=== PATIENT | female | born 1985 | race Caucasian/White ===

== ENCOUNTER 2017-10-15 18:55 | Inpatient (IN) | payer OTHER ==
[2017-10-15] MEDS ORDERED: LORazepam 1 MG TAB PO STA (19:34)
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
[2017-10-15 20:40] LABS: Amphetamine Screen,Urine Detected (NotDetected); Barbiturate Screen,Urine Not Detected (NotDetected); Benzodiazepines Screen,Urine Not Detected (NotDetected); Cocaine Screen,Urine Not Detected (NotDetected); Methadone Screen, Urine Not Detected (NotDetected); Opiate Screen,Urine Not Detected (NotDetected); Oxycodone Screen, Urine Not Detected (NotDetected); Phencyclidine Screen,Urine Not Detected (NotDetected); Tricyclic Antidepressant,Urine Not Detected (NotDetected); Urn Cannabinoid Scrn Detected (NotDetected)
[2017-10-15 20:52] LABS: Appearance,Urine Cloudy (Clear); Bacteria,Urine Many /hpf; Bilirubin,Urine Negative (Negative); Blood,Urine Moderate (Negative); Color,Urine Yellow; Glucose,Urine (UA) Negative (Negative); Ketones,Urine Negative (Negative); Leukocyte Esterase,Urine Moderate (Negative); Mucus,Urine Many /hpf; Nitrite,Urine Positive (Negative); PH, Urine 5.5 (5.0-8.0); Protein,Urine 1+ (Negative); Specific Gravity,Urine 1.025 (1.001-1.035); Squamous Epithelial Cell,Urine 5 /hpf (0-4); WBC,Urine 34 /hpf (0-5)
[2017-10-15 20:57] LABS: Basophils % (A) 0 %; Eosinophils # (A) 0.2 k/uL (0-0.7); Eosinophils % (A) 2 %; HCT 40.9 % (34.0-46.0); HGB 13.4 gm/dL (11.4-16.0); Lymphocytes # (A) 2.3 k/uL (1.0-4.8); Lymphocytes % (A) 22 %; MCH 28.2 pg (25.0-35.0); MCHC 32.9 g/dL (31.0-37.0); MCV 85.9 fL (80.0-100.0); Mean Platelet Volume 8.4; Monocytes % (A) 10 %; Neutrophils # (A) 6.6 k/uL (1.3-7.7); Neutrophils % (A) 63 %; Platelet Count 214 k/uL (150-450); RBC 4.76 m/uL (3.80-5.40); RDW 13.6 % (11.5-15.5); WBC 10.5 k/uL (3.8-10.6)
[2017-10-15 21:07] LABS: ALT 23 U/L (9-52); AST 13 U/L (14-36); Alkaline Phosphatase 47 U/L (38-126); Anion Gap 8 mmol/L; Blood Urea Nitrogen 11 mg/dL (7-17); Calcium 9.2 mg/dL (8.4-10.2); Carbon Dioxide 23 mmol/L (22-30); Chloride 108 mmol/L (98-107); Glucose 89 mg/dL (74-99); Potassium 3.9 mmol/L (3.5-5.1); Sodium 139 mmol/L (137-145); Total Bilirubin 0.7 mg/dL (0.2-1.3); Total Protein 7.1 g/dL (6.3-8.2)
[2017-10-16] MEDS ORDERED: cefTRIAXone IN SWFI 1,000 MG/10 ML SYRINGE IVP STA (00:50)
[2017-10-16] MEDS: SULFAMETHOX-TMP 800-160MG 1 EACH TAB PO SCH ×2 (01:09→17:21)
[2017-10-16] MEDS ORDERED: ACETAMINOPHEN TAB 500 MG TAB PO STA (13:58)
[2017-10-16] MEDS ORDERED: LORazepam 1 MG TAB PO STA (13:58)
[2017-10-16] MEDS ORDERED: MAGNESIUM HYDROXIDE 2,400 MG/10 ML CUP PO PRN (17:23)
[2017-10-16] MEDS ORDERED: MAG HYDROX/AL HYDROX/SIMETH 30 ML CUP PO PRN (17:23)
[2017-10-16] MEDS ORDERED: NICOTINE 14MG/24HR PATCH TRANSDERM SCH (17:30)
[2017-10-17] MEDS: SULFAMETHOX-TMP 800-160MG 1 EACH TAB PO SCH ×2 (06:26→17:53)
--- NOTE | 2017-10-17 08:23 | CONS ---
CONSULTATION DATE OF SERVICE: 10/16/2017. REASON FOR CONSULTATION: Advice regarding urinary tract infection and other multiple medical issues requested by Psychiatry. HISTORY OF PRESENT ILLNESS: This 32-year-old woman with a past medical history of multiple medical problems including history of migraine, history of bipolar, depression being followed by Dr. Lozano in the outpatient setting admitted for psychiatric evaluation. The patient had some history of binge drinking and substance abuse including methamphetamines, opiates and prescription drug abuse. Also the patient came to [facility]. The patient had features of UTI. Bactrim was initiated. There is no history of fever, rigors. No history of headache, loss of consciousness, seizures. PAST MEDICAL HISTORY: History of migraines, history of bipolar and depression, history of substance abuse. MEDICATIONS: Prior to admission include home medications Bactrim DS 1 p.o. b.i.d. ALLERGIES: None. FAMILY HISTORY: History of blood disorders, diabetes, hypertension, pancreatic cancer. SOCIAL HISTORY: No previous history of smoking. No history of alcohol intake. REVIEW OF SYSTEMS: ENT: No diminished hearing or vision. CARDIOVASCULAR: No angina. RESPIRATORY: No cough. GI: As mentioned earlier. : As mentioned earlier. NERVOUS SYSTEM: No numbness or weakness. ALLERGY/IMMUNOLOGY: No history of asthma or hay fever. MUSCULOSKELETAL: As mentioned earlier. HEMATOLOGY: No history of anemia. ENDOCRINE: No history of diabetes or hypothyroidism. CONSTITUTIONAL: As mentioned earlier. DERMATOLOGY: Negative. RHEUMATOLOGY: Negative. PSYCHIATRY: As mentioned earlier. PHYSICAL EXAMINATION: Alert, oriented x3. Pulse 82, blood pressure 120/97, respiration 18, temperature 97.7, pulse ox 98% on room air. HEENT: Conjunctivae normal. Oral mucosa moist. NECK: No jugular venous distention. No carotid bruit. No lymph node enlargement. CARDIOVASCULAR: S1, S2. RESPIRATORY: Breath sounds diminished in the bases. A few scattered rhonchi. No crackles. ABDOMEN: Soft, nontender. No mass palpable. LEGS: No edema, no swelling. NERVOUS SYSTEM: Higher functions as mentioned earlier. Otherwise, cranial nerves 2 through 12 grossly intact. No eye deviation. No nystagmus and no facial deviation. Moves all 4 limbs well. Power is normal. Gait is normal. No sensory abnormalities. LYMPHATICS: No lymphadenopathy in the neck, axillae, groin. SKIN: No ulcer, rash, bleeding. JOINT: No active deforming arthropathy. LABS: CBC within normal. Sodium 139, potassium 3.8. UA noted. ASSESSMENT: 1. Acute urinary tract infection. 2. Depression with possible suicidal ideations. 3. Bipolar. 4. History of nicotine dependence. 5. History of migraines. RECOMMENDATIONS AND DISCUSSION: This 32-year-old woman presented for psychiatric evaluation, at this time I recommend to continue current medications, continue with Bactrim for 5 days. Otherwise, I would recommend close follow up with primary physician in the outpatient setting. We will follow the patient closely with you. Thank you for letting us participate in the care of this patient. MMODL / IJN: [id number] /
[2017-10-17] MEDS: ARIPiprazole 10 MG TAB PO SCH (10:21)
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
[2017-10-17] MEDS: ACETAMINOPHEN TAB 325 MG TAB PO PRN (17:54)
[2017-10-17] MEDS ORDERED: MELATONIN 3 MG TABLET PO SCH (21:00)
[2017-10-18] MEDS: SULFAMETHOX-TMP 800-160MG 1 EACH TAB PO SCH ×2 (08:27→18:03)
[2017-10-18] MEDS: ARIPiprazole 10 MG TAB PO SCH (08:27)
[2017-10-18] MEDS: ACETAMINOPHEN TAB 325 MG TAB PO PRN ×2 (11:52→22:11)
[2017-10-18] MEDS: hydrOXYzine PAMOATE 25 MG CAP PO PRN ×2 (11:56→21:04)
--- NOTE | 2017-10-18 13:59 | P.PN ---
Progress Note - Text Progress Note Date: 10/18/17 Interval History: Patient is a 32-year-old female who was seen today and she states that she doesn't want to take the melatonin anymore because gave her headache made her dream area patient states that she went to 1 group yesterday. She states that she is feeling overwhelmed but can't tell me why and states that she doesn't like to be around people and asked why she doesn't go to many groups. Patient states that she is feeling anxious. She states that she's been writing down her thoughts. She denies any current suicidal ideation but continues to feel depressed. She said her appetite has improved. Mental Status: Appearance/Attitude: Patient is casually dressed, makes intermittent eye contact and is cooperative. Behavior: Patient does not exhibit any psychomotor agitation or retardation. Speech/Language: Patient's speech is spontaneous of normal volume and rhythm and she is coherent Thought Process: Patient is goal-directed there is no evidence of loose association or flight of ideas Thought Content: Patient denies any auditory or visual hallucinations no delusions or paranoid ideation or elicited. Patient states that she drank last night and did not like the melatonin and states that she has a headache this morning. She states she continues to feel overwhelmed for a number of reasons and isn't attending groups images like to be around people. She states her appetite is improved. She states she did not sleep at all last night and was up and down all evening. Suicidal/Homicidal Ideation: Patient denies any current suicidal or homicidal ideation Sensorium/Cognition: Patient is alert and oriented to person, place, and time and her recent remote memory are grossly intact Mood/Affect: Patient's mood remains depressed and her affect blunted, patient's complaining of feeling anxious Insight/Judgment: Patient's insight and judgment are fair Assessment: Patient states that she is not attending group sessions like to be around people, states that she didn't sleep at all last night was up and down all night it's documented the patient slept for 6 hours patient states that she only attended 1 group yesterday. She continues to feel overwhelmed for a number of reasons. Patient states that she is writing and that has been helpful. Patient reported no side effects from the medication. Plan: Patient will continue on Abilify 10 mg to stabilize her mood will discontinue the melatonin and will also prescribe Vistaril 25 mg 3 times a day as needed for her anxiety complaints. Patient stated that she is not interested in any inpatient or outpatient rehab programs. Patient was encouraged to attend groups and activities. Patient continues to require hospitalization to further stabilize her mood.
[2017-10-19] MEDS: SULFAMETHOX-TMP 800-160MG 1 EACH TAB PO SCH ×2 (06:05→18:08)
[2017-10-19] MEDS: ARIPiprazole 10 MG TAB PO SCH (09:04)
[2017-10-19] MEDS: hydrOXYzine PAMOATE 25 MG CAP PO PRN ×2 (09:04→19:11)
--- NOTE | 2017-10-19 12:19 | P.PN ---
Progress Note - Text Progress Note Date: 10/19/17 Interval History: Patient is a 32-year-old female who was seen today and she reports that she is feeling better as her thinking is improved and her focus is better. Patient states that she attended 2 groups today and is not feeling as overwhelmed or anxious. Patient feels the Vistaril has been helping and she reports no further headaches. She states that she slept for about 5-6 hours last night and was up in the middle of the night and then return to sleep. She reports that her mood is more stable and she is not at any further crying spells. She denied any suicidal thoughts. Mental Status: Appearance/Attitude: Patient is casually dressed and makes good eye contact and was cooperative Behavior: Patient does not exhibit any psychomotor agitation or retardation. Speech/Language: Patient's speech is spontaneous of normal volume and rhythm and she is coherent Thought Process: Patient is goal-directed there is no evidence of loose association or flight of ideas Thought Content: Patient denies any auditory or visual hallucinations and no delusions or paranoid ideation or elicited. She states that she is feeling less anxious the Vistaril has been beneficial and she is no longer having headaches. Patient states that she's been attending groups today and finds that her thinking is improved and her focus is improved. She states that she slept for about 5-6 hours last night and her appetite is good. Suicidal/Homicidal Ideation: She denies any current suicidal or so homicidal ideation Sensorium/Cognition: Patient is alert and oriented to person, place, and time and her recent and remote memory are grossly intact. Patient states that her focus is improved Mood/Affect: Patient's mood is less depressed and her affect is brighter, she states her mood is more stable Insight/Judgment: Patient's insight and judgment are fair Assessment: Patient reports that she is feeling less overwhelmed, reports no suicidal ideation and states her mood is more stable. She reports that her thinking and focus have improved as well. Patient states that the Vistaril been helping with her anxiety and she is no longer having any headaches. Patient states that she began attending groups today. Patient appeared much brighter than she did on prior assessments, patient made better eye contact and was more verbal. Patient reports no side effects from the medication. Plan: Patient will continue on Abilify 10 mg daily and Vistaril 25 mg as needed. Patient continues to require hospitalization to further stabilize her mood.
[2017-10-20] MEDS: hydrOXYzine PAMOATE 25 MG CAP PO PRN ×3 (04:54→20:36)
[2017-10-20] MEDS: SULFAMETHOX-TMP 800-160MG 1 EACH TAB PO SCH ×2 (07:25→17:44)
[2017-10-20] MEDS: ARIPiprazole 10 MG TAB PO SCH (08:40)
[2017-10-20] MEDS ORDERED: ARIPiprazole 5 MG TAB PO STA (09:06)
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
[2017-10-21] MEDS: ARIPiprazole 15 MG TAB PO SCH (08:15)
[2017-10-21] MEDS: hydrOXYzine PAMOATE 25 MG CAP PO PRN ×2 (08:16→19:56)
--- NOTE | 2017-10-21 10:39 | P.PN ---
Progress Note - Text Progress Note Date: 10/21/17 Interval History: Patient is a 32-year-old female who was seen today and she reports that she got upset again yesterday afternoon after speaking with her girlfriend who was upset that the patient had come for inpatient treatment and felt that she had just gone for outpatient treatment she would've been better off. Patient states that she spoke with staff and states that she was better able to cope with this and has been using journaling as a way to unwind at night. Patient states that she slept about 5 hours last night and feels rested this morning. She states that she is a longer constipated. She reports that she feels the increase in the dose of the Vistaril has been beneficial. Mental Status: Appearance/Attitude: Patient is casually dressed, making eye contact and is cooperative. Behavior: Patient does not exhibit any psychomotor agitation or retardation. Speech/Language: Patient's speech is spontaneous of normal volume and rhythm and she is coherent. Thought Process: Patient is goal-directed no evidence of loose association or flight of ideas Thought Content: Patient denies any auditory or visual hallucinations and no delusions or paranoid ideation or elicited. Patient states that she feels she is coping much better, dealt well with an issue with her girlfriend who was complaining that the patient had gone for inpatient treatment. Patient states that she feels less agitated and irritable and states that the Vistaril has been beneficial to help with anxiety. Patient states that she is eating and sleeping fairly well. Suicidal/Homicidal Ideation: Patient denies any current suicidal or homicidal ideation Sensorium/Cognition: Patient is alert and oriented to person, place, and time and her recent and remote memory are grossly intact Mood/Affect: Patient's mood is more positive less depressed and her affect is bright Insight/Judgment: Patient's insight and judgment are intact Assessment: Reports he feels that the increase in the Abilify and Vistaril been helpful, she feels she dealt well with an incident with her girlfriend yesterday. Patient feels that she is coping better with things not flying off the handle no longer feeling as irritable or agitated and not reporting any depressive symptoms. Patient states that she slept only about 5 hours last night and feels rested but states she had a hard time falling asleep but she continues to ruminate about the things that she needs to take care of. Patient reports no side effects from the medication. Patient is attending groups and activities. Plan: Patient will continue on Abilify 15 mg to target her mood and Vistaril 50 mg as needed to target her anxiety. Patient and I discussed discharge on Monday and she was agreeable with this plan.
[2017-10-21] MEDS: ACETAMINOPHEN TAB 325 MG TAB PO PRN ×2 (18:20→23:04)
[2017-10-22] MEDS: hydrOXYzine PAMOATE 25 MG CAP PO PRN ×2 (06:20→17:48)
[2017-10-22] MEDS: ARIPiprazole 15 MG TAB PO SCH (08:32)
--- NOTE | 2017-10-22 11:16 | P.PN ---
Progress Note - Text Progress Note Date: 10/22/17 Interval History: Patient is a 32-year-old female who presents today and states that her partner came last night and was accusing the patient and abandoning her children, and other concerns. Patient states that she was quite upset got up and left the room and then became even more upset as time went on. Patient stated that she had thoughts of hurting herself again but after speaking with the staff member was able to calm herself somewhat. Patient states that she did make a list of pros and cons of the relationship and was able to see that the cons outweigh the pros. Patient states that this is been a relationship that began in February of this year and the partner left her for her ex-partner and then returned to the patient. Patient states she's not been working, they' ve not been living together as when the patient became homeless she could not move in with the patient's cousin. Patient states she is able to see that the relationship is not a healthy one, that her partner has not been supportive of her decision to come into the hospital and that she did not abandoning her children. Patient reports that her sleep was disrupted last night she feels tired this morning but no longer feeling suicidal. Mental Status: Appearance/Attitude: Patient is casually dressed, makes good eye contact and is cooperative. Behavior: Patient did not display any psychomotor agitation or retardation, patient appears tired Speech/Language: Patient's speech was spontaneous of normal volume and rhythm and she is coherent.] Thought Process: Patient was goal-directed there is no evidence of loose association or flight of ideas Thought Content: Patient denied any auditory or visual hallucinations and no delusions or paranoid ideation were elicited. Patient had a long discussion regarding her interaction with her partner last night which became quite emotional and the patient was feeling suicidal last night. Patient states that her sleep was disrupted last night as she was ruminating about the situation and what her partner had set. Patient states that she slept poorly last night but her appetite remains good. Suicidal/Homicidal Ideation: Patient denies any current suicidal or homicidal ideation. Sensorium/Cognition: Patient is alert and oriented to person, place, and time and her recent and remote memory are grossly intact Mood/Affect: Patient's mood is euthymic and her affect is appropriate Insight/Judgment: Insight and judgment are fair Assessment: Patient had a difficult meeting with her partner last night who accused the patient of abandoning her children and other things. Patient was upset after the meeting with her abruptly left that meeting and had suicidal thoughts last evening. Patient was able to speak with staff and she states that she is a longer having any suicidal thoughts. Patient has been able to look at her partner statements last night in a more objective fashion and sees that they are not accurate representations of the situation. Patient sees that the relationship is not a healthy one. Patient reports that her sleep was disrupted, she slept for only 3 hours last night and is appearing tired this morning but states that she is eating and attending groups and activities. Plan: Patient continue on Abilify 15 mg daily and Vistaril when necessary for anxiety which she states is been effective. Patient and I discussed her relationship with her partner and her need to look at the relationship and an objective fashion. Patient states that her relationship with her cousin is a supportive one and that's who she is going to be living with upon discharge. Patient and I again discussed possible discharge tomorrow should the patient feel that she is ready for such.
[2017-10-23 06:30] VITALS: BP 120/77; PULSE 73; RESP 14; TEMP 97.6
[2017-10-23] MEDS: ARIPiprazole 15 MG TAB PO SCH (09:20)
[2017-10-23] MEDS: ACETAMINOPHEN TAB 325 MG TAB PO PRN (09:21)
--- NOTE | 2017-10-23 09:23 | P.DS ---
Providers Date of admission: 10/16/17 16:15 Expected date of discharge: 10/23/17 Attending physician: Marija Nick MD Consults: 10/16/17 17:23 Consult Physician Routine Consulting Provider: Júnior Varma Consult Reason/Comments: follow up H & P Do you want consulting provider notified?: Already Contacted Primary care physician: [facility] Course: Discharge Diagnosis: Bipolar disorder, type II current episode depressed; alcohol use disorder, mild; cannabis use disorder, mild; amphetamine use disorder, mild Reason for Admission: Patient is a 32-year-old female presented to the emergency room after trying to jump out of her running car. Patient states that she's become increasingly depressed recently, using alcohol in binges states she 's been homeless for the last month with her 3 children after she broke up with her boyfriend in [place]. Patient states she's been living with friends or in her car without her 3 children have been staying with friends or her cousin. Patient states that she has been feeling increasingly depressed with no energy or interest to do things and her sleep has been poor. She states that she spends a lot of time sleeping and her appetite is decreased. Patient states that she attempted to jump out of the car yesterday but her 3-year-old called for her and she stopped. She states she is not been taking care of her personal hygiene and does admit to caring for her 3 children. Patient states that she's been feeling overwhelmed having crying spells and feels that people are staring at her. She states that she wants to end her life and feels that her children will be better off without her. Patient states that she's been treated by her primary care physician's with antidepressants over the last number of years, she was last admitted at the age of 20 year but did not attend follow-up care. Patient states that she was initially treated at the age of 14 when she was sent to a [facility] due to violent behavior towards her mother, cutting herself as well as attempting suicide. She states that she was on medication for 3 months and then followed up at [facility] for one year but stopped the medication when she became at the age of 16 and has not been on medication on a consistent basis since that time. Patient is able to endorse a history of manic episodes where she will require less sleep and increased energy and be up cleaning and doing things at during the evening. She states that she has a lot of energy during these periods of time but that recently the episodes have only lasted for a day or 2. She states that her depressive episodes last for a much longer period of time. Patient states she is also been using alcohol, drinking a half of a fifth to a fifth on a daily basis until she passes out. Patient tried methamphetamine for the first time the other day states she uses marijuana occasionally and states that she's used IV heroin since the age of 29 but has not used for the last 7 months. Patient does use Adderall and has since her teenage years on a daily basis currently every other week or weekly. Mental status on Admission: Appearance/Attitude: Patient is casually dressed, makes intermittent eye contact and was cooperative Behavior: Patient does not exhibit any psychomotor agitation or retardation. Speech/Language: Patient's speech is spontaneous of normal volume and rhythm and she was coherent Thought Process: Patient is goal-directed there sounds loose association or flight of ideas Thought Content: Patient denies any auditory or visual hallucinations no delusions or paranoid ideation were elicited. Patient states that she's feeling overwhelmed, feels that people are staring at her and states that she's been feeling depressed with little to no energy, disrupted sleep and no appetite. Patient states that she feels like staying in bed all day. Suicidal/Homicidal Ideation: Patient states that she thought of jumping out of the car the other day but stopped when her daughter called for her and states that she continues to feel at times that her children would be better off without her. Patient states she has no current plan to act or intent. Patient denies any current homicidal ideation. Sensosrium/Cognition: Patient is alert and oriented to person, place, and time and her recent and remote memory are intact Mood/Affect: patient's mood is depressed and her affect is blunted Insight/Judgment: patient's insight and judgment are fair Hospital Course: Patient was admitted on a voluntary basis, placed on routine observation in group and activity therapy were ordered. Patient also had routine laboratory studies, medical consultation. Patient and I discussed her symptoms and she was able to endorse a history of manic episodes in the past and states she's been tried on antidepressants on and off in the past for her depressive episodes with poor results. Patient and I discussed the use and side effects of Abilify and the patient was placed on Abilify and titrated to a dose of 15 mg in the morning. Patient was also placed on Vistaril 50 mg every 8 hours when necessary to target her complaints of anxiety. Patient reported that she slowly began to feel less overwhelmed, less depressed, her sleep had improved and she was eating well. Patient had ongoing conflicts with her partner, who was not supportive of the patient being on the inpatient unit and patient was able to develop coping strategies to deal with the issues in that relationship. Patient states that she is going to live with her cousin where HER-2 older children are living and focus on her health as well as caring for her children. Patient stated that she was keeping a journal which had also helped, she was no longer having any suicidal ideation no longer was feeling overwhelmed and was not having any crying spells. Patient felt able to cope, she reported no side effects from the medication and felt that she had no need to continue to use alcohol as a way to relieve her stress. Patient and I reviewed good sleep hygiene as well as the need for exercise. Patient was eager to begin outpatient therapy, felt she was ready to return home. Patient was continued on Bactrim for 5 days to treat her urinary tract infection and the patient reported no further symptoms. Allergies No Known Allergies Allergy (Verified 10/16/17 10:10) Laboratory Last Values WBC 10.5 k/uL (3.8-10.6) 10/15/17 20:47 RBC 4.76 m/uL (3.80-5.40) 10/15/17 20:47 Hgb 13.4 gm/dL (11.4-16.0) 10/15/17 20:47 Hct 40.9 % (34.0-46.0) 10/15/17 20:47 MCV 85.9 fL (80.0-100.0) 10/15/17 20:47 MCH 28.2 pg (25.0-35.0) 10/15/17 20:47 MCHC 32.9 g/dL (31.0-37.0) 10/15/17 20:47 RDW 13.6 % (11.5-15.5) 10/15/17 20:47 Plt Count 214 k/uL (150-450) 10/15/17 20:47 Neutrophils % 63 % 10/15/17 20:47 Lymphocytes % 22 % 10/15/17 20:47 Monocytes % 10 % 10/15/17 20:47 Eosinophils % 2 % 10/15/17 20:47 Basophils % 0 % 10/15/17 20:47 Neutrophils # 6.6 k/uL (1.3-7.7) 10/15/17 20:47 Lymphocytes # 2.3 k/uL (1.0-4.8) 10/15/17 20:47 Monocytes # 1.0 k/uL (0-1.0) 10/15/17 20:47 Eosinophils # 0.2 k/uL (0-0.7) 10/15/17 20:47 Basophils # 0.0 k/uL (0-0.2) 10/15/17 20:47 Sodium 139 mmol/L (137-145) 10/15/17 20:47 Potassium 3.9 mmol/L (3.5-5.1) 10/15/17 20:47 Chloride 108 mmol/L (98-107) H 10/15/17 20:47 Carbon Dioxide 23 mmol/L (22-30) 10/15/17 20:47 Anion Gap 8 mmol/L 10/15/17 20:47 BUN 11 mg/dL (7-17) 10/15/17 20:47 Creatinine 0.70 mg/dL (0.52-1.04) 10/15/17 20:47 Est GFR (CKD-EPI)AfAm >90 (>60 ml/min/1.73 sqM) 10/15/17 20:47 Est GFR (CKD-EPI)NonAf >90 (>60 ml/min/1.73 sqM) 10/15/17 20:47 Glucose 89 mg/dL (74-99) 10/15/17 20:47 Calcium 9.2 mg/dL (8.4-10.2) 10/15/17 20:47 Total Bilirubin 0.7 mg/dL (0.2-1.3) 10/15/17 20:47 AST 13 U/L (14-36) L 10/15/17 20:47 ALT 23 U/L (9-52) 10/15/17 20:47 Alkaline Phosphatase 47 U/L (38-126) 10/15/17 20:47 Total Protein 7.1 g/dL (6.3-8.2) 10/15/17 20:47 Albumin 4.0 g/dL (3.5-5.0) 10/15/17 20:47 TSH 0.481 mIU/L (0.465-4.680) 10/15/17 20:47 Urine Color Yellow 10/15/17 20:19 Urine Appearance Cloudy (Clear) H 10/15/17 20:19 Urine pH 5.5 (5.0-8.0) 10/15/17 20:19 Ur Specific [place] 1.025 (1.001-1.035) 10/15/17 20:19 Urine Protein 1+ (Negative) H 10/15/17 20:19 Urine Glucose (UA) Negative (Negative) 10/15/17 20: Urine Ketones Negative (Negative) 10/15/17 20: Urine Blood Moderate (Negative) H 10/15/17 20:19 Urine Nitrite Positive (Negative) H 10/15/17 20: Urine Bilirubin Negative (Negative) 10/15/17 20:19 Urine Urobilinogen 3.0 mg/dL (<2.0) 10/15/17 20:19 Ur Leukocyte Esterase Moderate (Negative) H 10/15/17 20:19 Urine WBC 34 /hpf (0-5) H 10/15/17 20:19 Urine WBC Clumps Occasional /hpf (None) H 10/15/17 20:19 Ur Squamous Epith Cells 5 /hpf (0-4) H 10/15/17 20:19 Urine Bacteria Many /hpf (None) H 10/15/17 20:19 Urine Mucus Many /hpf (None) H 10/15/17 20:19 Urine HCG, Qual Not Detected (Not Detectd) 10/15/17 20:19 Urine Opiates Screen Not Detected (NotDetected) 10/15/17 20:19 Ur Oxycodone Screen Not Detected (NotDetected) 10/15/17 20:19 Urine Methadone Screen Not Detected (NotDetected) 10/15/17 20:19 Ur Propoxyphene Screen Not Detected (NotDetected) 10/15/17 20:19 Ur Barbiturates Screen Not Detected (NotDetected) 10/15/17 20:19 U Tricyclic Antidepress Not Detected (NotDetected) 10/15/17 20:19 Ur Phencyclidine Scrn Not Detected (NotDetected) 10/15/17 20:19 Ur Amphetamines Screen Detected (NotDetected) H 10/15/17 20:19 U Methamphetamines Scrn Not Detected (NotDetected) 10/15/17 20:19 U Benzodiazepines Scrn Not Detected (NotDetected) 10/15/17 20:19 Urine Cocaine Screen Not Detected (NotDetected) 10/15/17 20:19 U Marijuana (THC) Screen Detected (NotDetected) H 10/15/17 20:19 Discharge Mental Status: Appearance/Attitude: Patient is casually dressed, makes good eye contact and is cooperative. Behavior: Patient does not exhibit any psychomotor agitation or retardation. Speech/Language: Patient's speech is spontaneous of normal volume and rhythm and she is coherent Thought Process: Patient is goal-directed no evidence of loose association or flight of ideas Thought Content: Patient denies any auditory or visual hallucinations and no delusions or paranoid ideation or elicited. Patient states that she feels better able to cope with stressors, no longer feeling overwhelmed. Patient states that her sleep is restful and her appetite is good. She is not feeling hopeless or helpless and states she is eager to return to work. Suicidal/Homicidal Ideation: Patient denies any current suicidal or homicidal ideation Sensorium/Cognition: Patient is alert and oriented to person, place, and time and her recent and remote memory are grossly intact Mood/Affect: Patient's mood is pleasant and her affect is appropriate Insight/Judgment: Patient's insight and judgment are intact Risk Assessment: Patient's risk for readmission is low should she maintain sobriety, be compliant with medication and follow-up appointment Discharge Plan: Patient will be discharged to live with her cousin, she will continue on Abilify 15 mg daily and Vistaril 50 mg every 8 hours as needed for anxiety and will be given prescriptions for these. Patient was encouraged to remain sober and avoid all alcohol and drugs. She was encouraged to be compliant with her follow-up appointments and her medication. Patient and I again reviewed good sleep hygiene as well as the need for exercise. patient will follow up at [facility]. Patient Condition at Discharge: Stable Plan - Discharge Summary New Discharge Prescriptions: New ARIPiprazole [Abilify] 15 mg PO DAILY #14 tab hydrOXYzine PAMOATE [Vistaril] 50 mg PO Q8HR PRN #28 cap PRN Reason: Anxiety Discharge Medication List ARIPiprazole [Abilify] 15 mg PO DAILY #14 tab 10/23/17 [Rx] hydrOXYzine PAMOATE [Vistaril] 50 mg PO Q8HR PRN #28 cap 10/23/17 [Rx] Follow up Appointment(s)/Referral(s): [facility] [Outside] - 10/26/17 1:00 pm (10/26/17 @ 1 pm w/ Chaitanya) Warner Lozano MD [Primary Care Provider] - 1-2 days Patient Instructions/Handouts: Depression (DC), Suicide Prevention for Adults ( DC) Activity/Diet/Wound Care/Special Instructions: Activity and Diet as tolerated. Avoid the use of street drugs and alcohol. Take all medications as prescribed, when you are in need of refills contact your medical doctor or psychiatrist. Please go to all scheduled outpatient appointments for aftercare treatment. If symptoms return or worsen you can call the crisis line @ and/or return to the nearest emergency room for evaluation. Discharge Disposition: HOME SELF-CARE
[2017-10-23] MEDS: hydrOXYzine PAMOATE 25 MG CAP PO PRN (12:00)
== END 2017-10-23 12:55 | disposition home or self-care (01) | DRG 885 ==
LOC: EC 18:55 → 3MHU 10-16 16:15
PROVIDERS: ADMIT Psychiatry & Neurology Psychiatry; ATTEND Psychiatry & Neurology Psychiatry
DX: F31.81 Bipolar II disorder (principal); N39.0 Urinary tract infection, site not specified; R45.851 Suicidal ideations; F10.10 Alcohol abuse, uncomplicated; F12.90 Cannabis use, unspecified, uncomplicated; F15.10 Other stimulant abuse, uncomplicated; F41.9 Anxiety disorder, unspecified; K59.00 Constipation, unspecified; Z59.0 Homelessness; Z79.899 Other long term (current) drug therapy; Z80.0 Family history of malignant neoplasm of digestive organs; Z81.8 Family history of other mental and behavioral disorders; Z82.0 Family history of epilepsy and other diseases of the nervous system; Z82.49 Family history of ischemic heart disease and other diseases of the circulatory system; Z83.3 Family history of diabetes mellitus; Z87.891 Personal history of nicotine dependence; Z83.2 Family history of diseases of the blood and blood-forming organs and certain disorders involving the immune mechanism; Z91.5 Personal history of self-harm; Z91.410 Personal history of adult physical and sexual abuse
CPT/HCPCS: 36415; 80053; 80306; 81001; 81025; 82075; 84443; 85025; 99285

== ENCOUNTER → 2018-01-29 | Outpatient (CLI) | payer OTHER ==
[2018-01-29 16:59] LABS: Hemoglobin A1C 5.1 % (4.0-6.0)
[2018-01-29 17:25] LABS: Calcium 8.7 mg/dL (8.7-10.3); Carbon Dioxide 24.8 mmol/L (21.6-31.8); Chloride 109 mmol/L (96-109); Cholesterol 128 mg/dL (0-200); Glucose 93 mg/dL (70-110); LDL Cholesterol,Calculated 70.2 mg/dL (0.0-131.0); Lithium <0.1 mmol/L (1.0-1.2); Potassium 4.5 mmol/L (3.5-5.5); Sodium 138 mmol/L (135-145)
== END | disposition home or self-care (01) ==
LOC: LABWHC1 08:21
PROVIDERS: ATTEND Psychiatry & Neurology Psychiatry
DX: Z51.81 Encounter for therapeutic drug level monitoring (principal); Z79.899 Other long term (current) drug therapy
CPT/HCPCS: 36415; 80048; 80061; 80178; 83036; 84439; 84443

== ENCOUNTER → 2018-12-20 | Outpatient (CLI) | payer OTHER ==
[2018-12-20 11:23] LABS: ALT 13 U/L (8-44); AST 17 U/L (13-35); Albumin/Globulin Ratio 1.87 (1.60-3.17); Alkaline Phosphatase 56 U/L (41-126); Bilirubin, Conjugated <0.20 mg/dL (0.20-0.40); Globulin 2.3 g/dL (1.6-3.3); Glucose 96 mg/dL (70-110); Total Bilirubin 0.4 mg/dL (0.2-1.2); Total Protein 6.6 g/dL (6.2-8.2)
== END ==
LOC: LABWHC1 06:49
PROVIDERS: ATTEND Nurse Practitioner Family
DX: Z51.81 Encounter for therapeutic drug level monitoring (principal); Z79.899 Other long term (current) drug therapy
CPT/HCPCS: 36415; 80076; 80175; 82947; 83036

== ENCOUNTER → 2020-11-09 | Outpatient (CLI) | payer OTHER ==
[2020-11-09 12:14] LABS: African American GFR (CKD) 110.7 (60.0-200.0); Chol/HDL Ratio 3.9; LDL Cholesterol,Calculated 113.6 mg/dL (0.0-131.0); Lithium 0.3 mmol/L (0.5-1.2); Non-African American GFR(CKD) 95.5 (60.0-200.0); VLDL Calculation 31.4 mg/dL (5.00-40.00)
[2020-11-09 13:50] LABS: Hemoglobin A1C 5.1 % (4.0-6.0)
== END | disposition home or self-care (01) ==
LOC: LABWHC1 07:48
PROVIDERS: ATTEND Psychiatry & Neurology Psychiatry
DX: Z79.899 Other long term (current) drug therapy (principal)
CPT/HCPCS: 36415; 80061; 80178; 82565; 82947; 83036; 84439; 84443; 84520

== ENCOUNTER 2020-12-28 15:32 | Inpatient (IN) | payer MEDICAID, OTHER ==
[2020-12-28 18:22] LABS: Appearance,Urine Clear (Clear); Bacteria,Urine Rare /hpf; Bilirubin,Urine Negative (Negative); Blood,Urine Trace (Negative); Color,Urine Yellow; Glucose,Urine (UA) Negative (Negative); Ketones,Urine Negative (Negative); Leukocyte Esterase,Urine Negative (Negative); Mucus,Urine Rare /hpf; Nitrite,Urine Negative (Negative); PH, Urine 5.5 (5.0-8.0); Protein,Urine Negative (Negative); RBC,Urine 1 /hpf (0-5); Squamous Epithelial Cell,Urine 2 /hpf (0-4); Urobilinogen,Urine <2.0 mg/dL (<2.0); WBC,Urine 1 /hpf (0-5)
[2020-12-28 18:31] LABS: Cocaine Screen,Urine Not Detected (NotDetected); Phencyclidine Screen,Urine Not Detected (NotDetected); Urn Cannabinoid Scrn Not Detected (NotDetected)
[2020-12-28 18:32] LABS: Amphetamine Screen,Urine Detected (NotDetected); Barbiturate Screen,Urine Not Detected (NotDetected); Benzodiazepines Screen,Urine Not Detected (NotDetected); Methadone Screen, Urine Not Detected (NotDetected); Opiate Screen,Urine Not Detected (NotDetected); Oxycodone Screen, Urine Not Detected (NotDetected); Tricyclic Antidepressant,Urine Not Detected (NotDetected)
--- NOTE | 2020-12-28 18:43 | ED ---
Psych HPI - General Chief Complaint: Psychiatric Symptoms Stated Complaint: Mental Health Time Seen by Provider: 12/28/20 16:47 Source: patient Mode of arrival: EMS - History of Present Illness Initial Comments: 35-year-old female past medical history of polysubstance abuse, migraines presents to the emergency department with reported suicidal ideations. Patient states that she has a long-standing history of depression however over the past couple of days she has felt more suicidal. She does have a plan to take a bunch of Motrin tablets. States that she has not done anything to harm herself. Patient does see a counselor. Did call her counselor today and reported her symptoms. The crisis hotline got involved and recommended that she come into the emergency department for evaluation. She denies any homicidal ideations. Does admit to methamphetamine use, last of which was on Monday. Denies alcohol use. Has been hospitalized previously in 2018 for depression. She is supposed to be taking medications for depression however has not been on him. Denies concern for . No other alleviating, precipitating or modifying factors - Related Data Home Medications Medication Instructions Recorded Confirmed Cholecalciferol (Vitamin D3) 125 mcg PO DAILY 12/28/20 12/28/20 [Vitamin D3 (125 MCG = 5,000 IU)] Previous Rx's Medication Instructions Recorded Benztropine Mesylate [Cogentin] 0.5 mg PO BID PRN #7 tablet 01/01/21 Topiramate [Topamax] 25 mg PO BID 30 Days tab 01/01/21 Ziprasidone [Geodon] 40 mg PO BID 30 Days cap 01/01/21 Allergies Allergy/AdvReac Type Severity Reaction Status Date / Time No Known Allergies Allergy Verified 12/28/20 18:34 Review of Systems ROS Statement: Those systems with pertinent positive or pertinent negative responses have been documented in the HPI. ROS Other: All systems not noted in ROS Statement are negative. Past Medical History Past Medical History: No Reported History Additional Past Medical History / Comment(s): migraines History of Any Multi-Drug Resistant Organisms: None Reported Past Surgical History: Section Additional Past Surgical History / Comment(s): ovarian cyst removal Past Anesthesia/Blood Transfusion Reactions: No Reported Reaction Past Psychological History: Bipolar, Depression Smoking Status: Never smoker Past Alcohol Use History: Occasional Past Drug Use History: Methamphetamine, Opiates, Prescription Drug Abuse - Past Family History Father Family Medical History: Blood Disorder, Cancer, Diabetes Mellitus, Hypertension Additional Family Medical History / Comment(s): type 1 diabetes, pancreatic cancer Mother Family Medical History: Diabetes Mellitus, Hypertension, Seizure Disorder Additional Family Medical History / Comment(s): type 2 General Exam Limitations: no limitations General appearance: alert, in no apparent distress Head exam: Present: atraumatic, normocephalic, normal inspection Eye exam: Present: normal appearance, PERRL, EOMI. Absent: scleral icterus, conjunctival injection, periorbital swelling ENT exam: Present: normal exam, mucous membranes moist Neck exam: Present: normal inspection. Absent: tenderness, meningismus, lymphadenopathy Respiratory exam: Present: normal lung sounds bilaterally. Absent: respiratory distress, wheezes, rales, rhonchi, stridor Cardiovascular Exam: Present: regular rate, normal rhythm, normal heart sounds. Absent: systolic murmur, diastolic murmur, rubs, gallop, clicks GI/Abdominal exam: Present: soft, normal bowel sounds. Absent: distended, tenderness, guarding, rebound, rigid Extremities exam: Present: normal inspection, full ROM, normal capillary refill. Absent: tenderness, pedal edema, joint swelling, calf tenderness Back exam: Present: normal inspection Neurological exam: Present: alert, oriented X3, CN II-XII intact Psychiatric exam: Present: depressed, suicidal ideation Skin exam: Present: warm, dry, intact, normal color. Absent: rash Course Vital Signs 12/28/20 12/28/20 15:44 22:42 Temperature 98.1 F 97.3 F L Pulse Rate 79 89 Respiratory 19 16 Rate Blood Pressure 134/84 133/78 O2 Sat by Pulse 98 98 Oximetry Medical Decision Making - Medical Decision Making Upon arrival patient was placed into room 13. A thorough history and physical exam was performed. She does provide a urine sample which demonstrates rare bacteria, trace blood, positive for amphetamines and methamphetamines. HCG not detected. She is elevated by EPS will be admitted. She is awaiting a bed on the floor - Lab Data Result diagrams: 12/29/20 06:02 12/29/20 06:02 Lab Results 12/28/20 12/28/20 12/28/20 Range/Units 17:53 17:53 18:32 Urine Color Yellow Urine Appearance Clear (Clear) Urine pH 5.5 (5.0-8.0) Ur Specific [place] 1.020 (1.001-1.035) Urine Protein Negative (Negative) Urine Glucose (UA) Negative (Negative) Urine Ketones Negative (Negative) Urine Blood Trace H (Negative) Urine Nitrite Negative (Negative) Urine Bilirubin Negative (Negative) Urine Urobilinogen <2.0 (<2.0) mg/dL Ur Leukocyte Esterase Negative (Negative) Urine RBC 1 (0-5) /hpf Urine WBC 1 (0-5) /hpf Ur Squamous Epith Cells 2 (0-4) /hpf Urine Bacteria Rare H (None) /hpf Urine Mucus Rare H (None) /hpf Urine HCG, Qual Not Detected (Not Detectd) Urine Opiates Screen Not Detected (NotDetected) Ur Oxycodone Screen Not Detected (NotDetected) Urine Methadone Screen Not Detected (NotDetected) Ur Propoxyphene Screen Not Detected (NotDetected) Ur Barbiturates Screen Not Detected (NotDetected) U Tricyclic Antidepress Not Detected (NotDetected) Ur Phencyclidine Scrn Not Detected (NotDetected) Ur Amphetamines Screen Detected H (NotDetected) U Methamphetamines Scrn Detected H (NotDetected) U Benzodiazepines Scrn Not Detected (NotDetected) Urine Cocaine Screen Not Detected (NotDetected) U Marijuana (THC) Screen Not Detected (NotDetected) Coronavirus (PCR) Not Detected (Not Detectd) Disposition Clinical Impression: Suicidal ideation, Depression Disposition: TRANSFER TO PSYCH HOSP/UNIT Condition: Stable Is patient prescribed a controlled substance at d/c from ED?: No Decision to Admit Reason: Admit from EC Decision Date: 12/28/20 Decision Time: 18:42
[2020-12-28] MEDS ORDERED: MAGNESIUM HYDROXIDE 2,400 MG/10 ML CUP PO PRN (23:45)
[2020-12-28] MEDS ORDERED: MAG HYDROX/AL HYDROX/SIMETH 30 ML CUP PO PRN (23:45)
[2020-12-28] MEDS ORDERED: traZODone HCL 100 MG TAB PO PRN (23:47)
[2020-12-28] MEDS ORDERED: LORazepam 2 MG/ML INJ IM PRN (23:47)
[2020-12-28] MEDS ORDERED: HALOPERIDOL LACTATE 5 MG/ML 1 ML VIAL IM PRN (23:47)
[2020-12-28] MEDS ORDERED: haloperidoL 5 MG TAB PO PRN (23:47)
--- NOTE | 2020-12-29 01:20 | P.CONS ---
History of Present Illness - Reason for Consult Consult date: 12/29/20 - History of Present Illness Patient is a 35-year-old female with a PMH of polysubstance abuse including methamphetamine and EtOH who presented to the emergency room with depression and suicidal ideation. The patient was admitted to the mental health unit where she was seen and evaluated with the mental health unit RN. I was never alone with the patient. The patient reports that she had been suicidal due to her persi stent substance use, with the last used 2 days prior to presentation. 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 She reports drinking a fifth to a fifth and a half of vodka and rum on the days that she is not using methamphetamine which she snorts. The patient denied ever being hospitalized for drinking or ever having any alcohol withdrawal seizures. The patient denied any physical complaints. She denied chest discomfort, shortness of breath, fever, chills. She denied nausea, vomiting, abdominal pain, diarrhea. Urine toxicology from the emergency room was positive for methamphetamines. Review of systems: Pertinent positives and negatives as discussed in HPI, a complete review of systems was performed and all other systems are negative. Physical examination: General: non toxic, no distress, appears at stated age, obese Derm: no unusual rashes/lesions no unusual ecchymoses, warm, dry Head: atraumatic, normocephalic, symmetric Eyes: EOMI, no lid lag, anicteric sclera, pupils equal round reactive to light ENT: Nose and ears atraumatic, no thrush, no pharyngeal erythema Neck: No thyromegaly, no cervical lymphadenopathy, trachea midline, supple Mouth: no lip lesion, mucus membranes moist Cardiovascular: S1S2 reg, no murmur, positive posterior tibial pulse bilateral, no edema, capillary refill less than 2 seconds Lungs: CTA bilateral, no rhonchi, no rales , no accessory muscle use Abdominal: soft, nontender to palpation, no guarding, no appreciable organomegaly, normal bowel sounds Ext: no gross muscle atrophy, muscle strength 5 out of 5 in all 4 extremities grossly, no contractures, Neuro: CN II-XI grossly intact, light touch intact all 4 extremities, finger to nose within normal limits, Psych: Alert, oriented, appropriate affect Assessment/plan Substance abuse, methamphetamines and EtOH -Strongly advised on the importance of cessation -Thiamine -Multivitamin daily -Order for signs of withdrawal Depression and suicidal ideation -As per psychiatry Thank you for allowing us to participate in the care of this patient. We will follow peripherally. Do not hesitate to contact us with questions. Someone can be reached from the [facility] hospitalist group at all hours of the day at [phone]. Past Medical History Past Medical History: No Reported History Additional Past Medical History / Comment(s): migraines History of Any Multi-Drug Resistant Organisms: None Reported Past Surgical History: Section Additional Past Surgical History / Comment(s): C-sections (2002, 2006, 2014) ovarian cyst removal Past Anesthesia/Blood Transfusion Reactions: No Reported Reaction Past Psychological History: Bipolar, Depression Additional Psychological History / Comment(s): medicated with ativan before , not currently medicated Smoking Status: Former smoker Past Alcohol Use History: Occasional Past Drug Use History: Methamphetamine - Past Family History Father Family Medical History: Blood Disorder, Cancer, Diabetes Mellitus, Hypertension Additional Family Medical History / Comment(s): type 1 diabetes, pancreatic cancer Mother Family Medical History: Diabetes Mellitus, Hypertension, Seizure Disorder Additional Family Medical History / Comment(s): type 2 Medications and Allergies Home Medications Medication Instructions Recorded Confirmed Type Cholecalciferol (Vitamin D3) 125 mcg PO DAILY 12/28/20 12/28/20 History [Vitamin D3 (125 MCG = 5,000 IU)] FLUoxetine HCL [PROzac] 10 mg PO DAILY 12/28/20 12/28/20 History [place] Carbonate 900 mg PO HS 12/28/20 12/28/20 History OLANZapine [ZyPREXA] 5 mg PO HS 12/28/20 12/28/20 History buPROPion XL [Wellbutrin XL] See Taper PO DAILY 12/28/20 12/28/20 History Allergies Allergy/AdvReac Type Severity Reaction Status Date / Time No Known Allergies Allergy Verified 12/28/20 18:34 Physical Exam Vitals: Vital Signs Temp Pulse Pulse Resp BP BP Pulse Ox 12/28/20 23:06 97.7 F 82 16 113/69 99 12/28/20 22:42 97.3 F L 89 16 133/78 98 12/28/20 15:44 98.1 F 79 19 134/84 98 Intake and Output 12/28/20 12/28/20 12/29/20 14:59 22:59 06:59 Other: Weight 91.172 kg 89.584 kg Results Labs: Abnormal Lab Results - Last 24 Hours (Table) 12/28/20 Range/Units 17:53 Urine Blood Trace H (Negative) Urine Bacteria Rare H (None) /hpf Urine Mucus Rare H (None) /hpf Ur Amphetamines Screen Detected H (NotDetected) U Methamphetamines Scrn Detected H (NotDetected)
[2020-12-29 06:38] LABS: Basophils % (A) 0 %; Eosinophils # (A) 0.5 k/uL (0-0.7); Eosinophils % (A) 4 %; HCT 41.4 % (34.0-46.0); HGB 12.7 gm/dL (11.4-16.0); Lymphocytes # (A) 2.6 k/uL (1.0-4.8); Lymphocytes % (A) 25 %; MCH 27.2 pg (25.0-35.0); MCHC 30.6 g/dL (31.0-37.0); MCV 88.9 fL (80.0-100.0); Mean Platelet Volume 9.5; Monocytes # (A) 0.9 k/uL (0-1.0); Monocytes % (A) 9 %; Neutrophils # (A) 5.9 k/uL (1.3-7.7); Neutrophils % (A) 57 %; Platelet Count 212 k/uL (150-450); RBC 4.66 m/uL (3.80-5.40); RDW 13.7 % (11.5-15.5); WBC 10.3 k/uL (3.8-10.6)
[2020-12-29 07:15] LABS: ALT 9 U/L (4-34); AST 16 U/L (14-36); African American GFR (CKD) >90 (>60 ml/min/1.73 sqM); Albumin 3.6 g/dL (3.5-5.0); Alkaline Phosphatase 44 U/L (38-126); Anion Gap 6 mmol/L; Blood Urea Nitrogen 8 mg/dL (7-17); Calcium 9.2 mg/dL (8.4-10.2); Carbon Dioxide 26 mmol/L (22-30); Chloride 106 mmol/L (98-107); Glucose 94 mg/dL (74-99); Non-African American GFR(CKD) >90 (>60 ml/min/1.73 sqM); Potassium 4.4 mmol/L (3.5-5.1); Sodium 138 mmol/L (137-145); Total Bilirubin 0.3 mg/dL (0.2-1.3); Total Protein 6.7 g/dL (6.3-8.2)
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
[2020-12-29] MEDS: ACETAMINOPHEN TAB 325 MG TAB PO PRN (14:20)
[2020-12-29 15:38] LABS: Chol/HDL Ratio 4.73 Ratio; LDL Cholesterol,Calculated 98.4 mg/dL (0.0-131.0)
[2020-12-29] MEDS: ZIPRASIDONE 20 MG CAP PO SCH (20:31)
[2020-12-29] MEDS: TOPIRAMATE 25 MG TAB PO SCH (20:31)
[2020-12-30] MEDS: ZIPRASIDONE 20 MG CAP PO SCH ×2 (07:57→20:45)
[2020-12-30] MEDS: TOPIRAMATE 25 MG TAB PO SCH ×2 (07:57→20:45)
--- NOTE | 2020-12-30 11:07 | P.PN ---
Progress Note - Text Progress Note Date: 12/30/20 Interval History: Patient was seen resting in bed and was directable and agreeable to speak with parts data writer in the office. The patient reports she feels a little better. She is currently not reporting any suicidal or homicidal ideation, intention, and/or plan. She does state that her was recently laid off from work and is now home and feels like she would be safe at home with her . When further explored if she would feel safe if her was not home, the patient then reported she would not feel safe if that was the case. She is not reporting any auditory or visual hallucinations. She reports no paranoia or other delusions. She reports no significant side effects of her medications but did state she had some vivid dreams last night. Mental Status Exam: General Appearance: Patient appears to be stated age is alert, directable, and cooperative. Multiple tattoos, undercut hair cut with dyed hair. Behavior: Patient is calmly seated without any agitated behavior. Eye contact is appropriate. Speech: Patient's speech is fluent and nonpressured. Mood/Affect: Mood is improving mildly, affect is congruent and constricted. Suicidality/Homicidality: Patient denies having any suicidal or homicidal ideation intent or plan. Perceptions: Patient denies any visual hallucinations and denies any auditory hallucinations Though content/process: There is no evidence of any delusional thought content and thought process is linear and goal-directed. Memory and concentration: AOX3, grossly intact for the purposes of this session Judgment and insight: Improving mildly Vital Signs Temp 97.6 F 12/30/20 06:52 Pulse 64 12/30/20 06:52 Resp 16 12/30/20 06:52 BP 106/68 12/30/20 06:52 Pulse Ox 99 12/28/20 23:06 Laboratory Results - Last 24 Hours 12/29/20 12/29/20 06:02 06:[address] Glu mg/dL 91 Hemoglobin A1c 4.8 Triglycerides 135.00 Cholesterol 159.00 LDL Cholesterol, Calc 98.4 VLDL Cholesterol, Calc 27.00 HDL Cholesterol 33.60 L Cholesterol/HDL Ratio 4.73 Assessment Bipolar 2 disorder, depressive episode Posttraumatic stress disorder Borderline personality disorder Methamphetamine use disorder Alcohol use disorder, binge type Plan: -Patient continues to meet criteria for inpatient psychiatric admission for symptom stabilization and safety. Patient has signed adult voluntary form and medication consent and was placed in patient's chart. -Medications: Increase Geodon to 40 mg twice daily for mood stabilization Continue Topamax 25 mg twice daily for off label use for PTSD, mood stabilization and added benefit in treating migraines. -When necessary Ativan and Haldol for agitation/aggression. -NRT - nicotine patch -SW on board for discharge planning. Encouraged the patient to participate in milieu.
[2020-12-30] MEDS: ACETAMINOPHEN TAB 325 MG TAB PO PRN (12:29)
[2020-12-30] MEDS: LORazepam 1 MG TAB PO PRN (17:38)
[2020-12-31] MEDS: TOPIRAMATE 25 MG TAB PO SCH ×2 (08:23→21:28)
[2020-12-31] MEDS: ZIPRASIDONE 20 MG CAP PO SCH ×2 (08:23→21:29)
[2020-12-31] MEDS: LORazepam 1 MG TAB PO PRN (08:24)
[2020-12-31] MEDS: ACETAMINOPHEN TAB 325 MG TAB PO PRN ×2 (08:24→17:35)
--- NOTE | 2020-12-31 11:36 | P.PN ---
Progress Note - Text Progress Note Date: 12/31/20 Interval History: Patient was seen resting in bed and was directable and agreeable to speak with telegraphic typewriter operator in the office. The patient was that she is feeling fairly better than yesterday. She states yesterday, she was experiencing suicidal ideation as well as extreme urges to use methamphetamines. She reports that if she was discharged yesterday, she would either have killed herself or used methamphetamines. She reports that the cravings appeared to be less today. She is currently not reporting any suicidal or homicidal ideation, intention, and/or plan. She is not reporting any auditory or visual hallucinations. She is not reporting any paranoia or other delusions at this time. The patient continues to report that she feels like she is "maybe 50% safe" to go home. She reports that she is concerned about her ongoing urges for self-harm or her ongoing urges to use. She is otherwise adherent with her medications and is not reporting any significant side effects at this time. She is wishing to be referred to intensive outpatient treatment for her mental health and for her substance abuse. Mental Status Exam: General Appearance: Patient appears to be stated age is alert, directable, and cooperative. Multiple tattoos, undercut hair cut with dyed hair. Behavior: Patient is calmly seated without any agitated behavior. Eye contact is appropriate. Speech: Patient's speech is fluent and nonpressured. Mood/Affect: Mood is improving mildly, affect is congruent and constricted. Suicidality/Homicidality: Patient denies having any suicidal or homicidal ideation intent or plan. Perceptions: Patient denies any visual hallucinations and denies any auditory hallucinations Though content/process: There is no evidence of any delusional thought content and thought process is linear and goal-directed. Memory and concentration: AOX3, grossly intact for the purposes of this session Judgment and insight: Improving mildly Vital Signs Temp 97.3 F L 12/31/20 06:52 Pulse 108 H 12/31/20 08:27 Resp 14 12/31/20 06:52 BP 108/74 12/31/20 08:27 Pulse Ox 99 12/28/20 23:06 Assessment Bipolar 2 disorder, depressive episode Posttraumatic stress disorder Borderline personality disorder Methamphetamine use disorder Alcohol use disorder, binge type Plan: -Patient continues to meet criteria for inpatient psychiatric admission for symptom stabilization and safety. Patient has signed adult voluntary form and medication consent and was placed in patient's chart. -Medications: Continue Geodon 40 mg twice daily for mood stabilization Continue Topamax 25 mg twice daily for off label use for PTSD, mood stabilization and added benefit in treating migraines. -When necessary Ativan and Haldol for agitation/aggression. -NRT - nicotine patch -SW on board for discharge planning. Encouraged the patient to participate in milieu.
[2020-12-31] MEDS ORDERED: BENZTROPINE MESYLATE 1 MG TAB PO STA (21:22)
[2021-01-01 06:36] VITALS: BP 116/65; PULSE 64; RESP 16; TEMP 96.4
[2021-01-01] MEDS: ZIPRASIDONE 20 MG CAP PO SCH (08:10)
[2021-01-01] MEDS: TOPIRAMATE 25 MG TAB PO SCH (08:10)
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
== END 2021-01-01 12:17 | disposition home or self-care (01) | DRG 885 ==
LOC: EC 15:32 → 3MHU 22:28
PROVIDERS: ADMIT Psychiatry & Neurology Psychiatry; ATTEND Psychiatry & Neurology Psychiatry
DX: F31.81 Bipolar II disorder (principal); R45.851 Suicidal ideations; Z91.128 Patient's intentional underdosing of medication regimen for other reason; F15.10 Other stimulant abuse, uncomplicated; Z20.822 Contact with and (suspected) exposure to COVID-19; F10.10 Alcohol abuse, uncomplicated; F43.10 Post-traumatic stress disorder, unspecified; F60.3 Borderline personality disorder; F41.9 Anxiety disorder, unspecified; T50.916A Underdosing of multiple unspecified drugs, medicaments and biological substances, initial encounter; Z79.899 Other long term (current) drug therapy; Z62.810 Personal history of physical and sexual abuse in childhood; Z56.0 Unemployment, unspecified; Z86.69 Personal history of other diseases of the nervous system and sense organs; Z87.42 Personal history of other diseases of the female genital tract; Z98.891 History of uterine scar from previous surgery; Z87.891 Personal history of nicotine dependence; Z98.890 Other specified postprocedural states; Z71.51 Drug abuse counseling and surveillance of drug abuser; Z71.41 Alcohol abuse counseling and surveillance of alcoholic; Z81.1 Family history of alcohol abuse and dependence; Z81.8 Family history of other mental and behavioral disorders; Z83.3 Family history of diabetes mellitus; Z82.49 Family history of ischemic heart disease and other diseases of the circulatory system; Z82.0 Family history of epilepsy and other diseases of the nervous system; Z80.0 Family history of malignant neoplasm of digestive organs; Z91.51 Personal history of suicidal behavior
CPT/HCPCS: 80053; 80061; 80306; 81001; 81025; 82075; 83036; 84443; 85025; 87635; 99285

== ENCOUNTER 2021-06-26 18:24 | Emergency (ER) | payer OTHER ==
[2021-06-26 18:29] VITALS: TEMP 97.5
[2021-06-26] MEDS ORDERED: KETOROLAC 15 MG/ML 1 ML VIAL IVP STA (19:26)
[2021-06-26] MEDS ORDERED: diphenhydrAMINE 50 MG/ML 1 ML VIAL IVP STA (19:26)
[2021-06-26] MEDS ORDERED: METOCLOPRAMIDE 5 MG/ML 2 ML VIAL IVP STA (19:26)
[2021-06-26] MEDS ORDERED: DEXAMETHASONE SOD PHOSPHATE 10 MG/ML 1 ML VIAL IV STA (19:26)
[2021-06-26] MEDS ORDERED: MAGNESIUM SULFATE-D5W PMX 1 GM in DEXTROSE/WATER 1 100ML.BAG IVPB ONE (19:26)
[2021-06-26] MEDS ORDERED: SODIUM CHLORIDE 0.9% 1,000 ML IV STA (19:26)
--- NOTE | 2021-06-26 20:15 | CT ---
EXAMINATION TYPE: CT brain wo con DATE OF EXAM: 06/26/2021 COMPARISON: 10/01/2013 HISTORY: Headache. CT DLP: 1064.4 mGycm Automated exposure control for dose reduction was used. Ventricles of normal size. There is no mass effect or midline shift. There is no sign of intracranial hemorrhage. Calvarium is intact. There is no evidence of cerebral edema. Skull base is intact. IMPRESSION: Normal unenhanced head CT scan. No change.
[2021-06-26 21:17] LABS: Basophils # (A) 0.1 k/uL (0-0.2); Basophils % (A) 1 %; Eosinophils # (A) 0.5 k/uL (0-0.7); Eosinophils % (A) 4 %; HCT 45.3 % (34.0-46.0); HGB 13.8 gm/dL (11.4-16.0); Lymphocytes # (A) 2.7 k/uL (1.0-4.8); Lymphocytes % (A) 19 %; MCH 26.5 pg (25.0-35.0); MCHC 30.5 g/dL (31.0-37.0); MCV 86.9 fL (80.0-100.0); Mean Platelet Volume 9.6; Monocytes # (A) 1.6 k/uL (0-1.0); Monocytes % (A) 11 %; Neutrophils % (A) 63 %; Platelet Count 296 k/uL (150-450); RBC 5.21 m/uL (3.80-5.40); RDW 13.7 % (11.5-15.5); WBC 14.4 k/uL (3.8-10.6)
[2021-06-26 22:05] LABS: ALT 11 U/L (4-34); AST 15 U/L (14-36); African American GFR (CKD) >90 (>60 ml/min/1.73 sqM); Albumin 3.8 g/dL (3.5-5.0); Alkaline Phosphatase 57 U/L (38-126); Anion Gap 7 mmol/L; Blood Urea Nitrogen 11 mg/dL (7-17); Calcium 8.7 mg/dL (8.4-10.2); Carbon Dioxide 22 mmol/L (22-30); Chloride 108 mmol/L (98-107); Glucose 109 mg/dL (74-99); Non-African American GFR(CKD) >90 (>60 ml/min/1.73 sqM); Potassium 3.9 mmol/L (3.5-5.1); Sodium 137 mmol/L (137-145); Total Bilirubin 0.6 mg/dL (0.2-1.3); Total Protein 7.1 g/dL (6.3-8.2)
[2021-06-26] MEDS ORDERED: DIAZEPAM 5 MG/ML 2 ML INJ IVP STA (22:50)
[2021-06-26] MEDS ORDERED: ONDANSETRON 4 MG/2 ML VIAL IVP STA (22:50)
--- NOTE | 2021-06-26 22:52 | ED ---
Headache HPI - General Chief Complaint: Headache Stated Complaint: Migraine Time Seen by Provider: 06/26/21 18:40 Mode of arrival: ambulatory Limitations: no limitations - History of Present Illness Initial Comments: 36 her old female past history of chronic migraines presents emergency Department with migraines. States that she is currently under the care of her neurologist and has an MRI upcoming. She was prescribed Imitrex for her chronic migraines and took 2 doses today. When it did not alleviate her headache she came into the emergency room. She denies any fevers. Does admit to some bilateral neck stiffness. Admits nausea with inability to hold down anything in cluding food and drink. No recent travel or trauma. No sick contacts of similar symptoms. Does admit to photophobia. No unilateral numbness or weakness. No confusion reported from the patient's girlfriend. Denies chest pain, shortness of breath, abdominal pain or changes in her bowel or bladder habits. She does state that this is one of the most severe headaches that she has had. There was no sudden onset. No other alleviating, precipitating mopping factors - Related Data Home Medications Medication Instructions Recorded Confirmed SUMAtriptan succinate [Imitrex] 50 mg PO DAILY PRN 06/02/21 06/02/21 Previous Rx's Medication Instructions Recorded Cephalexin [Keflex] 500 mg PO Q12HR 5 Days #10 cap 06/02/21 Allergies Allergy/AdvReac Type Severity Reaction Status Date / Time No Known Allergies Allergy Verified 06/26/21 18:29 Review of Systems ROS Statement: Those systems with pertinent positive or pertinent negative responses have been documented in the HPI. ROS Other: All systems not noted in ROS Statement are negative. Past Medical History Past Medical History: No Reported History Additional Past Medical History / Comment(s): migraines History of Any Multi-Drug Resistant Organisms: None Reported Past Surgical History: Section Additional Past Surgical History / Comment(s): ovarian cyst removal Past Anesthesia/Blood Transfusion Reactions: No Reported Reaction Past Psychological History: Bipolar, Depression Smoking Status: Current some day smoker Past Alcohol Use History: Occasional Past Drug Use History: Methamphetamine, Opiates, Prescription Drug Abuse - Past Family History Father Family Medical History: Blood Disorder, Cancer, Diabetes Mellitus, Hypertension Additional Family Medical History / Comment(s): type 1 diabetes, pancreatic cancer Mother Family Medical History: Diabetes Mellitus, Hypertension, Seizure Disorder Additional Family Medical History / Comment(s): type 2 General Exam Limitations: no limitations General appearance: alert, in no apparent distress Head exam: Present: atraumatic, normocephalic, normal inspection Eye exam: Present: normal appearance, PERRL, EOMI. Absent: scleral icterus, conjunctival injection, periorbital swelling ENT exam: Present: normal exam, mucous membranes moist Neck exam: Present: normal inspection. Absent: tenderness, meningismus, lymphadenopathy Respiratory exam: Present: normal lung sounds bilaterally. Absent: respiratory distress, wheezes, rales, rhonchi, stridor Cardiovascular Exam: Present: regular rate, normal rhythm, normal heart sounds. Absent: systolic murmur, diastolic murmur, rubs, gallop, clicks GI/Abdominal exam: Present: soft, normal bowel sounds. Absent: distended, tenderness, guarding, rebound, rigid Extremities exam: Present: normal inspection, full ROM, normal capillary refill. Absent: tenderness, pedal edema, joint swelling, calf tenderness Back exam: Present: normal inspection Neurological exam: Present: alert, oriented X3, CN II-XII intact Psychiatric exam: Present: normal affect, normal mood Skin exam: Present: warm, dry, intact, normal color. Absent: rash Course Vital Signs 06/26/21 06/26/21 06/26/21 18:25 20:29 22:25 Temperature 97.5 F L Pulse Rate 87 82 82 Respiratory 20 18 16 Rate Blood Pressure 110/79 112/84 117/81 O2 Sat by Pulse 97 96 96 Oximetry 06/26/21 23:07 Temperature Pulse Rate 81 Respiratory 18 Rate Blood Pressure 124/78 O2 Sat by Pulse 96 Oximetry Medical Decision Making - Medical Decision Making Upon arrival patient was placed into room 14. There are history of physical exam was performed. IV access established the patient is given a migraine cocktail. Laboratory studies were conducted. CT was performed as the patient is reporting that this is one of her worst headaches which demonstrates no acute findings. Patient is reevaluated and feels markedly improved after medication administration. Feels comfortable going home. I discussed diagnosis, differential and treatment options. Patient is to follow up with her neurologist for further evaluation of her migraines and return for any new or worsening symptoms. Patient's agreed and was discharged home in stable condition - Lab Data Result diagrams: 06/26/21 20:46 06/26/21 21:37 Lab Results 06/26/21 06/26/21 Range/Units 20:46 21:37 WBC 14.4 H (3.8-10.6) k/uL RBC 5.21 (3.80-5.40) m/uL Hgb 13.8 (11.4-16.0) gm/dL Hct 45.3 (34.0-46.0) % MCV 86.9 (80.0-100.0) fL MCH 26.5 (25.0-35.0) pg MCHC 30.5 L (31.0-37.0) g/dL RDW 13.7 (11.5-15.5) % Plt Count 296 (150-450) k/uL MPV 9.6 Neutrophils % 63 % Lymphocytes % 19 % Monocytes % 11 % Eosinophils % 4 % Basophils % 1 % Neutrophils # 9.0 H (1.3-7.7) k/uL Lymphocytes # 2.7 (1.0-4.8) k/uL Monocytes # 1.6 H (0-1.0) k/uL Eosinophils # 0.5 (0-0.7) k/uL Basophils # 0.1 (0-0.2) k/uL Sodium 137 (137-145) mmol/L Potassium 3.9 (3.5-5.1) mmol/L Chloride 108 H (98-107) mmol/L Carbon Dioxide 22 (22-30) mmol/L Anion Gap 7 mmol/L BUN 11 (7-17) mg/dL Creatinine 0.65 (0.52-1.04) mg/dL Est GFR (CKD-EPI)AfAm >90 (>60 ml/min/1.73 sqM) Est GFR (CKD-EPI)NonAf >90 (>60 ml/min/1.73 sqM) Glucose 109 H (74-99) mg/dL Calcium 8.7 (8.4-10.2) mg/dL Total Bilirubin 0.6 (0.2-1.3) mg/dL AST 15 (14-36) U/L ALT 11 (4-34) U/L Alkaline Phosphatase 57 (38-126) U/L Total Protein 7.1 (6.3-8.2) g/dL Albumin 3.8 (3.5-5.0) g/dL Disposition Clinical Impression: Migraine Disposition: HOME SELF-CARE Condition: Stable Instructions (If sedation given, give patient instructions): Acute Headache (ED) Additional Instructions: Please follow up with the neurologist for further evaluation. Return for any new or worsening symptoms. Is patient prescribed a controlled substance at d/c from ED?: No Referrals: None,Stated [Primary Care Provider] - 1-2 days Time of Disposition: 22:52
[2021-06-26 23:09] VITALS: BP 124/78; PULSE 81; RESP 18
== END 2021-06-26 23:25 | disposition home or self-care (01) ==
LOC: EC 18:24
DX: G43.909 Migraine, unspecified, not intractable, without status migrainosus (principal); F17.200 Nicotine dependence, unspecified, uncomplicated; E11.9 Type 2 diabetes mellitus without complications; I10 Essential (primary) hypertension
CPT/HCPCS: 36415; 80053; 85025; 70450; 99284; 96365; 96375; 96361; J1200; J1100; J2765; J3360; J2405; J3475; J1885

== ENCOUNTER 2022-01-03 17:38 | Observation (INO) | payer OTHER ==
--- NOTE | 2022-01-03 19:26 | ED ---
General Adult HPI - General Chief complaint: Overdose Stated complaint: mental health Time Seen by Provider: 01/03/22 18:32 Source: patient, RN notes reviewed Mode of arrival: ambulatory Limitations: no limitations - History of Present Illness Initial comments: Patient is a pleasant 36-year-old female presenting to the emergency Department with depression. Patient omits to being depressed and having suicidal thoughts. Patient took approximately 20 Tylenol yesterday, approximately 20 hours ago. Patient still has thoughts of self-harm. Patient has relapsed with opiate use last weekend. Occasional alcohol use. No hallucinations. No homicidal t houghts. - Related Data Home Medications Medication Instructions Recorded Confirmed No Known Home Medications 01/03/22 01/03/22 Allergies Allergy/AdvReac Type Severity Reaction Status Date / Time No Known Allergies Allergy Verified 01/03/22 20:33 Review of Systems ROS Statement: Those systems with pertinent positive or pertinent negative responses have been documented in the HPI. ROS Other: All systems not noted in ROS Statement are negative. Constitutional: Denies: fever Eyes: Denies: eye pain ENT: Denies: ear pain Respiratory: Denies: cough Cardiovascular: Denies: chest pain Endocrine: Denies: fatigue Gastrointestinal: Denies: abdominal pain, nausea, vomiting Genitourinary: Denies: dysuria Musculoskeletal: Denies: back pain Skin: Denies: rash Neurological: Denies: weakness Psychiatric: Reports: as per HPI, depression, suicidal thoughts Past Medical History Past Medical History: No Reported History Additional Past Medical History / Comment(s): migraines History of Any Multi-Drug Resistant Organisms: None Reported Past Surgical History: Section Additional Past Surgical History / Comment(s): ovarian cyst removal Past Anesthesia/Blood Transfusion Reactions: No Reported Reaction Past Psychological History: Bipolar, Depression Smoking Status: Current some day smoker Past Alcohol Use History: Occasional Past Drug Use History: Methamphetamine, Opiates, Prescription Drug Abuse - Past Family History Father Family Medical History: Blood Disorder, Cancer, Diabetes Mellitus, Hypertension Additional Family Medical History / Comment(s): type 1 diabetes, pancreatic cancer Mother Family Medical History: Diabetes Mellitus, Hypertension, Seizure Disorder Additional Family Medical History / Comment(s): type 2 General Exam Limitations: no limitations General appearance: alert, in no apparent distress Head exam: Present: normocephalic Eye exam: Present: normal appearance Neck exam: Present: normal inspection Respiratory exam: Present: normal lung sounds bilaterally Cardiovascular Exam: Present: regular rate, normal rhythm GI/Abdominal exam: Present: soft. Absent: tenderness Extremities exam: Present: normal inspection Neurological exam: Present: alert Psychiatric exam: Present: depressed Skin exam: Absent: abrasion Course Vital Signs 01/03/22 01/03/22 01/03/22 18:24 19:51 20:08 Temperature 98 F Pulse Rate 78 81 84 Respiratory 16 16 16 Rate Blood Pressure 145/100 131/89 138/90 O2 Sat by Pulse 100 100 98 Oximetry EKG Findings - EKG Comments: EKG Findings:: Sinus rhythm rate 65. [place] 150. QRS 86. QT 390. QTC 402. Normal axis. Normal QRS. No acute ST change. Medical Decision Making - Medical Decision Making Poison control does recommend N-acetylcysteine. Patient reevaluated and updated. Case was discussed with Dr. stewart, who will admit covering hospital call. - Lab Data Result diagrams: 01/03/22 19:20 01/03/22 19:20 Lab Results 01/03/22 01/03/22 01/03/22 Range/Units 19:20 19:20 20:00 WBC 15.0 H (3.8-10.6) k/uL RBC 5.24 (3.80-5.40) m/uL Hgb 15.1 (11.4-16.0) gm/dL Hct 45.1 (34.0-46.0) % MCV 86.0 (80.0-100.0) fL MCH 28.7 (25.0-35.0) pg MCHC 33.4 (31.0-37.0) g/dL RDW 13.6 (11.5-15.5) % Plt Count 272 (150-450) k/uL MPV 10.1 Neutrophils % 66 % Lymphocytes % 19 % Monocytes % 9 % Eosinophils % 3 % Basophils % 0 % Neutrophils # 9.9 H (1.3-7.7) k/uL Lymphocytes # 2.8 (1.0-4.8) k/uL Monocytes # 1.3 H (0-1.0) k/uL Eosinophils # 0.4 (0-0.7) k/uL Basophils # 0.1 (0-0.2) k/uL PT 10.5 (9.0-12.0) sec INR 1.0 (<1.2) APTT 25.1 (22.0-30.0) sec Sodium 138 (137-145) mmol/L Potassium 4.0 (3.5-5.1) mmol/L Chloride 108 H (98-107) mmol/L Carbon Dioxide 20 L (22-30) mmol/L Anion Gap 10 mmol/L BUN 11 (7-17) mg/dL Creatinine 0.64 (0.52-1.04) mg/dL Est GFR (CKD-EPI)AfAm >90 (>60 ml/min/1.73 sqM) Est GFR (CKD-EPI)NonAf >90 (>60 ml/min/1.73 sqM) Glucose 87 (74-99) mg/dL Calcium 9.7 (8.4-10.2) mg/dL Total Bilirubin 0.3 (0.2-1.3) mg/dL AST 27 (14-36) U/L ALT 15 (4-34) U/L Alkaline Phosphatase 50 (38-126) U/L Total Protein 7.5 (6.3-8.2) g/dL Albumin 4.4 (3.5-5.0) g/dL Salicylates 23.0 mg/dL Acetaminophen 17.2 ug/mL Serum Alcohol <10 mg/dL Disposition Clinical Impression: Acetaminophen overdose Disposition: ADMITTED IP TO THIS HOSP Is patient prescribed a controlled substance at d/c from ED?: No Referrals: None,Stated [Primary Care Provider] - 1-2 days Time of Disposition: 20:46
[2022-01-03 19:31] LABS: Basophils # (A) 0.1 k/uL (0-0.2); Basophils % (A) 0 %; Eosinophils # (A) 0.4 k/uL (0-0.7); Eosinophils % (A) 3 %; HCT 45.1 % (34.0-46.0); HGB 15.1 gm/dL (11.4-16.0); Lymphocytes # (A) 2.8 k/uL (1.0-4.8); Lymphocytes % (A) 19 %; MCH 28.7 pg (25.0-35.0); MCHC 33.4 g/dL (31.0-37.0); Mean Platelet Volume 10.1; Monocytes # (A) 1.3 k/uL (0-1.0); Monocytes % (A) 9 %; Neutrophils # (A) 9.9 k/uL (1.3-7.7); Neutrophils % (A) 66 %; Platelet Count 272 k/uL (150-450); RBC 5.24 m/uL (3.80-5.40); RDW 13.6 % (11.5-15.5)
[2022-01-03 19:43] LABS: ALT 15 U/L (4-34); Acetaminophen 17.2 ug/mL; African American GFR (CKD) >90 (>60 ml/min/1.73 sqM); Albumin 4.4 g/dL (3.5-5.0); Alcohol <10 mg/dL; Anion Gap 10 mmol/L; Blood Urea Nitrogen 11 mg/dL (7-17); Calcium 9.7 mg/dL (8.4-10.2); Carbon Dioxide 20 mmol/L (22-30); Chloride 108 mmol/L (98-107); Glucose 87 mg/dL (74-99); Non-African American GFR(CKD) >90 (>60 ml/min/1.73 sqM); Sodium 138 mmol/L (137-145); Total Bilirubin 0.3 mg/dL (0.2-1.3); Total Protein 7.5 g/dL (6.3-8.2)
[2022-01-03 19:49] LABS: AST 27 U/L (14-36); Alkaline Phosphatase 50 U/L (38-126)
[2022-01-03 20:28] LABS: Partial Thromboplastin Time 25.1 sec (22.0-30.0); Prothrombin Time 10.5 sec (9.0-12.0)
[2022-01-03] MEDS ORDERED: ACETYLCYSTEINE 6,000 MG/30 ML VIAL PO STA (20:48)
[2022-01-03] MEDS ORDERED: NALOXONE 0.4 MG/ML 1 ML VIAL IV PRN (20:51)
[2022-01-03 22:02] LABS: Amphetamine Screen,Urine Not Detected (NotDetected); Barbiturate Screen,Urine Not Detected (NotDetected); Benzodiazepines Screen,Urine Not Detected (NotDetected); Cocaine Screen,Urine Not Detected (NotDetected); Methadone Screen, Urine Not Detected (NotDetected); Opiate Screen,Urine Not Detected (NotDetected); Oxycodone Screen, Urine Not Detected (NotDetected); Phencyclidine Screen,Urine Not Detected (NotDetected); Tricyclic Antidepressant,Urine Not Detected (NotDetected); Urn Cannabinoid Scrn Not Detected (NotDetected)
[2022-01-03] MEDS: ACETYLCYSTEINE 6,000 MG/30 ML VIAL PO SCH ×2 (22:03→22:04)
[2022-01-04 00:48] LABS: ALT 13 U/L (4-34); AST 19 U/L (14-36); Acetaminophen <10.0 ug/mL; African American GFR (CKD) >90 (>60 ml/min/1.73 sqM); Albumin 4.1 g/dL (3.5-5.0); Albumin/Globulin Ratio 1.4; Alkaline Phosphatase 51 U/L (38-126); Anion Gap 8 mmol/L; Blood Urea Nitrogen 13 mg/dL (7-17); Calcium 9.3 mg/dL (8.4-10.2); Carbon Dioxide 22 mmol/L (22-30); Chloride 108 mmol/L (98-107); Globulin 2.9 g/dL; Glucose 92 mg/dL (74-99); Non-African American GFR(CKD) >90 (>60 ml/min/1.73 sqM); Potassium 4.2 mmol/L (3.5-5.1); Sodium 138 mmol/L (137-145); Total Bilirubin 0.2 mg/dL (0.2-1.3)
--- NOTE | 2022-01-04 03:10 | P.HPIM ---
History of Present Illness H&P Date: 01/03/22 The patient is a 36-year-old female with a PMH of polysubstance abuse including methamphetamine, and heroin who presents to the emergency room after an intentional Tylenol overdose. The patient reports that she relapsed 5 days ago with both methamphetamines and heroin after being clean for several months. She reports that over the past few days her mental health has been deteriorating home and she has been contemplating suicide, due to which she proceeded to take 20 tablets of Tylenol extra strength yesterday evening. She does not recall the exact time but states that it was in the evening possibly around 6-8 pm. She denies any nausea or vomiting. States that she again took 2 more tablets this morning as she woke up with a headache. She denied any additional complaints and states that she feels that her baseline at the time of interview. Denied experiencing fever, chills, cough, nausea, vomiting, abdominal pain, diarrhea. EKG in the emergency room revealed sinus rhythm at [address]/T-wave changes noted as reviewed by me. The case was reportedly discussed by the ED physician with poison control who recommended oral N-acetylcysteine and continued monitoring of the patient. evaluation was remarkable for WBC count of 15.0 with LFTs unremarkable and urine toxicology also negative. Review of systems: Pertinent positives and negatives as discussed in HPI, a complete review of systems was performed and all other systems are negative. Physical examination: General: non toxic, no distress, appears at stated age, obese Derm: no unusual rashes/lesions, warm Head: atraumatic, normocephalic, symmetric Eyes: EOMI, no lid lag, anicteric sclera, pupils equal round reactive to light ENT: Nose and ears atraumatic Neck: No cervical lymphadenopathy, trachea midline, supple Mouth: no lip lesion, mucus membranes moist Cardiovascular: S1S2 reg, no murmur, positive dorsalis pedis pulse bilateral, no edema Lungs: CTA bilateral, no rhonchi, no rales, no accessory muscle use Abdominal: soft, nontender to palpation, no guarding Ext: muscle strength 5 out of 5 in all 4 extremities grossly, no gross muscle atrophy, no contractures, Neuro: CN II-XI grossly intact, no gross focal neuro deficits Psych: Alert, oriented, appropriate affect Assessment/plan Intentional Tylenol overdose -Continue with N-acetylcysteine protocol -Psychiatry consulted -Suicide precautions -Monitor LFTs Polysubstance abuse -Advised on the importance of cessation DVT prophylaxis -Heparin subcu The patient is admitted with an anticipated less than 2 midnight stay for evaluation of tylenol overdose CODE STATUS: Full Code Discussed with: Patient Anticipated discharge date: in am Anticipated discharge place: Home Past Medical History Past Medical History: No Reported History Additional Past Medical History / Comment(s): migraines History of Any Multi-Drug Resistant Organisms: None Reported Past Surgical History: Section Additional Past Surgical History / Comment(s): ovarian cyst removal Past Anesthesia/Blood Transfusion Reactions: No Reported Reaction Past Psychological History: Bipolar, Depression Smoking Status: Current some day smoker Past Alcohol Use History: Occasional Past Drug Use History: Methamphetamine, Opiates, Prescription Drug Abuse - Past Family History Father Family Medical History: Blood Disorder, Cancer, Diabetes Mellitus, Hypertension Additional Family Medical History / Comment(s): type 1 diabetes, pancreatic cancer Mother Family Medical History: Diabetes Mellitus, Hypertension, Seizure Disorder Additional Family Medical History / Comment(s): type 2 Medications and Allergies Home Medications Medication Instructions Recorded Confirmed Type No Known Home Medications 01/03/22 01/03/22 History Allergies Allergy/AdvReac Type Severity Reaction Status Date / Time No Known Allergies Allergy Verified 01/03/22 20:33 Physical Exam Vitals: Vital Signs Temp Pulse Resp BP Pulse Ox 01/03/22 21:26 76 16 144/82 98 01/03/22 20:08 84 16 138/90 98 01/03/22 19:51 81 16 131/89 100 01/03/22 18:24 98 F 78 16 145/100 100 Intake and Output 01/03/22 01/03/22 01/03/22 06:59 14:59 22:59 Other: Weight 86.818 kg Results CBC & Chem 7: 01/03/22 19:20 01/03/22 23:51 Labs: Abnormal Lab Results - Last 24 Hours (Table) 01/03/22 01/03/22 Range/Units 19:20 19:20 WBC 15.0 H (3.8-10.6) k/uL Neutrophils # 9.9 H (1.3-7.7) k/uL Monocytes # 1.3 H (0-1.0) k/uL Chloride 108 H (98-107) mmol/L Carbon Dioxide 20 L (22-30) mmol/L
[2022-01-04 06:07] LABS: Prothrombin Time 11.2 sec (9.0-12.0)
[2022-01-04 06:18] LABS: ALT 13 U/L (4-34); AST 19 U/L (14-36); African American GFR (CKD) >90 (>60 ml/min/1.73 sqM); Alkaline Phosphatase 48 U/L (38-126); Anion Gap 10 mmol/L; Basophils # (A) 0.1 k/uL (0-0.2); Basophils % (A) 1 %; Blood Urea Nitrogen 12 mg/dL (7-17); Calcium 8.6 mg/dL (8.4-10.2); Carbon Dioxide 19 mmol/L (22-30); Chloride 110 mmol/L (98-107); Eosinophils # (A) 0.7 k/uL (0-0.7); Eosinophils % (A) 5 %; Glucose 96 mg/dL (74-99); HCT 40.8 % (34.0-46.0); HGB 13.8 gm/dL (11.4-16.0); Lymphocytes # (A) 3.6 k/uL (1.0-4.8); Lymphocytes % (A) 25 %; MCH 28.9 pg (25.0-35.0); MCHC 33.8 g/dL (31.0-37.0); MCV 85.4 fL (80.0-100.0); Mean Platelet Volume 10.6; Monocytes # (A) 1.4 k/uL (0-1.0); Monocytes % (A) 10 %; Neutrophils # (A) 8.2 k/uL (1.3-7.7); Neutrophils % (A) 56 %; Non-African American GFR(CKD) >90 (>60 ml/min/1.73 sqM); Platelet Count 248 k/uL (150-450); Potassium 3.6 mmol/L (3.5-5.1); RBC 4.78 m/uL (3.80-5.40); RDW 13.7 % (11.5-15.5); Sodium 139 mmol/L (137-145); Total Bilirubin 0.3 mg/dL (0.2-1.3); Total Protein 6.7 g/dL (6.3-8.2); WBC 14.6 k/uL (3.8-10.6)
[2022-01-04] MEDS: HEPARIN SODIUM,PORCINE/PF 5,000 UNIT/0.5 ML SYRINGE SQ SCH ×3 (07:02→23:33)
[2022-01-04] MEDS: ACETYLCYSTEINE 6,000 MG/30 ML VIAL PO SCH ×5 (07:02→23:33)
[2022-01-04] MEDS ORDERED: PANTOPRAZOLE 40 MG/10 ML VIAL IV SCH (09:00)
--- NOTE | 2022-01-04 13:39 | P.PN ---
Subjective Progress Note Date: 01/04/22 The patient is a 36-year-old female with a PMH of polysubstance abuse including methamphetamine, and heroin who presents to the emergency room after an intentional Tylenol overdose. The patient reports that she relapsed 5 days ago with both methamphetamines and heroin after being clean for several months. She reports that over the past few days her mental health has been deteriorating home and she has been contemplating suicide, due to which she proceeded to take 20 tablets of Tylenol extra strength yesterday evening. EKG in the emergency room revealed sinus rhythm at [address]/T-wave changes noted as reviewed by me. The case was reportedly discussed by the ED physician with poison cont rol who recommended oral N-acetylcysteine and continued monitoring of the patient. evaluation was remarkable for WBC count of 15.0 with LFTs unremarkable and urine toxicology also negative. Patient seen and examined. No acute events overnight. Patient continues to report suicidal ideations. She has no other complaints besides anxiety. General: non toxic, no distress, appears at stated age, obese Derm: no unusual rashes/lesions, warm Head: atraumatic, normocephalic, symmetric Eyes: EOMI, no lid lag, anicteric sclera ENT: Nose and ears atraumatic Neck: No cervical lymphadenopathy, trachea midline, supple Mouth: no lip lesion, mucus membranes moist Cardiovascular: S1S2 reg, no murmur, positive dorsalis pedis pulse bilateral, no edema Lungs: CTA bilateral, no rhonchi, no rales, no accessory muscle use Abdominal: soft, nontender to palpation, no guarding Ext: muscle strength 5 out of 5 in all 4 extremities grossly, no gross muscle atrophy, no contractures, Neuro: no gross focal neuro deficits Psych: Alert, oriented, appropriate affect #Intentional Tylenol overdose #Leukocytosis #Metabolic acidosis #Polysubstance abuse #Suicidal ideation -Continue with N-acetylcysteine protocol, patient refusing -Psychiatry consulted -Suicide precautions -Monitor LFTs -Advised on the importance of cessation Patient is medically cleared for discharge to Psychiatry unit. She is refusing N-acetylcysteine protocol. We will continue to follow. Objective - Vital Signs Vital signs: Vital Signs Temp 98.3 F 01/04/22 12:00 Pulse 77 01/04/22 12:00 Resp 17 11/08/22 12:00 BP 115/74 01/04/22 12:00 Pulse Ox 97 01/04/22 12:00 FiO2 Intake & Output 01/03/22 01/04/22 01/04/22 18:59 06:59 18:59 Weight 86.818 kg 86.818 kg - Labs CBC & Chem 7: 01/04/22 05:45 01/04/22 05:45 Labs: Abnormal Lab Results - Last 24 Hours (Table) 01/03/22 01/03/22 01/03/22 Range/Units 19:20 19:20 23:51 WBC 15.0 H (3.8-10.6) k/uL Neutrophils # 9.9 H (1.3-7.7) k/uL Monocytes # 1.3 H (0-1.0) k/uL Chloride 108 H 108 H (98-107) mmol/L Carbon Dioxide 20 L (22-30) mmol/L 01/04/22 01/04/22 Range/Units 05:45 05:45 WBC 14.6 H (3.8-10.6) k/uL Neutrophils # 8.2 H (1.3-7.7) k/uL Monocytes # 1.4 H (0-1.0) k/uL Chloride 110 H (98-107) mmol/L Carbon Dioxide 19 L (22-30) mmol/L
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
[2022-01-04 21:55] VITALS: BP 131/89; PULSE 68; RESP 18; TEMP 97.6
[2022-01-04] MEDS ORDERED: IBUPROFEN 400 MG TAB PO STA (23:59)
--- NOTE | 2022-01-05 08:08 | P.DS ---
Providers Date of admission: 01/03/22 20:51 Expected date of discharge: 01/05/22 Attending physician: Tip Ba MD Consults: 01/03/22 20:51 Consult Physician Routine Consulting Provider: Lauri Robbins Consult Reason/Comments: Suicide attempt Do you want consulting provider notified?: Yes Primary care physician: Stated None Hospital Course: The patient is a 36-year-old female with a PMH of polysubstance abuse including methamphetamine, and heroin who presents to the emergency room after an intentional Tylenol overdose. The patient reports that she relapsed 5 days ago with both methamphetamines and heroin after being clean for several months. She reports that over the past few days her mental health has been deteriorating home and she has been contemplating suicide, due to which she proceeded to take 20 tablets of Tylenol extra strength yesterday evening. EKG in the emergency room revealed sinus rhythm at [address]/T-wave changes noted as reviewed by me. The case was reportedly discussed by the ED physician with poison control who recommended oral N-acetylcysteine and continued monitoring of the patient. Evaluation was remarkable for WBC count of 15.0 with LFTs unremarkable and urine toxicology also negative. Patient was started on N-acetylcysteine protocol, but patient refused. Psychiatry was consulted and recommended inpatient psychiatry. General: non toxic, no distress, appears at stated age, obese Derm: no unusual rashes/lesions, warm Head: atraumatic, normocephalic, symmetric Eyes: EOMI, no lid lag, anicteric sclera ENT: Nose and ears atraumatic Neck: No cervical lymphadenopathy, trachea midline, supple Mouth: no lip lesion, mucus membranes moist Cardiovascular: S1S2 reg, no murmur, no edema Lungs: CTA bilateral, no rhonchi, no rales, no accessory muscle use Ext: muscle strength 5 out of 5 in all 4 extremities grossly, no gross muscle atrophy Neuro: no gross focal neuro deficits Psych: Alert, oriented, appropriate affect Discharge Diagnosis: #Intentional Tylenol overdose #Leukocytosis #Metabolic acidosis #Polysubstance abuse #Suicidal ideation This complex discharge took about 35 minutes to complete. Patient Condition at Discharge: Stable Plan - Discharge Summary Discharge Rx Participant: No New Discharge Prescriptions: New Acetylcysteine [Mucomyst] 6,000 mg PO Q4HR each Discharge Medication List Acetylcysteine [Mucomyst] 6,000 mg PO Q4HR each 01/04/22 [Rx] Follow up Appointment(s)/Referral(s): None,Stated [Primary Care Provider] - 1-2 days Discharge Disposition: TRANSFER TO PSYCH HOSP/UNIT
== END 2022-01-05 01:13 ==
LOC: EC 17:38 → 6NMEDSUR 20:51
PROVIDERS: ADMIT Internal Medicine; ATTEND Internal Medicine
DX: T39.1X2A Poisoning by 4-Aminophenol derivatives, intentional self-harm, initial encounter (principal); F32.A Depression, unspecified; F31.9 Bipolar disorder, unspecified; F17.200 Nicotine dependence, unspecified, uncomplicated; F15.10 Other stimulant abuse, uncomplicated; F11.10 Opioid abuse, uncomplicated; D72.829 Elevated white blood cell count, unspecified; E87.20 Acidosis, unspecified; F43.10 Post-traumatic stress disorder, unspecified; F60.3 Borderline personality disorder; Z83.3 Family history of diabetes mellitus; Z82.49 Family history of ischemic heart disease and other diseases of the circulatory system; Z82.0 Family history of epilepsy and other diseases of the nervous system; Z80.9 Family history of malignant neoplasm, unspecified; Z32.02 Encounter for pregnancy test, result negative; Z20.822 Contact with and (suspected) exposure to COVID-19
CPT/HCPCS: 96374; 99285; 36415; 93005; 80053 ×2; 85025 ×2; 85610 ×2; 85730; 81025; 80306; 80143; 80320; 87635; 80179; G0378 ×3; C9113

== ENCOUNTER 2022-01-04 23:12 | Inpatient (IN) | payer OTHER, MEDICAID ==
[2022-01-04] MEDS ORDERED: MAG HYDROX/AL HYDROX/SIMETH 30 ML CUP PO PRN (23:53)
[2022-01-04] MEDS ORDERED: HALOPERIDOL LACTATE 5 MG/ML 1 ML VIAL IM PRN (23:53)
[2022-01-04] MEDS ORDERED: ACETAMINOPHEN TAB 325 MG TAB PO PRN (23:53)
[2022-01-04] MEDS ORDERED: haloperidoL 5 MG TAB PO PRN (23:54)
[2022-01-05] MEDS ORDERED: LORazepam 1 MG/0.5 ML VIAL IM PRN
[2022-01-05] MEDS: LORazepam 1 MG TAB PO PRN ×3 (01:35→17:03)
[2022-01-05] MEDS: ACETYLCYSTEINE 6,000 MG/30 ML VIAL PO SCH ×7 (04:57→22:00)
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
[2022-01-05] MEDS ORDERED: IBUPROFEN 400 MG TAB PO PRN (16:14)
--- NOTE | 2022-01-05 16:51 | P.CONS ---
History of Present Illness - Reason for Consult Consult date: 01/05/22 - History of Present Illness The patient is a 36-year-old female with a PMH of polysubstance abuse including methamphetamine, and heroin who presents to the emergency room after an intentional Tylenol overdose. The patient reports that she relapsed 5 days ago with both methamphetamines and heroin after being clean for several months. She reports that over the past few days her mental health has been deteriorating home and she has been contemplating suicide, due to which she proceeded to take 20 tablets of Tylenol extra strength yesterday evening. EKG in the emergency room revealed sinus rhythm at [address]/T-wave changes noted. The case was reportedly discussed by the ED physician with poison control who recommended oral N-acetylcysteine and continued monitoring of the patient. Evaluation was remarkable for WBC count of 15.0 with LFTs unremarkable and urine toxicology also negative. Patient was started on N-acetylcysteine protocol, but patient refused. Psychiatry was consulted and recommended inpatient psychiatry. She was transferred yesterday to the mental health unit. Patient was seen on the mental health unit. She reports the headache, bandlike, throbbing, 6 out of 10 in severity. She denies any photophobia or blurry vision. Denies any nausea or vomiting. She denies any lower extremity edema, fever or chills, cough, chest pain, shortness breath or palpitations, changes in urination or bowel habits. No changes in appetite or weight. She denies any dizziness, numbness/weakness/tingling of the extremities. General: non toxic, no distress, appears at stated age Derm: warm, dry Head: atraumatic, normocephalic, symmetric Eyes: EOMI, no lid lag, anicteric sclera Mouth: no lip lesion, mucus membranes moist Cardiovascular: S1S2 reg, no murmur, positive posterior tibial pulse bilateral, Lungs: CTA bilateral, no rhonchi, no rales , no accessory muscle use Abdominal: soft, nontender to palpation, no guarding, no appreciable organomegaly Ext: no gross muscle atrophy, no edema, no contractures Neuro: CN II-XI grossly intact, no focal neuro deficits Psych: Alert, oriented, appropriate affect #Intentional Tylenol overdose #Leukocytosis #Metabolic acidosis #Polysubstance abuse #Tension headache -Continue with N-acetylcysteine protocol, patient refusing -Repeat CBC and CMP tomorrow. -Advised on the importance of cessation -Toradol as needed for headache. Thank you for this consultation. Please call [facility] with additional questions of concerns. Past Medical History Past Medical History: No Reported History Additional Past Medical History / Comment(s): migraines History of Any Multi-Drug Resistant Organisms: None Reported Past Surgical History: Section Additional Past Surgical History / Comment(s): ovarian cyst removal Past Anesthesia/Blood Transfusion Reactions: No Reported Reaction Smoking Status: Former smoker - Past Family History Father Family Medical History: Blood Disorder, Cancer, Diabetes Mellitus, Hypertension Additional Family Medical History / Comment(s): type 1 diabetes, pancreatic cancer Mother Family Medical History: Diabetes Mellitus, Hypertension, Seizure Disorder Additional Family Medical History / Comment(s): type 2 Medications and Allergies Home Medications Medication Instructions Recorded Confirmed Type Acetylcysteine [Mucomyst] 6,000 mg PO Q4HR each 01/04/22 01/05/22 Rx Allergies Allergy/AdvReac Type Severity Reaction Status Date / Time haloperidol [From Haldol] Allergy Severe Swelling Verified 01/05/22 11:21 Physical Exam Vitals: Vital Signs Temp Pulse Resp BP Pulse Ox 01/05/22 08:00 98.1 F 98 16 125/65 97 01/05/22 01:14 97.1 F L 71 16 132/72 97 Intake and Output 01/05/22 01/05/22 01/05/22 06:59 14:59 22:59 Other: Weight 86.818 kg
[2022-01-05] MEDS: ETODOLAC 400 MG TAB PO PRN (18:56)
[2022-01-05] MEDS: OLANZapine 5 MG TAB PO SCH (21:16)
[2022-01-06] MEDS: ACETYLCYSTEINE 6,000 MG/30 ML VIAL PO SCH ×6 (04:54→20:42)
[2022-01-06] MEDS: OLANZapine 5 MG TAB PO SCH ×2 (08:16→20:03)
[2022-01-06] MEDS: LORazepam 1 MG TAB PO PRN ×2 (08:17→18:39)
[2022-01-06] MEDS: ETODOLAC 400 MG TAB PO PRN (09:42)
--- NOTE | 2022-01-06 09:54 | P.PN ---
Progress Note - Text Progress Note Date: 01/06/22 S&O: Patient was seen in rounds. She has been having headaches since morning. Her Motrin was changed to Toradol by general medical doctor after she had her H&P. She said she slept well last night and did not have any problems with Zyprexa. She slept well last night. Besides headache she does not have any complaint. She has been staying by herself most of the time and does not socialize with others often. Patient is lot calmer today and is not irritable or hostile like she was. But she said she has bad headache and is not feeling well. She does not show any psychomotor agitation or retardation. Her speech is spontaneous short relevant and goal-directed. Her mood is somewhat dull and affect is constricted in range today. She denies hallucinations delusional thinking current suicide and homicide thoughts. Her sensorium is clear. A&P: Continue Zyprexa 5 mg twice a day, therapy and supervision. Monitor her suicidality and general well-being.
[2022-01-06] MEDS: MAGNESIUM HYDROXIDE 2,400 MG/10 ML CUP PO PRN (18:39)
[2022-01-07] MEDS: ACETYLCYSTEINE 6,000 MG/30 ML VIAL PO SCH ×4 (07:50→20:03)
[2022-01-07] MEDS: OLANZapine 5 MG TAB PO SCH (07:52)
[2022-01-07] MEDS: LORazepam 1 MG TAB PO PRN ×2 (07:52→13:53)
--- NOTE | 2022-01-07 11:10 | P.PN ---
Progress Note - Text Progress Note Date: 01/07/22 S&O: Patient was seen in rounds. She is quite irritable and demanding using foul language today. She said she wished she didn't wake up today and had because she gets bad headaches, her Motrin when necessary was changed to Lodine by the doctor who had given her H&P. She says she can take it only once a day and it does not help her with the headache. She used foul language and asked why she cannot go back on Motrin. She was counseled and it was agreed to change her Lodine to Motrin. She also wants throat lozenges and the order was written. She did not want to hear anything about her possible migraine and need to see a specialist in migraine headaches. Again she used very foul language in that high-pitched voice stating that she doesn't need to talk about any of those things and is worried only about her mental health issues now. She does not want to attend the groups since she said it is useless and she does not want to talk about gnosticism or other things that are discussed in the groups. This is a right ambulatory female with good hygiene. Her hair is well groomed and she is wearing clean clothes. She is also drinking water and munching on the ice. She does not show any psychomotor agitation or retardation. Her speech is spontaneous and goal-directed. She often uses foul language and is not cooperative with proper examination. Mood is angry and affect is somewhat increased in intensity. No evidence of hallucinations, delusional thinking, suicide and homicide risk. She has good hygiene and she wants lot of things to be done for her which is on like of a person who wants to kill herself. Her sensorium appears to be clear. A&P: Increase Zyprexa to 10 mg twice a day per her request, change Lodine to Motrin when necessary and Cepacol lozenges when necessary for throat/cough. Continue supervision and therapies.
[2022-01-07] MEDS: IBUPROFEN 400 MG TAB PO PRN (13:53)
[2022-01-07] MEDS: OLANZapine 10 MG TAB PO SCH (20:04)
[2022-01-08] MEDS: ACETYLCYSTEINE 6,000 MG/30 ML VIAL PO SCH ×6 (01:10→23:57)
[2022-01-08] MEDS: LORazepam 1 MG TAB PO PRN ×3 (08:20→23:18)
[2022-01-08] MEDS: OLANZapine 10 MG TAB PO SCH ×2 (08:20→20:03)
[2022-01-08] MEDS: BENZOCAINE/MENTHOL LOZENG 1 EACH LOZENGE MUCOUS MEM PRN (10:00)
[2022-01-08] MEDS: IBUPROFEN 400 MG TAB PO PRN (20:04)
[2022-01-08] MEDS ORDERED: PRAZOSIN 1 MG CAP PO SCH (21:00)
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
[2022-01-09] MEDS: ACETYLCYSTEINE 6,000 MG/30 ML VIAL PO SCH (01:19)
[2022-01-09] MEDS: buPROPion XL 150 MG TAB.ER.24H PO SCH (08:44)
[2022-01-09] MEDS: LORazepam 1 MG TAB PO PRN ×2 (08:45→17:27)
[2022-01-09] MEDS: OLANZapine 10 MG TAB PO SCH ×2 (08:45→20:08)
[2022-01-09] MEDS: BENZOCAINE/MENTHOL LOZENG 1 EACH LOZENGE MUCOUS MEM PRN ×2 (09:10→21:09)
[2022-01-09] MEDS: IBUPROFEN 400 MG TAB PO PRN (17:27)
[2022-01-09] MEDS ORDERED: PRAZOSIN 1 MG CAP PO SCH (21:00)
--- NOTE | 2022-01-09 22:12 | P.PN ---
Progress Note - Text Progress Note Date: 01/09/22 Interval history: Patient was seen isolating to her room today and was directable and agreeable to speak with commercial lines underwriter. She continues to report depressed mood that she rates as a "5/10". She continues to endorse suicidal ideation but denies plan. She denies homicidal ideation, intent or plan. Denies any auditory or visual hallucinations. She reports nightmares decreased in intensity last night after starting Prazosin 1 mg QHS last night and agrees to increase to 2 mg for to night. Patient denies any side effects from the medications and has been compliant with meds. Mental status exam: General Appearance: Patient appears to be stated age, is dressed in casual attire. Behavior: No agitated behavior. Cooperative. Good eye contact. Speech: Patient's speech is fluent and non-pressured. Mood/Affect: Mood is depressed, affect is congruent and constricted. Suicidality/Homicidality: Patient endorses suicidal ideation without plan, and denies homicidal ideation, intent or plan. Perceptions: Patient denies any auditory or visual hallucinations. Though content/process: There is no evidence of any delusional thought content and thought process is linear and goal-directed. Memory and concentration: AOX3, grossly intact for the purposes of this session Judgment and insight: improving mildly Assessment/Plan: Continue with current diagnosis. Patient continues to meet criteria for inpatient psychiatric admission for symptom stabilization and safety. Increase Prazosin to 2 mg QHS for nightmares. Monitor vital signs. Continue other medications at current dosages. Monitor for medication compliance and for any psychotropic medication side effects. Will continue to monitor ongoing response to treatment. Encouraged participation in milieu.
[2022-01-10] MEDS: BENZOCAINE/MENTHOL LOZENG 1 EACH LOZENGE MUCOUS MEM PRN ×2 (09:03→21:37)
[2022-01-10] MEDS: IBUPROFEN 400 MG TAB PO PRN ×2 (09:04→15:13)
[2022-01-10] MEDS: OLANZapine 10 MG TAB PO SCH ×2 (09:04→20:16)
[2022-01-10] MEDS: buPROPion XL 150 MG TAB.ER.24H PO SCH (09:04)
[2022-01-10] MEDS: LORazepam 1 MG TAB PO PRN ×2 (09:04→20:16)
[2022-01-10] MEDS ORDERED: cloNIDine HCL 0.1 MG TAB PO STA (09:30)
--- NOTE | 2022-01-10 10:58 | P.PN ---
Progress Note - Text Progress Note Date: 01/10/22 Interval History: Patient was seen wandering the hallways and was directable and agreeable to speak with commercial insurance underwriter in the office. Currently, the patient is reporting that if she were to go home, that she would likely commit suicide. She reports multiple attempts at suicide and most recently attempted suicide last week by overdosing on various drugs. She expresses that she is feeling extremely anxious and stressed out and that she is in a precarious position in regards to her mental health. She reports that if she was to go home and explains another stressor, she is likely to overdose on drugs. The patient is denying any homicidal ideation, intention, and/or plan. Patient reports no auditory or visual hallucinations. She continues to report elevated anxiety. She is in agreement to transitioning from prazosin to clonidine to help address this. Mental Status Exam: General Appearance: Patient appears to be stated age is alert, directable, and cooperative. Behavior: Patient displays elevated psychomotor activity. Eye contact is appropriate. Speech: Patient's speech is fluent and nonpressured. Mood/Affect: Mood is "anxious and depressed." affect is somewhat dysphoric but with appropriate range. Suicidality/Homicidality: Patient endorses suicidal ideation with a plan however is denying any homicidal ideation. Perceptions: Patient denies any visual hallucinations and denies any auditory hallucinations Though content/process: There is no evidence of any delusional thought content and thought process is linear and goal-directed. Memory and concentration: AOX3, grossly intact for the purposes of this session Judgment and insight: Improving mildly Vital Signs Temp 97.9 F 01/10/22 09:00 Pulse 110 H 01/10/22 10:35 Resp 16 01/10/22 10:35 BP 124/89 01/10/22 10:35 Pulse Ox 98 01/10/22 09:00 FiO2 Intake & Output 01/09/22 01/10/22 01/10/22 18:59 06:59 18:59 Weight 87.4 kg Assessment Major depressive disorder Borderline personality disorder Stimulant use disorder Opiate use disorder Plan: -Patient continues to meet criteria for inpatient psychiatric admission for symptom stabilization and safety. Patient has signed adult voluntary form and medication consent and was placed in patient's chart. -Medications: Continue Wellbutrin XL 150 mg by mouth daily for depression Discontinue prazosin insert clonidine 0.1 mg by mouth twice a day for substance abuse Continue Zyprexa 10 mg by mouth twice a day for mood stabilization -When necessary Ativan and Haldol for agitation/aggression. -SW on board for discharge planning. Encouraged the patient to participate in milieu.
[2022-01-10] MEDS: cloNIDine HCL 0.1 MG TAB PO SCH (20:16)
[2022-01-11] MEDS: BENZOCAINE/MENTHOL LOZENG 1 EACH LOZENGE MUCOUS MEM PRN (07:08)
[2022-01-11] MEDS: cloNIDine HCL 0.1 MG TAB PO SCH ×2 (07:52→20:31)
[2022-01-11] MEDS: LORazepam 1 MG TAB PO PRN ×2 (07:52→15:39)
[2022-01-11] MEDS: buPROPion XL 150 MG TAB.ER.24H PO SCH (07:52)
[2022-01-11] MEDS: OLANZapine 10 MG TAB PO SCH ×2 (07:52→20:31)
--- NOTE | 2022-01-11 11:39 | P.PN ---
Progress Note - Text Progress Note Date: 01/11/22 Interval History: Patient was seen wandering the hallways and was directable and agreeable to speak with process description writer in her room. Currently, the patient is not reporting any suicidal or homicidal ideation, intention, and/or plan. The patient reports that she is feeling better today. She reports that clonidine has been beneficial in managing her anxiety symptoms. She is currently denying any auditory or visual hallucinations. She denies any paranoia or other delusions. She is more future and goal oriented and reports that she has had significant help by social work in order to deal with her ongoing stressors in the outpatient setting. She remains future and goal oriented today. Mental Status Exam: General Appearance: Patient appears to be stated age is alert, directable, and cooperative. Behavior: Patient displays elevated psychomotor activity. Eye contact is appropriate. Speech: Patient's speech is fluent and nonpressured. Mood/Affect: Mood is "feeling better." affect is euthymic today. Appropriate range. Suicidality/Homicidality: Patient is currently denying any suicidal or homicidal ideation. Perceptions: Patient denies any visual hallucinations and denies any auditory hallucinations Though content/process: There is no evidence of any delusional thought content and thought process is linear and goal-directed. Memory and concentration: AOX3, grossly intact for the purposes of this session Judgment and insight: Improving mildly Vital Signs Temp 98.7 F 01/11/22 05:25 Pulse 91 01/11/22 07:51 Resp 17 01/11/22 05:25 BP 124/83 01/11/22 07:51 Pulse Ox 98 01/11/22 05:25 FiO2 Assessment Major depressive disorder Borderline personality disorder Stimulant use disorder Opiate use disorder Plan: -Patient continues to meet criteria for inpatient psychiatric admission for sy mptom stabilization and safety. Patient has signed adult voluntary form and medication consent and was placed in patient's chart. -Medications: Increase Wellbutrin XL to 300 mg by mouth daily for depression Continue clonidine 0.1 mg by mouth twice a day for substance abuse Continue Zyprexa 10 mg by mouth twice a day for mood stabilization -When necessary Ativan and Haldol for agitation/aggression. -SW on board for discharge planning. Encouraged the patient to participate in milieu.
[2022-01-11] MEDS: IBUPROFEN 400 MG TAB PO PRN ×2 (11:52→15:39)
[2022-01-11] MEDS: BENZOCAINE 20 % GEL 11.9 GM TUBE MM PRN (16:26)
[2022-01-11] MEDS: MAGNESIUM HYDROXIDE 2,400 MG/10 ML CUP PO PRN (20:40)
[2022-01-12] MEDS: BENZOCAINE 20 % GEL 11.9 GM TUBE MM PRN (02:47)
[2022-01-12] MEDS: IBUPROFEN 400 MG TAB PO PRN (05:00)
[2022-01-12 06:45] VITALS: BP 103/69; PULSE 68; RESP 16; TEMP 97.7
[2022-01-12] MEDS: OLANZapine 10 MG TAB PO SCH (07:50)
[2022-01-12] MEDS: cloNIDine HCL 0.1 MG TAB PO SCH ×2 (07:50→09:23)
[2022-01-12] MEDS ORDERED: buPROPion XL 300 MG TAB.ER.24H PO SCH (09:00)
--- NOTE | 2022-01-12 11:16 | P.DS ---
Providers Date of admission: 01/05/22 00:41 Expected date of discharge: 01/12/22 Attending physician: Blayne Layton MD Consults: 01/04/22 23:53 Consult Physician Routine Consulting Provider: [facility] Consult Reason/Comments: H&P and medical Do you want consulting provider notified?: Yes Primary care physician: Stated None - Discharge Diagnosis(es) (1) Major depressive disorder Current Visit: Yes Status: Acute Priority: High (2) Borderline personality disorder Current Visit: Yes Status: Chronic Priority: Medium (3) Opiate abuse, episodic Current Visit: Yes Status: Chronic Priority: Medium (4) Methamphetamine abuse Current Visit: Yes Status: Chronic Priority: Medium (5) PTSD (post-traumatic stress disorder) Current Visit: Yes Status: Chronic Priority: Medium Hospital Course: Admission HPI: Initial psychiatric evaluation was completed by Dr. Dorman on 01/05/2022 who wrote: "Ayleen Christina is a 36 years old white female living in [facility]. She was admitted as a transfer from medical unit since she had overdosed on 20 Tylenol's prior to her going to medical unit. History of present illness: Patient is quite angry and could not or refused to provide good information by telling the questions and information asked about. She said she had overdosed on Tylenol without any causes except that she was not feeling well. She also said she had done some harrowing and met a few days ago but her UDS was negative. She said she gets emotional spontaneously or sometimes on trigger for most of her life. She said she had overdosed and to 15 times and has scratched herself as an adult. She used to cut herself as a teenager. She said she has anger issues. She throws things or breaks things when she is angry. 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 She denies any other legal problems. She said her mood goes up and down quite easily. She said when she is up admitted last for about 2 weeks when she is down admitted last for 1-2 weeks. She takes care of these mood changes by abusing street drugs which is primarily methamphetamine and sometimes crack. She denies hallucinations. Previous psychiatric history/drug and alcohol abuse: She said she was in this hospital 3 or 4 times since age 18. He was in several hospitals when she was growing up and she had taken several medications all her life and none of them actually had helped her. 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 She has been snorting methamphetamine since age 18 she said she doesn't snort on a daily basis but does sit on here and there basis her last use was 1 week ago. She said she also does heroine and crack here and there. She smokes pot once in a while. She said she drinks alcohol socially and had 4 shots 4 days ago, she denies any DUI or PI. She denies any problem following use of alcohol. Previous medical history she said she is ALLERGIC to Triaminic and Haldol which gave her muscle spasms. Her menstrual periods are regular and last one was 2- 1/2 weeks ago. She has 4 children, was 12 times, had 2 elective abortions and 6 spontaneous abortions. She had D&C and 3 C-sections. She denies any ongoing physical problems. She has 17 tattoos on her body." Hospital course: Upon admission to the unit patient was initially labile and irritable. Patient was however directable and agreeable to commence treatment. Patient got along well with other patients on the unit and followed unit protocol. Patient was compliant with the medications and denied any side effects throughout hospital course. Patient was started on Zyprexa for mood stabilization and anger management. Patient spoke of her stressors and engaged in therapy both group and individual. Patient was also seen by medical team for history and physical exam. Over the course of the hospitalization and after further evaluation, working diagnosis of Kenneth. depressive disorder, borderline personality disorder, stimulant use disorder, and opiate use disorder were made. The patient was started on prazosin for PTSD like symptoms and Wellbutrin was added to her regimen to address depression. The patient was transitioned from prazosin to clonidine in order to better address her symptoms of anxiety and substance withdrawal. On this regimen, the patient displayed significant improvement in regards her target symptoms of depression, anxiety, and suicidal ideation. She became more future and goal oriented. The patient expressed a desire to live for herself and for her family. On the day of discharge, the patient is not reporting any suicidal or homicidal ideation, intention, and/or plan. She is not reporting any auditory or visual hallucinations. She reports no paranoia or other delusions. She has been adherent with her medication and is not endorsing any significant side effects. The patient denies any medical issues or concerns and reports no chest pain, shortness of breath, palpitations, or headache. She denies any access to firearms or other weapons. The patient does have significant history of substance abuse however was counseled at great length on abstaining from all substances including alcohol, tobacco, marijuana, and illicit drugs. The patient was counseled at length and points medication insurance appropriate outpatient follow-up. Prior to discharge, family meeting was arranged by social work administrator to answer my questions and ensure safety. Mental status exam: General Appearance: Patient appears to be stated age is alert, pleasant, and cooperative. Patient is in no acute distress and has fair hygiene and grooming Behavior: Patient is calmly seated without any agitated behavior. Speech: Patient's speech is fluent and nonpressured. Mood/Affect: Patient reports their mood is "much better", affect is congruent and euthymic to bright. Suicidality/Homicidality: Patient denies having any suicidal or homicidal ideation intent or plan. Perceptions: Patient denies any auditory or visual hallucinations. Though content/process: There is no evidence of any delusional thought content and thought process is linear and goal-directed. Future oriented. Memory and concentration: AOX3, grossly intact for the purposes of this session. Can spell "WORLD" backwards correctly. Judgment and insight: Improved with guarded prognosis Impression: Major depressive disorder PTSD Borderline personality disorder Stimulant use disorder Opiate use disorder Plan: -Continue with discharge today as patient has improved and stabilized psychiatrically and is not currently an imminent threat to herself and/or others. Patient will remain at chronically elevated risk for harm to self and/or others due to her impulsivity and polysubstance abuse. -Continue medications: Catapres 0.1 mg by mouth twice a day for PTSD/substance withdrawal Wellbutrin XL 300 mg by mouth daily for depression Zyprexa 10 mg by mouth twice a day for mood stabilization -Patient was counseled on the need for medication compliance and appropriate follow-up at mental health and also primary care for medical issues. Patient verbalized understanding and agreed. -Social work to arrange for and conduct family meeting to ensure safety upon discharge and answer any questions/concerns. Social work also to arrange for patients follow up appointments with [facility] for psychiatric care along with follow up with primary care provider. -Patient counseled on abstaining from recreational drugs and marijuana and alcohol. Was informed/educated on the adverse effects on their physical and mental health. Patient verbally agreed and understood. Patient was offered substance abuse treatment however declined at this time. -Patient was instructed to return to the hospital or seek immediate medical care if their psychiatric or medical symptoms do worsen or reoccur. -Psychoeducation and supportive therapy provided to patient. Risks and benefits of pharmacological treatment versus the risks and benefits of nontreatment weight and discussed. Informed consent discussion held. Common side effects of psychotropics discussed such as, but not limited to headache, GI disturbance, sexual dysfunction, movement disorders, sedation, and orthostatic hypotension. Life threatening and blackbox warnings of prescribed medications also discussed. Potential risks of operating a vehicle or heavy machinery discussed with patient at length. Advised on importance of compliance and a reliable and responsible manner. Patient advised to review FDA consumer labeling of all medications prior to taking. Patient verbalized understanding of potential risks, and agrees with current treatment plan. Patient advised to medically contact physician/emergency personnel if any acute changes in condition occur. Vital Signs Temp 97.7 F 01/12/22 06:44 Pulse 68 01/12/22 06:44 Resp 16 01/12/22 06:44 BP 103/69 01/12/22 06:44 Pulse Ox 98 01/11/22 05:25 FiO2 Allergies Allergy/AdvReac Type Severity Reaction Status Date / Time haloperidol [From Haldol] Allergy Severe Swelling Verified 01/05/22 11:21 Patient Condition at Discharge: Stable Plan - Discharge Summary Discharge Rx Participant: Yes New Discharge Prescriptions: New cloNIDine HCL [Catapres] 0.1 mg PO BID 30 Days tab buPROPion XL [Wellbutrin XL] 300 mg PO DAILY 30 Days tab Benzocaine 20 % Gel [Orajel] 1 applic MM BID PRN 7 Days each PRN Reason: Pain OLANZapine [ZyPREXA] 10 mg PO BID 30 Days tab Continue Acetylcysteine [Mucomyst] 6,000 mg PO Q4HR each Discharge Medication List Acetylcysteine [Mucomyst] 6,000 mg PO Q4HR each 01/04/22 [Rx] Benzocaine 20 % Gel [Orajel] 1 applic MM BID PRN 7 Days each 01/12/22 [Rx] OLANZapine [ZyPREXA] 10 mg PO BID 30 Days tab 01/12/22 [Rx] buPROPion XL [Wellbutrin XL] 300 mg PO DAILY 30 Days tab 01/12/22 [Rx] cloNIDine HCL [Catapres] 0.1 mg PO BID 30 Days tab 01/12/22 [Rx] Follow up Appointment(s)/Referral(s): [facility] [Outside] - 01/18/22 2:00 pm (with Tita) Activity/Diet/Wound Care/Special Instructions: Avoid the use of street drugs and alcohol. Take all prescriptions as prescribed. When you are in need of refills on your medications, please contact your medical provider and/or outpatient psychiatrist to have this done. Please go to scheduled outpatient appointment for aftercare treatment. If symptoms return or become worse, call the crisis line at and/or go to the nearest emergency room for evaluation. Discharge Disposition: HOME SELF-CARE
== END 2022-01-12 14:01 | disposition home or self-care (01) | DRG 881 ==
LOC: 3MHU 01-05 00:41
PROVIDERS: ADMIT Psychiatry & Neurology Psychiatry; ATTEND Psychiatry & Neurology Psychiatry
DX: F32.9 Major depressive disorder, single episode, unspecified (principal); F60.3 Borderline personality disorder; F11.10 Opioid abuse, uncomplicated; F15.90 Other stimulant use, unspecified, uncomplicated; F43.10 Post-traumatic stress disorder, unspecified; T39.1X2A Poisoning by 4-Aminophenol derivatives, intentional self-harm, initial encounter; Z63.72 Alcoholism and drug addiction in family; Z79.899 Other long term (current) drug therapy; Z81.1 Family history of alcohol abuse and dependence; Z81.8 Family history of other mental and behavioral disorders; Z87.891 Personal history of nicotine dependence; Z91.199 Patient's noncompliance with other medical treatment and regimen due to unspecified reason; Z91.410 Personal history of adult physical and sexual abuse

== ENCOUNTER 2022-07-03 15:55 | Inpatient (IN) | payer OTHER, MEDICAID ==
--- NOTE | 2022-07-03 16:34 | ED ---
General Adult HPI - General Chief complaint: Psychiatric Symptoms Stated complaint: Mental Health Time Seen by Provider: 07/03/22 16:14 Source: patient, RN notes reviewed Mode of arrival: ambulatory Limitations: no limitations - History of Present Illness Initial comments: 37-year-old female with no significant past medical history presents to the emergency department with suicidal ideation. Patient reports worsening suicidal ideation the last couple of days. She reports that she does not have an active plan in which she would overdose on "taking a lot of pills. "She reports that she has an appointment with [facility] on Monday07/08/2022, however does not believe she is safe at home until then. She denies current psychiatric medication use. She denies recent alcohol or illicit drug use. She denies any homicidal ideation. She denies any visual or auditory hallucinations. She is complaining of increased urinary frequency that started yesterday. - Related Data Home Medications Medication Instructions Recorded Confirmed No Known Home Medications 07/03/22 07/03/22 Allergies Allergy/AdvReac Type Severity Reaction Status Date / Time haloperidol [From Haldol] Allergy Severe Facial & Verified 07/03/22 19:05 Tongue Swelling/Lethargic Review of Systems ROS Statement: Those systems with pertinent positive or pertinent negative responses have been documented in the HPI. ROS Other: All systems not noted in ROS Statement are negative. Past Medical History Past Medical History: No Reported History Additional Past Medical History / Comment(s): migraines History of Any Multi-Drug Resistant Organisms: None Reported Past Surgical History: Section Additional Past Surgical History / Comment(s): ovarian cyst removal Past Anesthesia/Blood Transfusion Reactions: No Reported Reaction Past Psychological History: Bipolar, Depression, PTSD Smoking Status: Former smoker Past Alcohol Use History: None Reported Past Drug Use History: Marijuana - Past Family History Father Family Medical History: Blood Disorder, Cancer, Diabetes Mellitus, Hypertension Additional Family Medical History / Comment(s): type 1 diabetes, pancreatic cancer Mother Family Medical History: Diabetes Mellitus, Hypertension, Seizure Disorder Additional Family Medical History / Comment(s): type 2 General Exam - General Exam Comments Initial Comments: General: Alert, in no acute distress Head: atraumatic normocephalic. Eyes PERRL, EOMI intact, mucous membranes moist Respiratory: Lungs clear to auscultation bilaterally Cardiovascular: heart rate regular rate and rhythm Abdominal: Soft without guarding or rebound Extremities: Normal inspection with full range of motion and normal capillary refill Neuroogic: alert and oriented 3, CN II-XII intact, able to ambulate with steady gait Skin: warm dry and intact with normal color Limitations: no limitations Course Vital Signs 07/03/22 16:04 Temperature 98.1 F Pulse Rate 86 Respiratory 18 Rate Blood Pressure 140/88 O2 Sat by Pulse 99 Oximetry - Reevaluation(s) Reevaluation #1: 07/03/22 17:20 JESSY Rodriguez RN in to evaluate the patient. Reevaluation #2: 07/03/22 18:22 Case discussed with Jennifer RICHTER who believes the patient needs inpatient psychiatric management. Medical Decision Making - Medical Decision Making Was pt. sent in by a medical professional or institution (ABDOUL Denise, DIGITAL PERFORMANCE ANALYST, urgent care, hospital, or fpc...) When possible be specific @ -[No] Did you speak to anyone other than the patient for history (EMS, parent, family, police, friend...)? What history was obtained from this source @ -[No] Did you review nursing and triage notes (agree or disagree)? Why? @ -[I reviewed and agree with nursing and triage notes] Were old charts reviewed (outside hosp., previous admission, EMS record, old EKG, old radiological studies, urgent care reports/EKG's, fpc records)? Report findings @ -[No old charts were reviewed] Differential Diagnosis (chest pain, altered mental status, abdominal pain women, abdominal pain men, vaginal bleeding, weakness, fever, dyspnea, syncope, headache, dizziness, GI bleed, back pain, seizure, CVA, palpatations, mental health, musculoskeletal)? @ -[not applicable] EKG interpreted by me (3pts min.). @ -[As above] X-rays interpreted by me (1pt min.). @ -[None done] CT interpreted by me (1pt min.). @ -[None done] U/S interpreted by me (1pt. min.). @ -[None done] What testing was considered but not performed or refused? (CT, X-rays, U/S, labs)? Why? @ -[None] What meds were considered but not given or refused? Why? @ -[None] Did you discuss the management of the patient with other professionals (professionals i.e. , PA, DIGITAL PERFORMANCE ANALYST, lab, RT, psych nurse, social science professor, chemical analytical sampler, teacher, chief customer officer, machine adjuster leader case trim)? Give summary @ -[No] Was smoking cessation discussed for >3mins.? @ -[No] Was critical care preformed (if so, how long)? @ -[No] Were there social determinants of health that impacted care today? How? (Homelessness, low income, unemployed, alcoholism, drug addiction, transportation, low edu. Level, literacy, decrease access to med. care, penitentiary, rehab)? @ -[No] Was there de-escalation of care discussed even if they declined (Discuss DNR or withdrawal of care, Hospice)? DNR status @ -[No] What co-morbidities impacted this encounter? (DM, HTN, Smoking, COPD, CAD, Cancer, CVA, ARF, Chemo, Hep., AIDS, mental health diagnosis, sleep apnea, morbid obesity)? @ -[None] Was patient admitted / discharged? Hospital course, mention meds given and route, prescriptions, significant lab abnormalities, going to OR and other pertinent info. @ -Admission. This is a 37-year-old female who presents the emergency department with a chief complaint of increased suicidal ideation. Patient was seen and evaluated in the ED. Physical exam essentially unremarkable heart rate regular rate and rhythm, lungs clear to auscultation bilaterally abdomen is soft and nontender. Patient had urinalysis which is consistent with UTI. She'll be started on Keflex. She was evaluated by Mary wang, EPS who believes the patient needs inpatient psychiatric admission. Undiagnosed new problem with uncertain prognosis? @ -[No] Drug Therapy requiring intensive monitoring for toxicity (Heparin, Nitro, Insulin, Cardizem)? @ -[No] Were any procedures done? @ -[No] Diagnosis/symptom? @ -suicidal ideation Acute, or Chronic, or Acute on Chronic? @ -acute Uncomplicated (without systemic symptoms) or Complicated (systemic symptoms)? @ -uncomplicated Side effects of treatment? @ -[No] Exacerbation, Progression, or Severe Exacerbation? @ -[No] Poses a threat to life or bodily function? How? (Chest pain, [place], [place], pneumonia, PE, COPD, DKA, ARF, appy, cholecystitis, CVA, Diverticulitis, Homicidal, Suicidal, threat to staff... and all critical care pts) @ -severe likelihood - Lab Data Result diagrams: 07/03/22 18:42 07/03/22 18:42 Lab Results 07/03/22 07/03/22 07/03/22 Range/Units 16:39 18:42 18:42 WBC 15.1 H (3.8-10.6) k/uL RBC 4.94 (3.80-5.40) m/uL Hgb 12.8 (11.4-16.0) gm/dL Hct 40.5 (34.0-46.0) % MCV 82.0 (80.0-100.0) fL MCH 26.0 (25.0-35.0) pg MCHC 31.7 (31.0-37.0) g/dL RDW 14.3 (11.5-15.5) % Plt Count 285 (150-450) k/uL MPV 9.9 Neutrophils % 67 % Lymphocytes % 19 % Monocytes % 7 % Eosinophils % 2 % Basophils % 0 % Neutrophils # 10.1 H (1.3-7.7) k/uL Lymphocytes # 2.8 (1.0-4.8) k/uL Monocytes # 1.1 H (0-1.0) k/uL Eosinophils # 0.3 (0-0.7) k/uL Basophils # 0.1 (0-0.2) k/uL Sodium (137-145) mmol/L Potassium (3.5-5.1) mmol/L Chloride (98-107) mmol/L Carbon Dioxide (22-30) mmol/L Anion Gap mmol/L BUN (7-17) mg/dL Creatinine (0.52-1.04) mg/dL Est GFR (CKD-EPI)AfAm (>60 ml/min/1.73 sqM) Est GFR (CKD-EPI)NonAf (>60 ml/min/1.73 sqM) Glucose (74-99) mg/dL Calcium (8.4-10.2) mg/dL Total Bilirubin (0.2-1.3) mg/dL AST (14-36) U/L ALT (4-34) U/L Alkaline Phosphatase (38-126) U/L Total Protein (6.3-8.2) g/dL Albumin (3.5-5.0) g/dL Urine Color Yellow Urine Appearance Turbid H (Clear) Urine pH 5.5 (5.0-8.0) Ur Specific [place] 1.024 (1.001-1.035) Urine Protein 1+ H (Negative) Urine Glucose (UA) Negative (Negative) Urine Ketones Negative (Negative) Urine Blood Small H (Negative) Urine Nitrite Positive H (Negative) Urine Bilirubin Negative (Negative) Urine Urobilinogen <2.0 (<2.0) mg/dL Ur Leukocyte Esterase Large H (Negative) Urine RBC 98 H (0-5) /hpf Urine WBC >182 H (0-5) /hpf Ur Squamous Epith Cells 52 H (0-4) /hpf Urine Bacteria Many H (None) /hpf Urine Mucus Occasional H (None) /hpf Urine HCG, Qual Not Detected (Not Detectd) Urine Opiates Screen Not Detected (NotDetected) Ur Oxycodone Screen Not Detected (NotDetected) Urine Methadone Screen Not Detected (NotDetected) Ur Propoxyphene Screen Not Detected (NotDetected) Ur Barbiturates Screen Not Detected (NotDetected) U Tricyclic Antidepress Not Detected (NotDetected) Ur Phencyclidine Scrn Not Detected (NotDetected) Ur Amphetamines Screen Not Detected (NotDetected) U Methamphetamines Scrn Not Detected (NotDetected) U Benzodiazepines Scrn Not Detected (NotDetected) Urine Cocaine Screen Not Detected (NotDetected) U Marijuana (THC) Screen Detected H (NotDetected) Influenza Type A (PCR) (Not Detectd) Influenza Type B (PCR) (Not Detectd) RSV (PCR) (Not Detectd) SARS-CoV-2 (PCR) (Not Detectd) 07/03/22 07/03/22 Range/Units 18:42 19:51 WBC (3.8-10.6) k/uL RBC (3.80-5.40) m/uL Hgb (11.4-16.0) gm/dL Hct (34.0-46.0) % MCV (80.0-100.0) fL MCH (25.0-35.0) pg MCHC (31.0-37.0) g/dL RDW (11.5-15.5) % Plt Count (150-450) k/uL MPV Neutrophils % % Lymphocytes % % Monocytes % % Eosinophils % % Basophils % % Neutrophils # (1.3-7.7) k/uL Lymphocytes # (1.0-4.8) k/uL Monocytes # (0-1.0) k/uL Eosinophils # (0-0.7) k/uL Basophils # (0-0.2) k/uL Sodium 138 (137-145) mmol/L Potassium 4.0 (3.5-5.1) mmol/L Chloride 102 (98-107) mmol/L Carbon Dioxide 24 (22-30) mmol/L Anion Gap 12 mmol/L BUN 12 (7-17) mg/dL Creatinine 0.76 (0.52-1.04) mg/dL Est GFR (CKD-EPI)AfAm >90 (>60 ml/min/1.73 sqM) Est GFR (CKD-EPI)NonAf >90 (>60 ml/min/1.73 sqM) Glucose 105 H (74-99) mg/dL Calcium 9.1 (8.4-10.2) mg/dL Total Bilirubin 0.6 (0.2-1.3) mg/dL AST 18 (14-36) U/L ALT 14 (4-34) U/L Alkaline Phosphatase 46 (38-126) U/L Total Protein 7.5 (6.3-8.2) g/dL Albumin 4.2 (3.5-5.0) g/dL Urine Color Urine Appearance (Clear) Urine pH (5.0-8.0) Ur Specific [place] (1.001-1.035) Urine Protein (Negative) Urine Glucose (UA) (Negative) Urine Ketones (Negative) Urine Blood (Negative) Urine Nitrite (Negative) Urine Bilirubin (Negative) Urine Urobilinogen (<2.0) mg/dL Ur Leukocyte Esterase (Negative) Urine RBC (0-5) /hpf Urine WBC (0-5) /hpf Ur Squamous Epith Cells (0-4) /hpf Urine Bacteria (None) /hpf Urine Mucus (None) /hpf Urine HCG, Qual (Not Detectd) Urine Opiates Screen (NotDetected) Ur Oxycodone Screen (NotDetected) Urine Methadone Screen (NotDetected) Ur Propoxyphene Screen (NotDetected) Ur Barbiturates Screen (NotDetected) U Tricyclic Antidepress (NotDetected) Ur Phencyclidine Scrn (NotDetected) Ur Amphetamines Screen (NotDetected) U Methamphetamines Scrn (NotDetected) U Benzodiazepines Scrn (NotDetected) Urine Cocaine Screen (NotDetected) U Marijuana (THC) Screen (NotDetected) Influenza Type A (PCR) Not Detected (Not Detectd) Influenza Type B (PCR) Not Detected (Not Detectd) RSV (PCR) Not Detected (Not Detectd) SARS-CoV-2 (PCR) Not Detected (Not Detectd) Disposition Clinical Impression: Depression, Suicidal ideation Disposition: ADMITTED IP TO THIS HOSP Condition: Fair Time of Disposition: 03:02
[2022-07-03 16:50] LABS: Appearance,Urine Turbid (Clear); Bacteria,Urine Many /hpf; Bilirubin,Urine Negative (Negative); Blood,Urine Small (Negative); Color,Urine Yellow; Glucose,Urine (UA) Negative (Negative); Ketones,Urine Negative (Negative); Leukocyte Esterase,Urine Large (Negative); Mucus,Urine Occasional /hpf; Nitrite,Urine Positive (Negative); PH, Urine 5.5 (5.0-8.0); Protein,Urine 1+ (Negative); RBC,Urine 98 /hpf (0-5); Specific Gravity,Urine 1.024 (1.001-1.035); Squamous Epithelial Cell,Urine 52 /hpf (0-4); Urobilinogen,Urine <2.0 mg/dL (<2.0); WBC,Urine >182 /hpf (0-5)
[2022-07-03 17:20] LABS: Amphetamine Screen,Urine Not Detected (NotDetected); Barbiturate Screen,Urine Not Detected (NotDetected); Benzodiazepines Screen,Urine Not Detected (NotDetected); Cocaine Screen,Urine Not Detected (NotDetected); Methadone Screen, Urine Not Detected (NotDetected); Opiate Screen,Urine Not Detected (NotDetected); Oxycodone Screen, Urine Not Detected (NotDetected); Phencyclidine Screen,Urine Not Detected (NotDetected); Tricyclic Antidepressant,Urine Not Detected (NotDetected); Urn Cannabinoid Scrn Detected (NotDetected)
[2022-07-03 18:59] LABS: Basophils # (A) 0.1 k/uL (0-0.2); Basophils % (A) 0 %; Eosinophils # (A) 0.3 k/uL (0-0.7); Eosinophils % (A) 2 %; HCT 40.5 % (34.0-46.0); HGB 12.8 gm/dL (11.4-16.0); Lymphocytes # (A) 2.8 k/uL (1.0-4.8); Lymphocytes % (A) 19 %; MCHC 31.7 g/dL (31.0-37.0); Mean Platelet Volume 9.9; Monocytes # (A) 1.1 k/uL (0-1.0); Monocytes % (A) 7 %; Neutrophils # (A) 10.1 k/uL (1.3-7.7); Neutrophils % (A) 67 %; Platelet Count 285 k/uL (150-450); RBC 4.94 m/uL (3.80-5.40); RDW 14.3 % (11.5-15.5); WBC 15.1 k/uL (3.8-10.6)
[2022-07-03 19:11] LABS: ALT 14 U/L (4-34); AST 18 U/L (14-36); African American GFR (CKD) >90 (>60 ml/min/1.73 sqM); Albumin 4.2 g/dL (3.5-5.0); Alkaline Phosphatase 46 U/L (38-126); Anion Gap 12 mmol/L; Blood Urea Nitrogen 12 mg/dL (7-17); Calcium 9.1 mg/dL (8.4-10.2); Carbon Dioxide 24 mmol/L (22-30); Chloride 102 mmol/L (98-107); Glucose 105 mg/dL (74-99); Non-African American GFR(CKD) >90 (>60 ml/min/1.73 sqM); Sodium 138 mmol/L (137-145); Total Bilirubin 0.6 mg/dL (0.2-1.3); Total Protein 7.5 g/dL (6.3-8.2)
[2022-07-03] MEDS ORDERED: CEPHALEXIN 250 MG CAP PO STA (19:28)
[2022-07-03] MEDS ORDERED: MAGNESIUM HYDROXIDE 2,400 MG/10 ML CUP PO PRN (20:12)
[2022-07-03] MEDS ORDERED: hydrOXYzine HCL 50 MG/ML 1 ML VIAL IM PRN (20:12)
[2022-07-04] MEDS: ACETAMINOPHEN TAB 325 MG TAB PO PRN (00:41)
[2022-07-04] MEDS: hydrOXYzine pamoate 25 MG CAP PO PRN ×2 (04:16→16:30)
[2022-07-04] MEDS ORDERED: NICOTINE 14MG/24HR PATCH TRANSDERM SCH (09:00)
[2022-07-04 11:11] LABS: Chol/HDL Ratio 3.97 Ratio; LDL Cholesterol,Calculated 101.9 mg/dL (0.0-131.0)
[2022-07-04] MEDS ORDERED: HALOPERIDOL LACTATE 5 MG/ML 1 ML VIAL IM PRN (12:00)
[2022-07-04] MEDS ORDERED: haloperidoL 5 MG TAB PO PRN (12:00)
[2022-07-04] MEDS ORDERED: QUEtiapine 25 MG TAB PO STA (12:02)
[2022-07-04] MEDS: DULoxetine HCL 30 MG CAPSULE.DR PO SCH (12:21)
--- NOTE | 2022-07-04 13:49 | P.HP ---
Psychiatric H&P - . H&P Date: 07/04/22 History & Physical: Allergies Allergy/AdvReac Type Severity Reaction Status Date / Time haloperidol From Haldol Allergy Severe Facial & Verified 07/03/22 19:05 Tongue Swelling/Lethargic Vital Signs Temp 98.1 F 07/04/22 00:42 Pulse 95 07/04/22 00:42 Resp 15 07/04/22 00:42 BP 111/75 07/04/22 00:42 Pulse Ox 98 07/04/22 00:42 FiO2 Intake & Output 07/03/22 07/04/22 07/04/22 18:59 06:59 18:59 Weight 83.007 kg 83.5 kg Laboratory Last Values WBC 15.1 k/uL (3.8-10.6) H 07/03/22 18:42 RBC 4.94 m/uL (3.80-5.40) 07/03/22 18:42 Hgb 12.8 gm/dL (11.4-16.0) 07/03/22 18:42 Hct 40.5 % (34.0-46.0) 07/03/22 18:42 MCV 82.0 fL (80.0-100.0) 07/03/22 18:42 MCH 26.0 pg (25.0-35.0) 07/03/22 18:42 MCHC 31.7 g/dL (31.0-37.0) 07/03/22 18:42 RDW 14.3 % (11.5-15.5) 07/03/22 18:42 Plt Count 285 k/uL (150-450) 07/03/22 18:42 MPV 9.9 07/03/22 18:42 Neutrophils % 67 % 07/03/22 18:42 Lymphocytes % 19 % 07/03/22 18:42 Monocytes % 7 % 07/03/22 18:42 Eosinophils % 2 % 07/03/22 18:42 Basophils % 0 % 07/03/22 18:42 Neutrophils # 10.1 k/uL (1.3-7.7) H 07/03/22 18:42 Lymphocytes # 2.8 k/uL (1.0-4.8) 07/03/22 18:42 Monocytes # 1.1 k/uL (0-1.0) H 07/03/22 18:42 Eosinophils # 0.3 k/uL (0-0.7) 07/03/22 18:42 Basophils # 0.1 k/uL (0-0.2) 07/03/22 18:42 Sodium 138 mmol/L (137-145) 07/03/22 18:42 Potassium 4.0 mmol/L (3.5-5.1) 07/03/22 18:42 Chloride 102 mmol/L (98-107) 07/03/22 18:42 Carbon Dioxide 24 mmol/L (22-30) 07/03/22 18:42 Anion Gap 12 mmol/L 07/03/22 18:42 BUN 12 mg/dL (7-17) 07/03/22 18:42 Creatinine 0.76 mg/dL (0.52-1.04) 07/03/22 18:42 Est GFR (CKD-EPI)AfAm >90 (>60 ml/min/1.73 sqM) 07/03/22 18:42 Est GFR (CKD-EPI)NonAf >90 (>60 ml/min/1.73 sqM) 07/03/22 18:42 Glucose 105 mg/dL (74-99) H 07/03/22 18:[address] Glu mg/dL 103 07/04/22 06:52 Hemoglobin A1c 5.2 % (0.0-6.0) 07/04/22 06:52 Calcium 9.1 mg/dL (8.4-10.2) 07/03/22 18:42 Total Bilirubin 0.6 mg/dL (0.2-1.3) 07/03/22 18:42 AST 18 U/L (14-36) 07/03/22 18:42 ALT 14 U/L (4-34) 07/03/22 18:42 Alkaline Phosphatase 46 U/L (38-126) 07/03/22 18:42 Total Protein 7.5 g/dL (6.3-8.2) 07/03/22 18:42 Albumin 4.2 g/dL (3.5-5.0) 07/03/22 18:42 Triglycerides 130.00 mg/dL (0.00-149.00) 07/04/22 06:52 Cholesterol 171.00 mg/dL (0.00-200.00) 07/04/22 06:52 LDL Cholesterol, Calc 101.9 mg/dL (0.0-131.0) 07/04/22 06:52 VLDL Cholesterol, Calc 26.00 mg/dL (5.00-40.00) 07/04/22 06:52 HDL Cholesterol 43.10 mg/dL (40.00-60.00) 07/04/22 06:52 Cholesterol/HDL Ratio 3.97 Ratio 07/04/22 06:52 Urine Color Yellow 07/03/22 16:39 Urine Appearance Turbid (Clear) H 07/03/22 16:39 Urine pH 5.5 (5.0-8.0) 07/03/22 16:39 Ur Specific [place] 1.024 (1.001-1.035) 07/03/22 16:39 Urine Protein 1+ (Negative) H 07/03/22 16:39 Urine Glucose (UA) Negative (Negative) 07/03/22 16:39 Urine Ketones Negative (Negative) 07/03/22 16:39 Urine Blood Small (Negative) H 07/03/22 16:39 Urine Nitrite Positive (Negative) H 07/03/22 16:39 Urine Bilirubin Negative (Negative) 07/03/22 16:39 Urine Urobilinogen <2.0 mg/dL (<2.0) 07/03/22 16:39 Ur Leukocyte Esterase Large (Negative) H 07/03/22 16:39 Urine RBC 98 /hpf (0-5) H 07/03/22 16:39 Urine WBC >182 /hpf (0-5) H 07/03/22 16:39 Ur Squamous Epith Cells 52 /hpf (0-4) H 07/03/22 16:39 Urine Bacteria Many /hpf (None) H 07/03/22 16:39 Urine Mucus Occasional /hpf (None) H 07/03/22 16:39 Urine HCG, Qual Not Detected (Not Detectd) 07/03/22 18:42 Urine Opiates Screen Not Detected (NotDetected) 07/03/22 16:39 Ur Oxycodone Screen Not Detected (NotDetected) 07/03/22 16:39 Urine Methadone Screen Not Detected (NotDetected) 07/03/22 16:39 Ur Propoxyphene Screen Not Detected (NotDetected) 07/03/22 16:39 Ur Barbiturates Screen Not Detected (NotDetected) 07/03/22 16:39 U Tricyclic Antidepress Not Detected (NotDetected) 07/03/22 16:39 Ur Phencyclidine Scrn Not Detected (NotDetected) 07/03/22 16:39 Ur Amphetamines Screen Not Detected (NotDetected) 07/03/22 16:39 U Methamphetamines Scrn Not Detected (NotDetected) 07/03/22 16:39 U Benzodiazepines Scrn Not Detected (NotDetected) 07/03/22 16:39 Urine Cocaine Screen Not Detected (NotDetected) 07/03/22 16:39 U Marijuana (THC) Screen Detected (NotDetected) H 07/03/22 16:39 Influenza Type A (PCR) Not Detected (Not Detectd) 07/03/22 19:51 Influenza Type B (PCR) Not Detected (Not Detectd) 07/03/22 19:51 RSV (PCR) Not Detected (Not Detectd) 07/03/22 19:51 SARS-CoV-2 (PCR) Not Detected (Not Detectd) 07/03/22 19:51 07/04/22 11:51 IDENTIFYING DATA: Patient is a 37 yo cuacasian female, currently lives with her son and also with her boyfriend in an apartment. She claims that she has 4 kids total, is currently unemployed. HPI: Patient presented to the hospital through the ER stating that she was depressed, suicidal which has been increasing in intensity in the past several days. States that she did not have an immediate plan. Urine drug screen was positive for THC. Patient apparently had an appointment with [facility] on 07/08 however did not feel safe going home as she may harm herself. Claims that she was not taking psychiatric medications at home. Patient was seen today and agreeable to speak to singer songwriter in the office. She appeared to be frustrated depressed affect and also anxious. She states that "I can't deal with this ment al health anymore". She states that she stopped using methamphetamine and heroin since her previous admission to the mental health unit in December 2021. She states that she has been feeling irritable frustrated as well. States that she isn't having severe racing thoughts and suicidal thoughts. Claims that "everything can be calm in my environment and I still have thoughts of hurting myself". States that she has been dealing with paranoia as well towards other patients on the unit and staff members. States that she is feeling overwhelmed and hopeless. Claims that she has been scratching herself and attempt to harm herself. States that her sleep has been on and off, appetite as been on and off. 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 She states that she still has suicidal thoughts, no intent or plan while on the unit. Patient denies anyhomicidal ideations intent or plan. At this time patient denies any auditory or visual hallucinations. Patient denies any flight of ideas racing thoughts and increased in goal directed behavior. Patient admits to using smokes marijuana before bed, denying any other recreational drug use or cigarettes. PAST PSYCHIATRIC HISTORY: Patient states that she has a history of depression and bipolar disorder along with polysubstance abuse. Patient is currently not on any medications however used to be on Zyprexa clonidine and Wellbutrin during previous admission. She was last psychiatrically hospitalized in December 2021. Claims that her [facility] appointment was scheduled for 07/08/2022. States that she overdosed several times in the past in a suicide attempt. Past Medical History: No Reported History Additional Past Medical History / Comment(s): migraines History of Any Multi-Drug Resistant Organisms: None Reported Past Surgical History: Section Additional Past Surgical History / Comment(s): ovarian cyst removal Past Anesthesia/Blood Transfusion Reactions: No Reported Reaction Past Psychological History: Bipolar, Depression, PTSD Smoking Status: Former smoker Past Alcohol Use History: None Reported Past Drug Use History: Marijuana ALLERGIES: as per EMR CHEMICAL DEPENDENCY HISTORY: as per HPI FAMILY PSYCHIATRIC/SUBSTANCE USE HISTORY: Claims that her mother has schizophrenia, father has bipolar disorder. SOCIAL HISTORY: Patient was born and raised in [facility] and also [place]. She states that she did complete high school and did some college. States that she does not have a legal history. She claims that she currently lives with her son and also her boyfriend at times in an apartment. She has 4 kids total. Is currently unemployed. MENTAL STATUS EXAM: General Appearance: Patient appears to be a tall, stated age is alert, directable, and attempts to cooperate. Appears to be frustrated, anxious, Patient appears to have poor hygiene and grooming. Behavior: Patient is seated without any agitated behavior. Frustrated and anxious. Irritable at times. Speech: Patient's speech is fluent and nonpressured. Irritable tone. Mood/Affect: Patient reports their mood is depressed and anxious, affect is congruent Suicidality/Homicidality: Patient denies having any homicidal ideation intent or plan. Admits to current suicidal thoughts, no intent or plan. Perceptions: Patient denies any visual hallucinations and denies any auditory hallucinations Though content/process: There is no evidence of any delusional thought content and thought process is linear and goal-directed.] Focused on her symptoms. Memory and concentration: AOX3, grossly intact for the purposes of this session. Can spell "WORLD" backwards Judgment and insight: [poor]/impulsive STRENGTHS/WEAKNESSES: strength is that patient is [resilient]. Weakness is that patient [has poor judgment and is impulsive] INTELLECT: [average] IMPRESSIONS: []Bipolar disorder, current episode depressed Opioid use disorder currently in sustained remission Methamphetamine use disorder currently in sustained remission Cannabis use disorder PLAN: -Patient is admitted under [voluntary] status to MHU for stabilization of psychiatric symptoms and safety. Patient has signed [adult voluntary form and] [medication consent] and is placed in patient's chart. -Medications : Will start patient on seroquel 50 mg qhs for insomnia/mood stabilization, cymbalta 30 mg daily for mood/anxiety. melatonin prn for sleep -Vistaril [and Haldol] PRN for agitation/aggression -ordered a repeat UA, chlamydia, gonorrhea urine test as patient is complaining of dysuria and frequency and possibility exposure of STI recently [-Patient was counselled on substance abuse and desired to cut back on use] -Patient was informed of the risks, benefits and side effects of the medication and patient verbally consented to taking the medications. Patient signed med consent form and was placed in chart. -Internal Medicine consult to perform medical evaluation and physical. -NRT - not needed as patient does not smoke -SW on board for discharge planning. Encourage patient to participate in groups to work on coping skills. 07/04/22 13:40 07/04/22 13:47
[2022-07-04] MEDS: MAG HYDROX/AL HYDROX/SIMETH 30 ML CUP PO PRN (14:24)
[2022-07-04] MEDS ORDERED: ONDANSETRON 4 MG TAB PO PRN (15:05)
[2022-07-04 15:18] LABS: Appearance,Urine Cloudy (Clear); Bilirubin,Urine Negative (Negative); Blood,Urine Negative (Negative); Color,Urine Light Yellow; Glucose,Urine (UA) Negative (Negative); Ketones,Urine Negative (Negative); Leukocyte Esterase,Urine Large (Negative); Nitrite,Urine Negative (Negative); Protein,Urine Negative (Negative); Specific Gravity,Urine 1.009 (1.001-1.035); Squamous Epithelial Cell,Urine 5 /hpf (0-4); Urobilinogen,Urine <2.0 mg/dL (<2.0); WBC,Urine 14 /hpf (0-5)
[2022-07-04] MEDS ORDERED: QUEtiapine 50 MG TAB PO SCH (21:00)
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
[2022-07-05] MEDS: ACETAMINOPHEN TAB 325 MG TAB PO PRN (07:22)
[2022-07-05] MEDS: SULFAMETHOX-TMP 800-160MG 1 EACH TAB PO SCH ×2 (08:23→19:58)
[2022-07-05] MEDS: DOCUSATE 100 MG CAP PO SCH ×2 (08:24→19:59)
[2022-07-05] MEDS: DULoxetine HCL 30 MG CAPSULE.DR PO SCH (09:17)
--- NOTE | 2022-07-05 12:07 | P.PN ---
Progress Note - Text Progress Note Date: 07/05/22 Interval history: Patient was seen today in the hallways and agreeable to speak to chief writer in the office. Patient appeared to be fairly upset today and irritable. She states that she has been having a difficult time on the unit due to 2 other patients. She states that one of the patient's called her a "transvestite" and states that she was very offended by it. She claims that the nursing staff and also other staff on the unit have not been helping her. She was fairly demanding to the and had a low frustration tolerance. She states that "I might as well have stayed home because I don't feel safe here". Claims that she has been mainly sticking to herself and staying in her room. She has been up for meals. Appears mildly improving hygiene and grooming. Claims that her anxiety is still elevated and has depression. She is denying any suicidal or homicidal ideations intent or plan today. Denying any auditory visual hallucinations. Patient has been taking her medications. She states that she had a difficult time sleeping last night. Mental status exam: General Appearance: Patient appears to be a tall, stated age is alert, irritable yet directable, and attempts to cooperate. Appears to be frustrated, Patient appears to have improving hygiene and grooming. Behavior: Patient is seated without any agitated behavior. Frustrated and anxious. Irritable and demanding Speech: Patient's speech is fluent and nonpressured. Irritable tone. Mood/Affect: Patient reports their mood is depressed and anxious, affect is congruent Suicidality/Homicidality: Patient denies having any homicidal ideation intent or plan. Denies any suicidal thoughts, no intent or plan. Perceptions: Patient denies any visual hallucinations and denies any auditory hallucinations Though content/process: There is no evidence of any delusional thought content and thought process is linear and goal-directed.] Focused on her symptoms. Rambling at times Memory and concentration: AOX3, grossly intact for the purposes of this session Judgment and insight: poor/impulsive, improving mildly IMPRESSIONS: Bipolar disorder, current episode depressed Opioid use disorder currently in sustained remission Methamphetamine use disorder currently in sustained remission Cannabis use disorder PLAN: -Patient is admitted under voluntary status to MHU for stabilization of psychiatric symptoms and safety. Patient has signed adult voluntary form and medication consent and is placed in patient's chart. -Medications : increase seroquel 100 mg qhs for insomnia/mood stabilization, increase cymbalta 60 mg daily for mood/anxiety. melatonin prn for sleep -Vistaril and Haldol PRN for agitation/aggression -UA showed UTI, started abx, chlamydia, gonorrhea urine test pending -NRT - not needed as patient does not smoke -SW on board for discharge planning. Encourage patient to participate in groups to work on coping skills.
[2022-07-05] MEDS: MAG HYDROX/AL HYDROX/SIMETH 30 ML CUP PO PRN (12:23)
[2022-07-05 14:41] LABS: C. trachomatis,PCR Positive (Neg,Equiv); Chlamydia trachomatis Source Urine
[2022-07-05 14:52] LABS: N. gonorrhoeae,PCR Negative (Neg,Equiv); Neisseria Source Urine
[2022-07-05] MEDS ORDERED: AZITHROMYCIN 500 MG TAB PO STA (15:01)
[2022-07-05] MEDS: QUEtiapine 100 MG TAB PO SCH (19:58)
[2022-07-05] MEDS: MELATONIN 5 MG TABLET PO PRN (20:00)
[2022-07-05] MEDS ORDERED: flUPHENAZine 2.5 MG/ML (MDV) 10 ML VIAL IM PRN (21:49)
[2022-07-05] MEDS ORDERED: LORazepam 2 MG/ML INJ IM PRN (21:49)
[2022-07-05] MEDS: LORazepam 1 MG TAB PO PRN (22:07)
[2022-07-06] MEDS: DOCUSATE 100 MG CAP PO SCH ×2 (08:30→19:50)
[2022-07-06] MEDS: DULoxetine HCL 60 MG CAPSULE.DR PO SCH (08:30)
[2022-07-06] MEDS: SULFAMETHOX-TMP 800-160MG 1 EACH TAB PO SCH ×2 (08:30→19:49)
[2022-07-06] MEDS: LORazepam 1 MG TAB PO PRN ×2 (08:31→19:49)
[2022-07-06] MEDS: QUEtiapine 25 MG TAB PO SCH (11:11)
[2022-07-06] MEDS: ACETAMINOPHEN TAB 325 MG TAB PO PRN (17:23)
--- NOTE | 2022-07-06 19:10 | P.PN ---
Progress Note - Text Progress Note Date: 07/06/22 Interval history: Patient was seen today in the hallways talking to other patients and was agree able to speak to film writer in the office. Patient continues to be mildly irritable but is showing improvment. she continues to have several complaints about other patients and states that she had to wait until 10 pm to receive her results of her urine STI test. she claims that her mood and anxiety have been gradually improving. states that her anxiety is worst in the morning and has been taking ativan. she was more visible on the unit and has been going to groups more today. She has been up for meals. Appears mildly improving hygiene and grooming. She is denying any suicidal or homicidal ideations intent or plan today. Denying any auditory visual hallucinations. Patient has been taking her medications. She states that she had a difficult time sleeping last night due to being awoken by the medical doctor. Mental status exam: General Appearance: Patient appears to be a tall, stated age is alert, less irritable yet directable, and attempts to cooperate. Appears to be frustrated, Patient appears to have improving hygiene and grooming. Behavior: Patient is seated without any agitated behavior. less Frustrated and anxious. Irritable, improving Speech: Patient's speech is fluent and nonpressured. Mood/Affect: Patient reports their mood is depressed and anxious, improving mildly, affect is congruent Suicidality/Homicidality: Patient denies having any homicidal ideation intent o r plan. Denies any suicidal thoughts, no intent or plan. Perceptions: Patient denies any visual hallucinations and denies any auditory hallucinations Though content/process: There is no evidence of any delusional thought content and thought process is linear and goal-directed.] Focused on her symptoms. Rambling Memory and concentration: AOX3, grossly intact for the purposes of this session Judgment and insight: poor/impulsive, improving mildly IMPRESSIONS: Bipolar disorder, current episode depressed Opioid use disorder currently in sustained remission Methamphetamine use disorder currently in sustained remission Cannabis use disorder PLAN: -Patient is admitted under voluntary status to MHU for stabilization of psychiatric symptoms and safety. Patient has signed adult voluntary form and medication consent and is placed in patient's chart. -Medications : increase seroquel 100 mg qhs + 25 mg daily for insomnia/mood stabilization, cymbalta 60 mg daily for mood/anxiety. melatonin prn for sleep. -Vistaril and prolixin PRN for agitation/aggression -UA showed UTI, started abx, chlamydia test positive, given Azithromycin 1000mg Once, gonorrhea urine test negative. -NRT - not needed as patient does not smoke -SW on board for discharge planning. Encourage patient to participate in groups to work on coping skills. possible discharge monday vs monday
[2022-07-06] MEDS: MELATONIN 5 MG TABLET PO PRN (19:49)
[2022-07-06] MEDS: IBUPROFEN 600 MG TAB PO PRN (19:49)
[2022-07-06] MEDS: QUEtiapine 100 MG TAB PO SCH (19:50)
[2022-07-07] MEDS: IBUPROFEN 600 MG TAB PO PRN ×2 (05:33→12:30)
[2022-07-07] MEDS: DULoxetine HCL 60 MG CAPSULE.DR PO SCH (08:03)
[2022-07-07] MEDS: QUEtiapine 25 MG TAB PO SCH (08:03)
[2022-07-07] MEDS: LORazepam 1 MG TAB PO PRN ×2 (08:03→20:40)
[2022-07-07] MEDS: polyethylene glycoL 3350 17 GM POWD.PACK PO SCH (08:03)
[2022-07-07] MEDS: SULFAMETHOX-TMP 800-160MG 1 EACH TAB PO SCH ×2 (08:03→20:38)
[2022-07-07] MEDS: DOCUSATE 100 MG CAP PO SCH ×2 (08:03→20:38)
[2022-07-07] MEDS: busPIRone HCl 5 MG TAB PO SCH ×2 (10:33→20:38)
--- NOTE | 2022-07-07 13:11 | P.PN ---
Progress Note - Text Progress Note Date: 07/07/22 Interval history: Patient was seen today in the hallways talking to other patients and was agree able to speak to typewriter mechanic in the office. Patient continues to be mildly irritable but is showing improvment. She states that she is still feeling fairly anxious during the day. We spoke about other alternatives to help her anxiety and she is agreeable to try BuSpar. She claims that she did sleep fair last night however did awake at times and did not sleep to the whole night. We spoke about increasing her Seroquel which she was okay with. She states that she is trying to go to groups and participate as much as she can. She continues to state that she is struggling with suicidal thoughts, passive in nature no intent or plan on the unit. she was more visible on the unit and has been going to groups more today. She has been up for meals. Appears mildly improving hygiene and grooming. She is denying any homicidal ideations intent or plan today. Denying any auditory visual hallucinations. Patient has been taking her medications. Mental status exam: General Appearance: Patient appears to be a tall, stated age is alert, less irritable, attempts to cooperate. Appears to be frustrated, Patient appears to have improving hygiene and grooming. Behavior: Patient is seated without any agitated behavior. less Frustrated. Speech: Patient's speech is fluent and nonpressured. Mood/Affect: Patient reports their mood is mainly anxious, improving mildly, affect is congruent Suicidality/Homicidality: Patient denies having any homicidal ideation intent or plan. Denies any suicidal thoughts, no intent or plan. Perceptions: Patient denies any visual hallucinations and denies any auditory hallucinations Though content/process: There is no evidence of any delusional thought content and thought process is linear and goal-directed.] Focused on her symptoms. Rambling Memory and concentration: AOX3, grossly intact for the purposes of this session Judgment and insight: poor/impulsive, improving mildly IMPRESSIONS: Bipolar disorder, current episode depressed Opioid use disorder currently in sustained remission Methamphetamine use disorder currently in sustained remission Cannabis use disorder PLAN: -Patient is admitted under voluntary status to MHU for stabilization of psych iatric symptoms and safety. Patient has signed adult voluntary form and medication consent and is placed in patient's chart. -Medications : increase seroquel 150 mg qhs + 25 mg daily for insomnia/mood stabilization, increase cymbalta 90 mg daily for mood/anxiety. melatonin prn for sleep. added buspar 15 mg bid for anxiety. -Vistaril and prolixin PRN for agitation/aggression -UA showed UTI, started abx, chlamydia test positive, given Azithromycin 1000mg Once, gonorrhea urine test negative. -NRT - not needed as patient does not smoke -SW on board for discharge planning. Encourage patient to participate in groups to work on coping skills. possible discharge monday vs monday
[2022-07-07] MEDS: MAG HYDROX/AL HYDROX/SIMETH 30 ML CUP PO PRN (13:30)
[2022-07-07] MEDS ORDERED: SENNOSIDES 8.6 MG TAB PO PRN (16:56)
[2022-07-07] MEDS: QUEtiapine 50 MG TAB PO SCH (20:38)
[2022-07-08] MEDS: LORazepam 1 MG TAB PO PRN ×2 (08:29→17:54)
[2022-07-08] MEDS: IBUPROFEN 600 MG TAB PO PRN ×2 (08:29→17:54)
[2022-07-08] MEDS: SULFAMETHOX-TMP 800-160MG 1 EACH TAB PO SCH (08:30)
[2022-07-08] MEDS: DOCUSATE 100 MG CAP PO SCH ×2 (08:30→20:09)
[2022-07-08] MEDS: busPIRone HCl 5 MG TAB PO SCH (08:30)
[2022-07-08] MEDS: QUEtiapine 25 MG TAB PO SCH (08:31)
[2022-07-08] MEDS: polyethylene glycoL 3350 17 GM POWD.PACK PO SCH (08:33)
[2022-07-08] MEDS ORDERED: DULoxetine HCL 30 MG CAPSULE.DR PO SCH (09:00)
--- NOTE | 2022-07-08 11:29 | P.PN ---
Progress Note - Text Progress Note Date: 07/08/22 Interval history: Patient was seen today in the hallways talking to other patients and was agree able to speak to health underwriter in the office. Patient was also seen earlier participating in group. She states that today is the first day that she is feeling less suicidal. Claims that she is still struggling with anxiety during the day. Claims that it mainly prevalent in the morning time. Claims that the BuSpar has not been helping her yet and we decided to increase the medication which she was okay with. We also spoke about increasing Cymbalta over the weekend which she was also okay with. States that she did sleep better last night however did have 1 or 2 awakenings. States that she is trying to get along more with other people on the unit and appears to be calmer affect. States that she is showering and attending most groups, she is eating fairly. She is denying any suicidal or homicidal ideations intent or plan today. Denying any auditory visual hallucinations. Patient has been taking her medications. Mental status exam: General Appearance: Patient appears to be a tall, stated age is alert, less irritable, attempts to cooperate. Patient appears to have improving hygiene and grooming. Behavior: Patient is seated without any agitated behavior. more cooperated today Speech: Patient's speech is fluent and nonpressured. Mood/Affect: Patient reports their mood is mainly anxious, improving mildly, affect is congruent and improving Suicidality/Homicidality: Patient denies having any homicidal ideation intent or plan. Denies any suicidal thoughts, no intent or plan. Perceptions: Patient denies any visual hallucinations and denies any auditory hallucinations Though content/process: There is no evidence of any delusional thought content and thought process is linear and goal-directed.] Focused on her symptoms. Rambling Memory and concentration: AOX3, grossly intact for the purposes of this session Judgment and insight: poor/impulsive, improving mildly IMPRESSIONS: Bipolar disorder, current episode depressed Opioid use disorder currently in sustained remission Methamphetamine use disorder currently in sustained remission Cannabis use disorder PLAN: -Patient is admitted under voluntary status to [facility] for stabilization of psychiatric symptoms and safety. Patient has signed adult voluntary form and medication consent and is placed in patient's chart. -Medications : seroquel 150 mg qhs + 25 mg daily for insomnia/mood stabilization, increase cymbalta 60 mg BID for mood/anxiety starting tomorrow. melatonin prn for sleep. increase buspar 20 mg bid for anxiety and can be increased over the weekend if needed. -Vistaril and prolixin PRN for agitation/aggression -UA showed UTI, started abx, chlamydia test positive, given Azithromycin 1000mg Once, gonorrhea urine test negative. -NRT - not needed as patient does not smoke -SW on board for discharge planning. Encourage patient to participate in groups to work on coping skills. if patient continues to improve and doing well then likely discharge monday back home.
[2022-07-08] MEDS: busPIRone HCl 10 MG TAB PO SCH (20:09)
[2022-07-08] MEDS: QUEtiapine 50 MG TAB PO SCH (20:09)
[2022-07-09 06:58] VITALS: RESP 18
[2022-07-09] MEDS: busPIRone HCl 10 MG TAB PO SCH ×2 (08:33→20:48)
[2022-07-09] MEDS: polyethylene glycoL 3350 17 GM POWD.PACK PO SCH (08:33)
[2022-07-09] MEDS: DULoxetine HCL 60 MG CAPSULE.DR PO SCH ×2 (08:33→20:48)
[2022-07-09] MEDS: DOCUSATE 100 MG CAP PO SCH ×2 (08:33→20:48)
[2022-07-09] MEDS: QUEtiapine 25 MG TAB PO SCH (08:34)
[2022-07-09] MEDS: IBUPROFEN 600 MG TAB PO PRN (16:43)
--- NOTE | 2022-07-09 20:01 | P.PN ---
Progress Note - Text Progress Note Date: 07/09/22 Interval history: Patient was seen consoling another patient in the hallway and was directable and agreeable to speak with conventional mortgage underwriter. At this time patient denies any suicidal or homicidal ideation, intent or plan. Denies any auditory or visual hallucinations. Patient denies any side effects from the medications and has been compliant with meds. She reports sleeping about 5-6 hours of sleep per night, and had been tired this morning. Mental status exam: General Appearance: Patient appears to be stated age is alert, good hygiene/grooming. Behavior: [No agitated behavior. Patient is calm and directable] Speech: Patient's speech is fluent and non-pressured. Mood/Affect: Mood is improving mildly, affect is congruent and constricted. Suicidality/Homicidality: Patient denies having any suicidal or homicidal ideation intent or plan. Perceptions: Patient denies any auditory or visual hallucinations. Though content/process: There is no evidence of any delusional thought content and thought process is linear and goal-directed. Memory and concentration: AOX3, grossly intact for the purposes of this session Judgment and insight: improving mildly Assessment/Plan: Continue with current diagnosis. Patient continues to meet criteria for inpatient psychiatric admission for symptom stabilization and safety. Patient will be maintained on current psychotropic medication regimen. Monitor for medication compliance and for any psychotropic medication side effects. Will continue to monitor ongoing response to treatment. Encouraged participation in milieu.
[2022-07-09] MEDS: QUEtiapine 50 MG TAB PO SCH (20:48)
[2022-07-10] MEDS: IBUPROFEN 600 MG TAB PO PRN (07:00)
[2022-07-10] MEDS: busPIRone HCl 10 MG TAB PO SCH ×2 (08:08→20:10)
[2022-07-10] MEDS: DULoxetine HCL 60 MG CAPSULE.DR PO SCH ×2 (08:08→20:10)
[2022-07-10] MEDS: DOCUSATE 100 MG CAP PO SCH ×2 (08:08→20:11)
[2022-07-10] MEDS: LORazepam 1 MG TAB PO PRN ×3 (08:08→20:12)
[2022-07-10] MEDS: QUEtiapine 25 MG TAB PO SCH (08:08)
[2022-07-10] MEDS: polyethylene glycoL 3350 17 GM POWD.PACK PO SCH (08:28)
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
--- NOTE | 2022-07-10 19:39 | P.PN ---
Progress Note - Text Progress Note Date: 07/10/22 Interval history: Patient was seen in her room and was directable and agreeable to speak with life underwriter. She reports feeling a little sad since it is Mother's Day and she is in the hospital and is missing home. At this time patient denies any suicidal or homicidal ideation, intent or plan. Denies any auditory or visual hallucinations. Patient denies any side effects from the medications and has been compliant with meds. She reports no problems with sleep and appetite. Mental status exam: General Appearance: Patient appears to be stated age is alert, good hygiene/grooming. Behavior: No agitated behavior. Patient is calm and directable. Speech: Patient's speech is fluent and non-pressured. Mood/Affect: Mood is improving mildly, affect is congruent and constricted. Suicidality/Homicidality: Patient denies having any suicidal or homicidal ideation intent or plan. Perceptions: Patient denies any auditory or visual hallucinations. Though content/process: There is no evidence of any delusional thought content and thought process is linear and goal-directed. Memory and concentration: AOX3, grossly intact for the purposes of this session Judgment and insight: improving mildly Assessment/Plan: Continue with current diagnosis. Patient continues to meet criteria for inpatient psychiatric admission for symptom stabilization and safety. Patient will be maintained on current psychotropic medication regimen. Monitor for medication compliance and for any psychotropic medication side effects. Will continue to monitor ongoing response to treatment. Encouraged participation in milieu. Consider discharge tomorrow (Monday) if continues to stabilize.
[2022-07-10] MEDS: QUEtiapine 50 MG TAB PO SCH (20:11)
[2022-07-10] MEDS: MELATONIN 5 MG TABLET PO PRN (20:12)
[2022-07-11] MEDS: IBUPROFEN 600 MG TAB PO PRN (03:18)
[2022-07-11 03:20] VITALS: BP 120/77; PULSE 113; TEMP 97.8
[2022-07-11] MEDS: DOCUSATE 100 MG CAP PO SCH (08:22)
[2022-07-11] MEDS: busPIRone HCl 10 MG TAB PO SCH (08:22)
[2022-07-11] MEDS: DULoxetine HCL 60 MG CAPSULE.DR PO SCH (08:22)
[2022-07-11] MEDS: polyethylene glycoL 3350 17 GM POWD.PACK PO SCH (08:23)
[2022-07-11] MEDS: QUEtiapine 25 MG TAB PO SCH (08:23)
--- NOTE | 2022-07-11 12:19 | P.DS ---
Providers Date of admission: 07/03/22 20:09 Attending physician: Lauri Robbins MD Consults: 07/03/22 20:12 Consult Physician Routine Consulting Provider: Ailyn Damico Consult Reason/Comments: medical management Do you want consulting provider notified?: Yes 07/09/22 19:20 Consult Physician Urgent Consulting Provider: Vanda Andersen Consult Reason/Comments: pelvic lesions Do you want consulting provider notified?: Yes Primary care physician: Stated None Patient Condition at Discharge: Fair Plan - Discharge Summary Discharge Rx Participant: Yes New Discharge Prescriptions: New QUEtiapine [SEROquel] 150 mg PO HS 30 Days #30 tab busPIRone HCl [Buspar] 20 mg PO BID 30 Days #60 tab DULoxetine HCL [Cymbalta] 60 mg PO BID 30 Days #60 cap QUEtiapine [SEROquel] 25 mg PO DAILY 30 Days #30 tab No Action No Known Home Medications Discharge Medication List No Known Home Medications 07/03/22 [History] DULoxetine HCL [Cymbalta] 60 mg PO BID 30 Days #60 cap 07/11/22 [Rx] QUEtiapine [SEROquel] 25 mg PO DAILY 30 Days #30 tab 07/11/22 [Rx] QUEtiapine [SEROquel] 150 mg PO HS 30 Days #30 tab 07/11/22 [Rx] busPIRone HCl [Buspar] 20 mg PO BID 30 Days #60 tab 07/11/22 [Rx] Follow up Appointment(s)/Referral(s): [facility], [facility] [Other] - 07/13/22 8:00 am () [facility] [Outside] - 07/18/22 2:00 pm ( July 18 at 2:00pm with Ella.) None,Stated [Primary Care Provider] - 1-2 days Activity/Diet/Wound Care/Special Instructions: Avoid the use of street drugs and alcohol. Take all medications as prescribed. When you are in need of refills on your medications, please contact your medical provider and/or outpatient psychiatrist to have this done. Please go to scheduled outpatient appointments for aftercare treatment. If symptoms return or become worse, call the crisis line at and/or go to the nearest emergency room for evaluation.
== END 2022-07-11 17:10 | disposition home or self-care (01) | DRG 885 ==
LOC: EC 15:55 → 3MHU 20:09
PROVIDERS: ADMIT Psychiatry & Neurology Psychiatry; ATTEND Psychiatry & Neurology Psychiatry
DX: F31.30 Bipolar disorder, current episode depressed, mild or moderate severity, unspecified (principal); R45.851 Suicidal ideations; A74.9 Chlamydial infection, unspecified; F11.91 Opioid use, unspecified, in remission; F15.91 Other stimulant use, unspecified, in remission; F43.10 Post-traumatic stress disorder, unspecified; N90.89 Other specified noninflammatory disorders of vulva and perineum; Z56.0 Unemployment, unspecified; Z81.8 Family history of other mental and behavioral disorders; Z91.51 Personal history of suicidal behavior; Z87.891 Personal history of nicotine dependence
CPT/HCPCS: 36415; 80053; 80061; 80306; 81001; 81025; 82075; 83036; 85025; 87077; 87086; 87186; 87491; 87591; 87636; 99285

== ENCOUNTER 2022-07-26 13:00 | Inpatient (IN) | payer OTHER ==
[2022-07-26] MEDS ORDERED: NALOXONE 0.4 MG/ML 1 ML VIAL IV STA (13:08)
[2022-07-26] MEDS ORDERED: SODIUM CHLORIDE 0.9% 1,000 ML IV STA ×2 (13:08→14:02)
[2022-07-26 13:13] LABS: Glucose,Whole Blood 134 mg/dL (70-110)
[2022-07-26 13:20] LABS: HCT 39.1 % (34.0-46.0); HGB 12.9 gm/dL (11.4-16.0); MCH 27.5 pg (25.0-35.0); MCV 83.5 fL (80.0-100.0); Mean Platelet Volume 9.6; Platelet Count 223 k/uL (150-450); RBC 4.68 m/uL (3.80-5.40); RDW 14.7 % (11.5-15.5); WBC 11.9 k/uL (3.8-10.6)
--- NOTE | 2022-07-26 13:24 | XR ---
EXAMINATION TYPE: XR chest 1V portable DATE OF EXAM: 07/26/2022 1:18 PM COMPARISON: CT 10/01/2013 TECHNIQUE: XR chest 1V portable Frontal view of the chest. CLINICAL INDICATION:Female, 37 years old with history of overdose; FINDINGS: Lungs/Pleura: Azygous fissure in the right upper lobe medially. Bibasilar atelectasis. There is no ev idence of pleural effusion, focal consolidation, or pneumothorax. Pulmonary vascularity: Unremarkable. Heart/mediastinum: Cardiomediastinal silhouette is unremarkable. Musculoskeletal: No acute osseous pathology. IMPRESSION: Bibasilar atelectasis, No acute cardiopulmonary disease/process.
[2022-07-26 13:33] LABS: ALT 15 U/L (4-34); AST 19 U/L (14-36); Acetaminophen <10.0 ug/mL; African American GFR (CKD) >90 (>60 ml/min/1.73 sqM); Albumin 4.2 g/dL (3.5-5.0); Alcohol <10 mg/dL; Alkaline Phosphatase 54 U/L (38-126); Anion Gap 13 mmol/L; Bilirubin, Delta 0.2 mg/dL (0.0-0.2); Bilirubin,Unconjugated 0.5 mg/dL (0.0-1.1); Blood Urea Nitrogen 9 mg/dL (7-17); Carbon Dioxide 19 mmol/L (22-30); Chloride 104 mmol/L (98-107); Glucose 135 mg/dL (74-99); Non-African American GFR(CKD) >90 (>60 ml/min/1.73 sqM); Potassium 3.6 mmol/L (3.5-5.1); Salicylate <1.0 mg/dL; Sodium 136 mmol/L (137-145); Total Bilirubin 0.7 mg/dL (0.2-1.3); Total Protein 7.3 g/dL (6.3-8.2)
[2022-07-26 13:45] LABS: Prothrombin Time 10.5 sec (9.0-12.0)
--- NOTE | 2022-07-26 13:47 | ED ---
General Adult HPI - General Chief complaint: Overdose Stated complaint: overdose Time Seen by Provider: 07/26/22 13:10 Source: family, RN notes reviewed, old records reviewed Mode of arrival: EMS Limitations: altered mental status - History of Present Illness Initial comments: Patient is a 37-year-old female presents here to department over concern for overdose. Patient was dropped off by unknown individuals and taken out of the car. She was wheeled back here for immediate evaluation. Has a history of psychiatric illness. Patient does have a history of overdose with Tylenol. She is prescribed buspirone, Seroquel, Cymbalta. Is unable to provide any history. Does have a piece of finger with potential list of medications that she overdosed on her person that patient came to the emergency department. There is nothing else with her at this time. Presents for further evaluation at this time. Person that brought the patient to the ER is not available and has left. - Related Data Home Medications Medication Instructions Recorded Confirmed QUEtiapine FUMARATE [SEROquel] 300 mg PO HS 07/26/22 07/26/22 QUEtiapine [SEROquel] 50 mg PO DAILY 07/26/22 07/26/22 busPIRone HCl [Buspar] 10 mg PO BID 07/26/22 07/26/22 cloNIDine HCL 0.1 mg PO BID PRN 07/26/22 07/26/22 Previous Rx's Medication Instructions Recorded DULoxetine HCL [Cymbalta] 60 mg PO BID 30 Days #60 cap 07/11/22 Allergies Allergy/AdvReac Type Severity Reaction Status Date / Time haloperidol [From Haldol] Allergy Severe Facial & Verified 07/26/22 13:25 Tongue Swelling/Lethargic diphenhydramine AdvReac Hallucinati Verified 07/26/22 13:25 [From Triaminic Allergy] ons Review of Systems ROS Statement: Those systems with pertinent positive or pertinent negative responses have been documented in the HPI. ROS Other: All systems not noted in ROS Statement are negative. Past Medical History Past Medical History: No Reported History Additional Past Medical History / Comment(s): migraines History of Any Multi-Drug Resistant Organisms: None Reported Past Surgical History: Section Additional Past Surgical History / Comment(s): ovarian cyst removal Past Anesthesia/Blood Transfusion Reactions: No Reported Reaction Past Psychological History: Bipolar, Depression, PTSD Smoking Status: Former smoker Past Alcohol Use History: None Reported Past Drug Use History: Marijuana - Past Family History Father Family Medical History: Blood Disorder, Cancer, Diabetes Mellitus, Hypertension Additional Family Medical History / Comment(s): type 1 diabetes, pancreatic cancer Mother Family Medical History: Diabetes Mellitus, Hypertension, Seizure Disorder Additional Family Medical History / Comment(s): type 2 General Exam - General Exam Comments Initial Comments: General: Appears sleepy. Will awaken to stimulation. HEAD: Normal with no signs of head trauma. EYES: PERRLA, EOMI, conjunctiva normal, no discharge. Pupils are 2-3 mm and equal bilaterally. ENT: Hearing grossly intact, normal oropharynx. RESPIRATORY: Clear breath sounds bilaterally. No wheezes, rales, or rhonchi. C/V: Tachycardic with regular rhythm. S1 and S2 auscultated, no edema, peripheral pulses 2+ and intact throughout ABD: Abd is soft, nontender, nondistended EXT: Normal range of motion, no obvious deformity SKIN: No rashes or lesions observed on exposed skin. NEURO: Alert but not oriented. GCS is 11-12. Moving all 4 extremities. Exam difficult to obtain secondary to patient's current neurological status likely from overdose. Limitations: altered mental status Course Vital Signs 07/26/22 07/26/22 07/26/22 13:10 13:17 13:20 Pulse Rate 133 H 125 H Respiratory 12 16 16 Rate Blood Pressure 140/94 124/83 O2 Sat by Pulse 100 Oximetry 07/26/22 07/26/22 07/26/22 15:14 16:38 18:01 Pulse Rate 128 H 120 H 138 H Respiratory 16 12 18 Rate Blood Pressure 120/93 120/93 O2 Sat by Pulse 99 96 Oximetry Medical Decision Making - Medical Decision Making Was pt. sent in by a medical professional or institution (, PA, AIRCRAFT LAYOUT WORKER, urgent care, hospital, or care home...) When possible be specific @ -No Did you speak to anyone other than the patient for history (EMS, parent, family, police, friend...)? What history was obtained from this source @ -I did speak with the patient's significant other listed in the chart, Marquis Tinoco, who was unaware that the patient was brought to the emergency department and it does not appear he was the one who dropped her off. States he has been doing well and was not suspecting that she would've overdosed. Did you review nursing and triage notes (agree or disagree)? Why? @ -I reviewed and agree with nursing and triage notes Were old charts reviewed (outside hosp., previous admission, EMS record, old EKG, old radiological studies, urgent care reports/EKG's, care home records)? Report findings @ -Old charts reviewed from her overdose with Tylenol in December 2021 Differential Diagnosis (chest pain, altered mental status, abdominal pain women, abdominal pain men, vaginal bleeding, weakness, fever, dyspnea, syncope, headache, dizziness, GI bleed, back pain, seizure, CVA, palpatations, mental health, musculoskeletal)? @ -Differential Altered Mental Status: Hypoglycemia, DKA, hypercapnia, ETOH, overdose, CO poisoning, trauma, myxedema coma, HTN encephalopathy, infection, encephalitis, psychosis, intercranial hemorrhage, hepatic encephalopathy, meningitis, CVA, this is not meant to be an all-inclusive list EKG interpreted by me (3pts min.). @ -As above X-rays interpreted by me (1pt min.). @ - Chest x-ray reveals no obvious acute cardio pulmonary process CT interpreted by me (1pt min.). @ -CT brain reveals no obvious acute process. U/S interpreted by me (1pt. min.). @ -None done What testing was considered but not performed or refused? (CT, X-rays, U/S, labs)? Why? @ -None What meds were considered but not given or refused? Why? @ -None Did you discuss the management of the patient with other professionals (pro fessionals i.e. , PA, AIRCRAFT LAYOUT WORKER, lab, RT, psych nurse, long term care social worker, certified anesthesiologist assistant, teacher, mounted police officer, counter caser)? Give summary @ -Spoke with admitting physician Dr. olivera who was in agreement with the plan and accepted the patient. Poison control contacted by nursing staff who was in agreement with the workup and plan. Recommended symptomatic treatment as well as when necessary Ativan for agitation. Recommended repeat EKGs to monitor QRS and QTc intervals. Was smoking cessation discussed for >3mins.? @ -No Was critical care preformed (if so, how long)? @ -Yes, 35 minutes Were there social determinants of health that impacted care today? How? (Homelessness, low income, unemployed, alcoholism, drug addiction, transportation, low edu. Level, literacy, decrease access to med. care, [facility] [facility], rehab)? @ -No Was there de-escalation of care discussed even if they declined (Discuss DNR or withdrawal of care, Hospice)? DNR status @ -No What co-morbidities impacted this encounter? (DM, HTN, Smoking, COPD, CAD, Cancer, CVA, ARF, Chemo, Hep., AIDS, mental health diagnosis, sleep apnea, morbid obesity)? @ -Psychiatric history Was patient admitted / discharged? Hospital course, mention meds given and route, prescriptions, significant lab abnormalities, going to OR and other pertinent info. @ -Based on the patient's presentation and physical exam, I'm concerned for an overdose for the patient. She cannot provide any history. We have minimal h istory at this time. She presents simply with a written out list of medications and we suspect a tablet numbers for overdose which is what was instructed to triage by the unknown individual but dropped her off those pills that she took. GCS is currently 11-12. Unknown when she would've ingested these medications. I did speak with significant other and sounds like she has been doing well so likely between this morning when she last saw him in current presentation. Vital signs are within acceptable limits except for tachycardia. We'll provide her with 1 L fluid bolus and obtained an overdose labs. We will reach out to poison control for their recommendations for the patient. Patient's list of medications that she potentially overdosed on based on the piece of paper that she presented with was a total 29 tablets of 50 mg of Seroquel, 27 tablets of 25 mg of Seroquel, 32 tablets of 60 mg Cymbalta, 8 tablets of 10 mg buspirone, 20 tablets 300 mg Seroquel. Once again this is the worst case scenario based off the list she presented with, as we are unable to confirm what this list means exactly. She is prescribed these MEDICATIONS. Does not present with any pill bottles. EKG shows sinus tachycardia with no evidence of acute ischemia. QRS interval is within normal limits. QT interval is within acceptable limits. Imaging is unremarkable.Patient's labs are remarkable for mild leukocytosis of 11.9 which is likely reactive. Lactic acid is mildly elevated to 2.2 which clears following IV fluids. UDS is positive for TCAs. Remainder of the labs are within acceptable limits. On reevaluation, patient is somewhat more alert but still not oriented. She'll wake up and look at you when be somewhat cooperative but is still altered. Workup is unremarkable. Patient's significant other is present at this time at bedside. He last saw the patient last night but this morning receive text messages from the patient while she was dropping her child off at school and she seemed normal. This is likely last known well. He is uncertain how much she took. Believes that the person that brought her here was a coworker friend. Does have a history of overdose. He does not believe that she has been more stressed or suicidal lately as nothing was revealed to him. He states he will try to go home and find the pill bottles. Patient will be admitted at this time. Poison control was contacted and they were in agreement the workup. They requested that we obtain a creatinine kinase which was within normal limits at 73. They also requested we obtain a VBG which showed a slightly decreased bicarb of 20. They otherwise were in agreement with the plan for symptomatic treatment with IV fluids and Ativan as needed for agitation. Patient will be given a dose of Ativan states that it affects her heart rate. There were in agreement with this plan. Patient will be admitted to the hospital. She is protecting her airway, and intubation was not required at this time. Res piratory compromise remains possible and she will be closely monitored. I spoke with soledad breen of the accepted the patient. Psych consult was placed. Suicide precautions were ordered. Sitter was ordered. Patient's heart rate did improve to 120 following dose of Ativan. We'll continue to monitor. Patient admitted in serious condition. Undiagnosed new problem with uncertain prognosis? @ -No Drug Therapy requiring intensive monitoring for toxicity (Heparin, Nitro, Insulin, Cardizem)? @ -No Were any procedures done? @ -No Diagnosis/symptom? @ -Overdose causing altered mental status likely from Seroquel, bupropion, Cymbalta. encounter for psychiatric evaluation Acute, or Chronic, or Acute on Chronic? @ -Acute Uncomplicated (without systemic symptoms) or Complicated (systemic symptoms)? @ -Complicated Side effects of treatment? @ -none Exacerbation, Progression, or Severe Exacerbation] @ -no Poses a threat to life or bodily function? @ -yes - Lab Data Result diagrams: 07/26/22 13:00 07/26/22 13:00 Lab Results 07/26/22 07/26/22 07/26/22 Range/Units 13:00 13:00 13:00 WBC 11.9 H (3.8-10.6) k/uL RBC 4.68 (3.80-5.40) m/uL Hgb 12.9 (11.4-16.0) gm/dL Hct 39.1 (34.0-46.0) % MCV 83.5 (80.0-100.0) fL MCH 27.5 (25.0-35.0) pg MCHC 33.0 (31.0-37.0) g/dL RDW 14.7 (11.5-15.5) % Plt Count 223 (150-450) k/uL MPV 9.6 Neutrophils % (Manual) 82 % Band Neuts % (Manual) 1 % Lymphocytes % (Manual) 12 % Monocytes % (Manual) 5 % Neutrophils # (Manual) 9.80 H (1.3-7.7) k/uL Lymphocytes # (Manual) 1.43 (1.0-4.8) k/uL Monocytes # (Manual) 0.60 (0-1.0) k/uL Nucleated RBCs 0 (0-0) /100 WBC Manual Slide Review Performed Poikilocytosis (manual Present PT 10.5 (9.0-12.0) sec INR 1.0 (<1.2) VBG pH (7.31-7.41) VBG pCO2 (37-51) mmHg VBG HCO3 (24-28) mmol/L Sodium 136 L (137-145) mmol/L Potassium 3.6 (3.5-5.1) mmol/L Chloride 104 (98-107) mmol/L Carbon Dioxide 19 L (22-30) mmol/L Anion Gap 13 mmol/L BUN 9 (7-17) mg/dL Creatinine 0.53 (0.52-1.04) mg/dL Est GFR (CKD-EPI)AfAm >90 (>60 ml/min/1.73 sqM) Est GFR (CKD-EPI)NonAf >90 (>60 ml/min/1.73 sqM) Glucose 135 H (74-99) mg/dL POC Glucose (mg/dL) (70-110) mg/dL POC Glu Grapple Operator ID Lactic Ac Sepsis Rflx Plasma Lactic Acid Sudhir (0.7-2.0) mmol/L Calcium 9.0 (8.4-10.2) mg/dL Total Bilirubin 0.7 (0.2-1.3) mg/dL Conjugated Bilirubin 0.0 (0.0-0.3) mg/dL Unconjugated Bilirubin 0.5 (0.0-1.1) mg/dL Delta Bilirubin 0.2 (0.0-0.2) mg/dL AST 19 (14-36) U/L ALT 15 (4-34) U/L Alkaline Phosphatase 54 (38-126) U/L Creatine Kinase (30-135) U/L Troponin I (0.000-0.034) ng/mL Total Protein 7.3 (6.3-8.2) g/dL Albumin 4.2 (3.5-5.0) g/dL Urine Color Urine Appearance (Clear) Urine pH (5.0-8.0) Ur Specific [place] (1.001-1.035) Urine Protein (Negative) Urine Glucose (UA) (Negative) Urine Ketones (Negative) Urine Blood (Negative) Urine Nitrite (Negative) Urine Bilirubin (Negative) Urine Urobilinogen (<2.0) mg/dL Ur Leukocyte Esterase (Negative) Urine RBC (0-5) /hpf Urine WBC (0-5) /hpf Ur Squamous Epith Cells (0-4) /hpf Hyaline Casts (0-2) /lpf Urine Mucus (None) /hpf Salicylates <1.0 mg/dL Urine Opiates Screen (NotDetected) Ur Oxycodone Screen (NotDetected) Urine Methadone Screen (NotDetected) Ur Propoxyphene Screen (NotDetected) Acetaminophen <10.0 ug/mL Ur Barbiturates Screen (NotDetected) U Tricyclic Antidepress (NotDetected) Ur Phencyclidine Scrn (NotDetected) Ur Amphetamines Screen (NotDetected) U Methamphetamines Scrn (NotDetected) U Benzodiazepines Scrn (NotDetected) Urine Cocaine Screen (NotDetected) U Marijuana (THC) Screen (NotDetected) Serum Alcohol <10 mg/dL 07/26/22 07/26/22 07/26/22 Range/Units 13:00 13:00 13:00 WBC (3.8-10.6) k/uL RBC (3.80-5.40) m/uL Hgb (11.4-16.0) gm/dL Hct (34.0-46.0) % MCV (80.0-100.0) fL MCH (25.0-35.0) pg MCHC (31.0-37.0) g/dL RDW (11.5-15.5) % Plt Count (150-450) k/uL MPV Neutrophils % (Manual) % Band Neuts % (Manual) % Lymphocytes % (Manual) % Monocytes % (Manual) % Neutrophils # (Manual) (1.3-7.7) k/uL Lymphocytes # (Manual) (1.0-4.8) k/uL Monocytes # (Manual) (0-1.0) k/uL Nucleated RBCs (0-0) /100 WBC Manual Slide Review Poikilocytosis (manual PT (9.0-12.0) sec INR (<1.2) VBG pH (7.31-7.41) VBG pCO2 (37-51) mmHg VBG HCO3 (24-28) mmol/L Sodium (137-145) mmol/L Potassium (3.5-5.1) mmol/L Chloride (98-107) mmol/L Carbon Dioxide (22-30) mmol/L Anion Gap mmol/L BUN (7-17) mg/dL Creatinine (0.52-1.04) mg/dL Est GFR (CKD-EPI)AfAm (>60 ml/min/1.73 sqM) Est GFR (CKD-EPI)NonAf (>60 ml/min/1.73 sqM) Glucose (74-99) mg/dL POC Glucose (mg/dL) (70-110) mg/dL POC Glu Grapple Operator ID Lactic Ac Sepsis Rflx Plasma Lactic Acid Sudhir 2.2 H* (0.7-2.0) mmol/L Calcium (8.4-10.2) mg/dL Total Bilirubin (0.2-1.3) mg/dL Conjugated Bilirubin (0.0-0.3) mg/dL Unconjugated Bilirubin (0.0-1.1) mg/dL Delta Bilirubin (0.0-0.2) mg/dL AST (14-36) U/L ALT (4-34) U/L Alkaline Phosphatase (38-126) U/L Creatine Kinase 73 (30-135) U/L Troponin I <0.012 (0.000-0.034) ng/mL Total Protein (6.3-8.2) g/dL Albumin (3.5-5.0) g/dL Urine Color Urine Appearance (Clear) Urine pH (5.0-8.0) Ur Specific [place] (1.001-1.035) Urine Protein (Negative) Urine Glucose (UA) (Negative) Urine Ketones (Negative) Urine Blood (Negative) Urine Nitrite (Negative) Urine Bilirubin (Negative) Urine Urobilinogen (<2.0) mg/dL Ur Leukocyte Esterase (Negative) Urine RBC (0-5) /hpf Urine WBC (0-5) /hpf Ur Squamous Epith Cells (0-4) /hpf Hyaline Casts (0-2) /lpf Urine Mucus (None) /hpf Salicylates mg/dL Urine Opiates Screen (NotDetected) Ur Oxycodone Screen (NotDetected) Urine Methadone Screen (NotDetected) Ur Propoxyphene Screen (NotDetected) Acetaminophen ug/mL Ur Barbiturates Screen (NotDetected) U Tricyclic Antidepress (NotDetected) Ur Phencyclidine Scrn (NotDetected) Ur Amphetamines Screen (NotDetected) U Methamphetamines Scrn (NotDetected) U Benzodiazepines Scrn (NotDetected) Urine Cocaine Screen (NotDetected) U Marijuana (THC) Screen (NotDetected) Serum Alcohol mg/dL 07/26/22 07/26/22 07/26/22 Range/Units 13:10 13:55 14:33 WBC (3.8-10.6) k/uL RBC (3.80-5.40) m/uL Hgb (11.4-16.0) gm/dL Hct (34.0-46.0) % MCV (80.0-100.0) fL MCH (25.0-35.0) pg MCHC (31.0-37.0) g/dL RDW (11.5-15.5) % Plt Count (150-450) k/uL MPV Neutrophils % (Manual) % Band Neuts % (Manual) % Lymphocytes % (Manual) % Monocytes % (Manual) % Neutrophils # (Manual) (1.3-7.7) k/uL Lymphocytes # (Manual) (1.0-4.8) k/uL Monocytes # (Manual) (0-1.0) k/uL Nucleated RBCs (0-0) /100 WBC Manual Slide Review Poikilocytosis (manual PT (9.0-12.0) sec INR (<1.2) VBG pH (7.31-7.41) VBG pCO2 (37-51) mmHg VBG HCO3 (24-28) mmol/L Sodium (137-145) mmol/L Potassium (3.5-5.1) mmol/L Chloride (98-107) mmol/L Carbon Dioxide (22-30) mmol/L Anion Gap mmol/L BUN (7-17) mg/dL Creatinine (0.52-1.04) mg/dL Est GFR (CKD-EPI)AfAm (>60 ml/min/1.73 sqM) Est GFR (CKD-EPI)NonAf (>60 ml/min/1.73 sqM) Glucose (74-99) mg/dL POC Glucose (mg/dL) 134 H (70-110) mg/dL POC Glu Grapple Operator ID Emily Santacruz Lactic Ac Sepsis Rflx Y Plasma Lactic Acid Sudhir (0.7-2.0) mmol/L Calcium (8.4-10.2) mg/dL Total Bilirubin (0.2-1.3) mg/dL Conjugated Bilirubin (0.0-0.3) mg/dL Unconjugated Bilirubin (0.0-1.1) mg/dL Delta Bilirubin (0.0-0.2) mg/dL AST (14-36) U/L ALT (4-34) U/L Alkaline Phosphatase (38-126) U/L Creatine Kinase (30-135) U/L Troponin I (0.000-0.034) ng/mL Total Protein (6.3-8.2) g/dL Albumin (3.5-5.0) g/dL Urine Color Yellow Urine Appearance Cloudy H (Clear) Urine pH 5.5 (5.0-8.0) Ur Specific [place] 1.017 (1.001-1.035) Urine Protein 1+ H (Negative) Urine Glucose (UA) Negative (Negative) Urine Ketones 1+ H (Negative) Urine Blood Negative (Negative) Urine Nitrite Negative (Negative) Urine Bilirubin Negative (Negative) Urine Urobilinogen <2.0 (<2.0) mg/dL Ur Leukocyte Esterase Negative (Negative) Urine RBC 1 (0-5) /hpf Urine WBC 3 (0-5) /hpf Ur Squamous Epith Cells <1 (0-4) /hpf Hyaline Casts 3 H (0-2) /lpf Urine Mucus Few H (None) /hpf Salicylates mg/dL Urine Opiates Screen Not Detected (NotDetected) Ur Oxycodone Screen Not Detected (NotDetected) Urine Methadone Screen Not Detected (NotDetected) Ur Propoxyphene Screen Not Detected (NotDetected) Acetaminophen ug/mL Ur Barbiturates Screen Not Detected (NotDetected) U Tricyclic Antidepress Detected H (NotDetected) Ur Phencyclidine Scrn Not Detected (NotDetected) Ur Amphetamines Screen Not Detected (NotDetected) U Methamphetamines Scrn Not Detected (NotDetected) U Benzodiazepines Scrn Not Detected (NotDetected) Urine Cocaine Screen Not Detected (NotDetected) U Marijuana (THC) Screen Not Detected (NotDetected) Serum Alcohol mg/dL 07/26/22 Range/Units 15:36 WBC (3.8-10.6) k/uL RBC (3.80-5.40) m/uL Hgb (11.4-16.0) gm/dL Hct (34.0-46.0) % MCV (80.0-100.0) fL MCH (25.0-35.0) pg MCHC (31.0-37.0) g/dL RDW (11.5-15.5) % Plt Count (150-450) k/uL MPV Neutrophils % (Manual) % Band Neuts % (Manual) % Lymphocytes % (Manual) % Monocytes % (Manual) % Neutrophils # (Manual) (1.3-7.7) k/uL Lymphocytes # (Manual) (1.0-4.8) k/uL Monocytes # (Manual) (0-1.0) k/uL Nucleated RBCs (0-0) /100 WBC Manual Slide Review Poikilocytosis (manual PT (9.0-12.0) sec INR (<1.2) VBG pH 7.32 (7.31-7.41) VBG pCO2 40 (37-51) mmHg VBG HCO3 20 L (24-28) mmol/L Sodium (137-145) mmol/L Potassium (3.5-5.1) mmol/L Chloride (98-107) mmol/L Carbon Dioxide (22-30) mmol/L Anion Gap mmol/L BUN (7-17) mg/dL Creatinine (0.52-1.04) mg/dL Est GFR (CKD-EPI)AfAm (>60 ml/min/1.73 sqM) Est GFR (CKD-EPI)NonAf (>60 ml/min/1.73 sqM) Glucose (74-99) mg/dL POC Glucose (mg/dL) (70-110) mg/dL POC Glu Grapple Operator ID Lactic Ac Sepsis Rflx Plasma Lactic Acid Sudhir (0.7-2.0) mmol/L Calcium (8.4-10.2) mg/dL Total Bilirubin (0.2-1.3) mg/dL Conjugated Bilirubin (0.0-0.3) mg/dL Unconjugated Bilirubin (0.0-1.1) mg/dL Delta Bilirubin (0.0-0.2) mg/dL AST (14-36) U/L ALT (4-34) U/L Alkaline Phosphatase (38-126) U/L Creatine Kinase (30-135) U/L Troponin I (0.000-0.034) ng/mL Total Protein (6.3-8.2) g/dL Albumin (3.5-5.0) g/dL Urine Color Urine Appearance (Clear) Urine pH (5.0-8.0) Ur Specific [place] (1.001-1.035) Urine Protein (Negative) Urine Glucose (UA) (Negative) Urine Ketones (Negative) Urine Blood (Negative) Urine Nitrite (Negative) Urine Bilirubin (Negative) Urine Urobilinogen (<2.0) mg/dL Ur Leukocyte Esterase (Negative) Urine RBC (0-5) /hpf Urine WBC (0-5) /hpf Ur Squamous Epith Cells (0-4) /hpf Hyaline Casts (0-2) /lpf Urine Mucus (None) /hpf Salicylates mg/dL Urine Opiates Screen (NotDetected) Ur Oxycodone Screen (NotDetected) Urine Methadone Screen (NotDetected) Ur Propoxyphene Screen (NotDetected) Acetaminophen ug/mL Ur Barbiturates Screen (NotDetected) U Tricyclic Antidepress (NotDetected) Ur Phencyclidine Scrn (NotDetected) Ur Amphetamines Screen (NotDetected) U Methamphetamines Scrn (NotDetected) U Benzodiazepines Scrn (NotDetected) Urine Cocaine Screen (NotDetected) U Marijuana (THC) Screen (NotDetected) Serum Alcohol mg/dL - EKG Data -: EKG Interpreted by Me EKG Comments: 12-lead Electrocardiogram Interpretation Note EKG was reviewed and interpreted by myself. 12-lead ECG performed at 1317 is interpreted by me as revealing sinus tachycardia at a rate of 122 beats per minute. [place] is normal. NV interval is approximately 100-120 ms. QS duration is 87 ms, QTc is 429 ms.. There were no ST or T wave abnormalities to suggest myocardial ischemia or injury. R wave progression across the precordium was satisfactory. By my interpretation this EKG is non-diagnostic for acute ischemia. 12-lead Electrocardiogram Interpretation Note EKG was reviewed and interpreted by myself. 12-lead ECG performed at 1812 is interpreted by me as revealing sinus tachycardia at a rate of 137 beats per minute. [place] is normal. NV interval is 150 ms, QRS duration is 86 ms, QTc is 443 ms.. There were no ST or T wave abnormalities to suggest myocardial ischemia or injury. R wave progression across the precordium was satisfactory. By my interpretation this EKG is non-diagnostic for acute ischemia. Disposition Clinical Impression: Overdose, Altered mental status, Encounter for psychological evaluation Disposition: ADMITTED IP TO THIS HOSP Condition: Serious Time of Disposition: 15:25
--- NOTE | 2022-07-26 14:06 | CT ---
EXAMINATION TYPE: CT brain wo con DATE OF EXAM: 07/26/2022 COMPARISON: 06/27/2019 HISTORY: Altered mental status. CT DLP: 1102 mGycm. Automated Exposure Control for Dose Reduction was Utilized. TECHNIQUE: CT scan of the head is performed without contrast. FINDINGS: There is no acute intracranial hemorrhage, mass effect, or midline shift identified. The ventricles and sulci are within normal limits in size. The globes are intact and the visualized sin uses are clear. IMPRESSION: No acute intracranial hemorrhage, mass effect, or midline shift is seen.
[2022-07-26 14:17] LABS: Band Neutrophils % 1 %; Lymphocytes # (M) 1.43 k/uL (1.0-4.8); Neutrophils % (M) 82 %; Nucleated Red Blood Cells 0 /100 WBC (0-0); Total Cells Counted 100
[2022-07-26 14:22] LABS: Poikilocytosis (M) Present
[2022-07-26 15:05] LABS: Appearance,Urine Cloudy (Clear); Bilirubin,Urine Negative (Negative); Blood,Urine Negative (Negative); Color,Urine Yellow; Glucose,Urine (UA) Negative (Negative); Hyaline Casts,Urine 3 /lpf (0-2); Ketones,Urine 1+ (Negative); Leukocyte Esterase,Urine Negative (Negative); Mucus,Urine Few /hpf; Nitrite,Urine Negative (Negative); PH, Urine 5.5 (5.0-8.0); Protein,Urine 1+ (Negative); RBC,Urine 1 /hpf (0-5); Specific Gravity,Urine 1.017 (1.001-1.035); Squamous Epithelial Cell,Urine <1 /hpf (0-4); Urobilinogen,Urine <2.0 mg/dL (<2.0); WBC,Urine 3 /hpf (0-5)
[2022-07-26 15:07] LABS: Amphetamine Screen,Urine Not Detected (NotDetected); Barbiturate Screen,Urine Not Detected (NotDetected); Benzodiazepines Screen,Urine Not Detected (NotDetected); Cocaine Screen,Urine Not Detected (NotDetected); Methadone Screen, Urine Not Detected (NotDetected); Opiate Screen,Urine Not Detected (NotDetected); Oxycodone Screen, Urine Not Detected (NotDetected); Phencyclidine Screen,Urine Not Detected (NotDetected); Tricyclic Antidepressant,Urine Detected (NotDetected); Urn Cannabinoid Scrn Not Detected (NotDetected)
[2022-07-26] MEDS ORDERED: LORazepam 2 MG/ML INJ IV STA (15:19)
[2022-07-26] MEDS ORDERED: NALOXONE 0.4 MG/ML 1 ML VIAL IV PRN (15:51)
[2022-07-26] MEDS ORDERED: ONDANSETRON 4 MG/2 ML VIAL IVP PRN (15:51)
[2022-07-26 16:35] LABS: VBG PH 7.32 (7.31-7.41)
--- NOTE | 2022-07-26 20:16 | P.HPIM ---
History of Present Illness This is a pleasant 37 years old female with past medical history of bipolar disorder. History of marijuana abuse, opioids use disorder Patient was brought to the emergency room unresponsive with suspected medication overdose. Patient could not provide information because of her mental status. Her boyfriend Marquis was at bedside, he wasn't sure what happened exactly to come to emergency room. 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 As per Dr. Black from ER wasn't control was contacted and they recommended IV fluids and monitored QT interval. Also of note the patient was recently admitted to the psych unit on this facility 07/03-07/10 when she admitted herself voluntarily and treated voluntarily, as per noy she was discharged in stable condition and she followed up with [facility] office which increase her psych medications. As per noy patient does not follow up with PCP and she is not known to have medical problem as far as he knows, when asking him if she has history of seizure he declines such history. Patient herself is very sleepy and drowsy, however when we call her if she wakes up to verbal stimuli and sit up, she will with acetabular question telling her name and she could recognize Marquis as her boyfriend and she knew his name, however she goes back to sleep, butHarder to wake up and she could not provide more information or answer more questions. Patient has no involuntary movements. No neck rigidity. Boyfriend patient has no history of smoking alcohol or illicit tracts. On reviewing the records she has history of marijuana abuse Currently patient is tachycardic with heart rate about 138. She is afebrile. Blood pressure is stable. She is not tachypneic. Labs showed mild leukocytosis of 11.9. Rest of CBC is unremarkable. INR 1.0. The venous pH is normal 7.3 Sodium 136, rest of the BMP is unremarkable. Glucose slightly elevated 134. Mildly elevated lactic acid 2.2 came back to normal at 1.8. Enzymes not elevated. Troponin is negative. Urine analysis is negative for infection. Urine drug screen is positive for tricyclic antidepressant. Acetaminophen and salicylates are low as well as serum alcohol level EKG: Sinus tachycardia at [address]-T changes and QTC 429 Second EKG:Sinus tachycardia at [address]-T changes and QTC 443 CT of the brain: No acute intracranial hemorrhage, mass effect or midline shift Chest x-ray: Bilateral atelectasis. No acute cardiopulmonary process. in emergency room patient received Ativan and normal saline Review of Systems ROS unobtainable: due to mental status Past Medical History Past Medical History: No Reported History Additional Past Medical History / Comment(s): migraines History of Any Multi-Drug Resistant Organisms: None Reported Past Surgical History: Section Additional Past Surgical History / Comment(s): ovarian cyst removal Past Anesthesia/Blood Transfusion Reactions: No Reported Reaction Past Psychological History: Bipolar, Depression, PTSD Smoking Status: Former smoker Past Alcohol Use History: None Reported Past Drug Use History: Marijuana - Past Family History Father Family Medical History: Blood Disorder, Cancer, Diabetes Mellitus, Hypertension Additional Family Medical History / Comment(s): type 1 diabetes, pancreatic cancer Mother Family Medical History: Diabetes Mellitus, Hypertension, Seizure Disorder Additional Family Medical History / Comment(s): type 2 Medications and Allergies Home Medications Medication Instructions Recorded Confirmed Type DULoxetine HCL [Cymbalta] 60 mg PO BID 30 Days #60 cap 07/11/22 07/26/22 Rx QUEtiapine FUMARATE [SEROquel] 300 mg PO HS 07/26/22 07/26/22 History QUEtiapine [SEROquel] 50 mg PO DAILY 07/26/22 07/26/22 History busPIRone HCl [Buspar] 10 mg PO BID 07/26/22 07/26/22 History cloNIDine HCL 0.1 mg PO BID PRN 07/26/22 07/26/22 History Allergies Allergy/AdvReac Type Severity Reaction Status Date / Time haloperidol [From Haldol] Allergy Severe Facial & Verified 07/26/22 13:25 Tongue Swelling/Lethargic diphenhydramine AdvReac Hallucinati Verified 07/26/22 13:25 [From Triaminic Allergy] ons Physical Exam Vitals: Vital Signs Temp Pulse Resp BP Pulse Ox 07/26/22 18:35 97.4 F L 138 H 18 131/89 94 L 07/26/22 18:01 138 H 18 96 07/26/22 16:38 120 H 12 120/93 99 07/26/22 15:14 128 H 16 120/93 07/26/22 13:20 125 H 16 124/83 100 07/26/22 13:17 16 07/26/22 13:10 133 H 12 140/94 Intake and Output 07/26/22 07/26/22 07/26/22 06:59 14:59 22:59 Other: Weight 74.843 kg -GENERAL: The patient is very drowsy, she wakes up to verbal stimuli but go back to sleep shortly thereafter and her to wake up. She couldn't identify her boyfriend Marquis at bedside . Well developed, well nourished. HEENT: Pupils are round and equally reacting to light. EOMI. No scleral icterus. No conjunctival pallor. Normocephalic, atraumatic. No pharyngeal erythema. No thyromegaly. CARDIOVASCULAR: S1 and S2 present. No murmurs, rubs, or gallops. PULMONARY: Chest is clear to auscultation, no wheezing . no crackles. ABDOMEN: Soft, nontender, nondistended, normoactive bowel sounds. No palpable organomegaly. MUSCULOSKELETAL: No joint swelling or deformity. EXTREMITIES: No cyanosis, clubbing, or pedal edema. -NEUROLOGICAL: Cranial nerves are grossly intact, her examination is limited by mental status changes. Patient is very drowsy heart 2 weeks. Pupils are equal and reactive to light. Meningeal signs are absent, no neck rigidity. Patient moves all extremities equally. Gait deferred SKIN: No rashes. no petechiae. Results CBC & Chem 7: 07/26/22 13:00 07/26/22 13:00 Labs: Abnormal Lab Results - Last 24 Hours (Table) 07/26/22 07/26/22 07/26/22 Range/Units 13:00 13:00 13:00 WBC 11.9 H (3.8-10.6) k/uL Neutrophils # (Manual) 9.80 H (1.3-7.7) k/uL VBG HCO3 (24-28) mmol/L Sodium 136 L (137-145) mmol/L Carbon Dioxide 19 L (22-30) mmol/L Glucose 135 H (74-99) mg/dL POC Glucose (mg/dL) (70-110) mg/dL Plasma Lactic Acid Sudhir 2.2 H* (0.7-2.0) mmol/L Urine Appearance (Clear) Urine Protein (Negative) Urine Ketones (Negative) Hyaline Casts (0-2) /lpf Urine Mucus (None) /hpf U Tricyclic Antidepress (NotDetected) 07/26/22 07/26/22 07/26/22 Range/Units 13:10 14:33 15:36 WBC (3.8-10.6) k/uL Neutrophils # (Manual) (1.3-7.7) k/uL VBG HCO3 20 L (24-28) mmol/L Sodium (137-145) mmol/L Carbon Dioxide (22-30) mmol/L Glucose (74-99) mg/dL POC Glucose (mg/dL) 134 H (70-110) mg/dL Plasma Lactic Acid Sudhir (0.7-2.0) mmol/L Urine Appearance Cloudy H (Clear) Urine Protein 1+ H (Negative) Urine Ketones 1+ H (Negative) Hyaline Casts 3 H (0-2) /lpf Urine Mucus Few H (None) /hpf U Tricyclic Antidepress Detected H (NotDetected) Assessment and Plan Assessment: Altered mental status most likely secondary to medication overuse, rule out other causes Medication overdose most likely secondary to suicidal attempt Bipolar and other psych illnesses Substance abuse with marijuana History of opioids use disorder Plan: Continue with gentle hydration, D5 normal saline start thismine Telemetry monitoring Monitored QTC Neuro check 24 hours Psychiatric consult Suicidal precautions with sitter at bedside. Patient cannot leave AMA, if she decides to leave AMA she needs to be petitioned This patient mentation does not improve we'll consider further workup however the critical presentation is suspicious for medication overdose. Labs and medication were reviewed.. Continue same treatment. Continue with symptomatic treatment. Resume home medication. Monitor labs and vitals. DVT and GI prophylaxis. Further recommendations as per clinical course of the patient DVT prophylaxis: Subcutaneous heparin GI Prophylaxis: Pepcid Prognosis is guarded
[2022-07-26] MEDS: THIAMINE 100 MG in SODIUM CHLORIDE 0.9% 50 ML IVPB SCH (21:30)
[2022-07-26] MEDS: DEXTROSE 5%-0.9% NACL 1,000 ML IV SCH (21:30)
[2022-07-26 23:22] LABS: African American GFR (CKD) >90 (>60 ml/min/1.73 sqM); Anion Gap 9 mmol/L; Blood Urea Nitrogen 6 mg/dL (7-17); Calcium 8.4 mg/dL (8.4-10.2); Carbon Dioxide 20 mmol/L (22-30); Chloride 108 mmol/L (98-107); Glucose 102 mg/dL (74-99); Non-African American GFR(CKD) >90 (>60 ml/min/1.73 sqM); Potassium 3.6 mmol/L (3.5-5.1); Sodium 137 mmol/L (137-145)
[2022-07-26 23:58] LABS: HGB 11.6 gm/dL (11.4-16.0); Hypochromasia Slight; MCH 26.7 pg (25.0-35.0); MCHC 31.3 g/dL (31.0-37.0); MCV 85.4 fL (80.0-100.0); Mean Platelet Volume 9.7; Platelet Count 162 k/uL (150-450); RBC 4.33 m/uL (3.80-5.40); RDW 14.7 % (11.5-15.5); WBC 11.4 k/uL (3.8-10.6)
[2022-07-27 00:42] LABS: Band Neutrophils % 5 %; Eosinophils # (M) 0.23 k/uL (0-0.7); Lymphocytes # (M) 2.28 k/uL (1.0-4.8); Neutrophils % (M) 66 %; Nucleated Red Blood Cells 0 /100 WBC (0-0); Total Cells Counted 100
[2022-07-27] MEDS: THIAMINE 100 MG in SODIUM CHLORIDE 0.9% 50 ML IVPB SCH ×2 (08:23→20:25)
[2022-07-27] MEDS ORDERED: SODIUM CHLORIDE 0.9% 500 ML 500 ML IV ONE (08:23)
[2022-07-27] MEDS: PANTOPRAZOLE 40 MG/10 ML VIAL IV SCH (08:23)
[2022-07-27 08:35] LABS: Basophils % (A) 0 %; Eosinophils % (A) 0 %; HCT 34.6 % (34.0-46.0); HGB 11.1 gm/dL (11.4-16.0); Lymphocytes # (A) 0.8 k/uL (1.0-4.8); Lymphocytes % (A) 5 %; MCH 26.9 pg (25.0-35.0); MCV 83.9 fL (80.0-100.0); Mean Platelet Volume 9.7; Monocytes # (A) 1.6 k/uL (0-1.0); Monocytes % (A) 11 %; Neutrophils # (A) 12.1 k/uL (1.3-7.7); Neutrophils % (A) 80 %; Platelet Count 182 k/uL (150-450); RBC 4.12 m/uL (3.80-5.40); WBC 15.2 k/uL (3.8-10.6)
[2022-07-27 08:59] LABS: African American GFR (CKD) >90 (>60 ml/min/1.73 sqM); Anion Gap 8 mmol/L; Blood Urea Nitrogen 5 mg/dL (7-17); Calcium 8.5 mg/dL (8.4-10.2); Carbon Dioxide 22 mmol/L (22-30); Chloride 108 mmol/L (98-107); Glucose 90 mg/dL (74-99); Non-African American GFR(CKD) >90 (>60 ml/min/1.73 sqM); Potassium 3.9 mmol/L (3.5-5.1); Sodium 138 mmol/L (137-145)
[2022-07-27] MEDS ORDERED: SODIUM CHLORIDE 0.9% 1,000 ML IV ONE (12:39)
--- NOTE | 2022-07-27 13:04 | P.PN ---
Subjective This is a pleasant 37 years old female with past medical history of bipolar disorder. History of marijuana abuse, opioids use disorder Patient was brought to the emergency room unresponsive with suspected medication overdose. Patient could not provide information because of her mental status. Her boyfriend Marquis was at bedside, he wasn't sure what happened exactly to come to emergency room. 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 As per Dr. Black from ER wasn't control was contacted and they recommended IV fluids and monitored QT interval. Also of note the patient was recently admitted to the psych unit on this facility 07/03-07/10 when she admitted herself voluntarily and treated voluntarily, as per noy she was discharged in stable condition and she followed up with [facility] office which increase her psych medications. As per noy patient does not follow up with PCP and she is not known to have medical problem as far as he knows, when asking him if she has history of seizure he declines such history. Patient herself is very sleepy and drowsy, however when we call her if she wakes up to verbal stimuli and sit up, she will with acetabular question telling her name and she could recognize Marquis as her boyfriend and she knew his name, however she goes back to sleep, butHarder to wake up and she could not provide more information or answer more questions. Patient has no involuntary movements. No neck rigidity. Boyfriend patient has no history of smoking alcohol or illicit tracts. On reviewing the records she has history of marijuana abuse Currently patient is tachycardic with heart rate about 138. She is afebrile. Blood pressure is stable. She is not tachypneic. Labs showed mild leukocytosis of 11.9. Rest of CBC is unremarkable. INR 1.0. The venous pH is normal 7.3 Sodium 136, rest of the BMP is unremarkable. Glucose slightly elevated 134. Mildly elevated lactic acid 2.2 came back to normal at 1.8. Enzymes not elevated. Troponin is negative. Urine analysis is negative for infection. Urine drug screen is positive for tricyclic antidepressant. Acetaminophen and salicylates are low as well as serum alcohol level EKG: Sinus tachycardia at [address]-T changes and QTC 429 Second EKG:Sinus tachycardia at [address]-T changes and QTC 443 CT of the brain: No acute intracranial hemorrhage, mass effect or midline shift Chest x-ray: Bilateral atelectasis. No acute cardiopulmonary process. in emergency room patient received Ativan and normal saline 07/27/2022 Patient today is more awake and oriented to time place and person, she looks comfortable relaxed but that'll generally tired She denies any specific symptoms no chest pain headache weakness or numbness. No abdominal pain vomiting or diarrhea, no urinary complaints, no vaginal discharge or itching. patient still tachycardic with heart rates slightly better 117-125, blood pressure is borderline, she is on normal saline at 75 mL/h we will increase the rate to 1:30 also given 1.5 L of bolus. I checked with telemetry, no events but her heart rate is around 120 and goes up to 150 with movement. Patient conference to me that she was trying to go herself by taking extra pills including Seroquel and Cymbalta about 18-20 and the bottle. Subjective still at bedside. I talked to the patient she needs to go to psych unit after medical clearance and stabilization and she verbalized understanding and acceptance. TSH is normal at 1.1. Consent diagnosis is likely worse 11.4 up to 15.2. Labs and images and urinalysis are reviewed, no fever, no strong evidence of infection for now but will keep monitoring Objective - Vital Signs Vital signs: Vital Signs Temp 98.6 F 07/27/22 08:00 Pulse 125 H 07/27/22 12:00 Resp 16 07/27/22 12:00 BP 98/64 07/27/22 12:00 Pulse Ox 96 05/31/23 12:00 FiO2 Intake & Output 07/26/22 07/27/22 07/27/22 18:59 06:59 18:59 Intake Total 625 240 Balance 625 240 Weight 74.843 kg 77.5 kg Intake: IV 625 Dextrose 5%-0.9% NaCl 1, 525 000 ml @ 75 mls/hr IV . [id number] MATT Rx#:[id number] Thiamine 100 mg In Sodium 100 Chloride 0.9% 50 ml @ 100 mls/hr IVPB Q12HR MATT Rx#:[id number] Oral 240 Other: # Voids 1 - Exam GENERAL: The patient is alert and oriented x3, not in any acute distress. Well developed, well nourished. HEENT: Pupils are round and equally reacting to light. EOMI. No scleral icterus. No conjunctival pallor. Normocephalic, atraumatic. No pharyngeal erythema. No thyromegaly. CARDIOVASCULAR: S1 and S2 present. No murmurs, rubs, or gallops. PULMONARY: Chest is clear to auscultation, no wheezing or crackles. ABDOMEN: Soft, nontender, nondistended, normoactive bowel sounds. No palpable organomegaly. MUSCULOSKELETAL: No joint swelling or deformity. EXTREMITIES: No cyanosis, clubbing, or pedal edema. NEUROLOGICAL: Gross neurological examination did not reveal any focal deficits. SKIN: No rashes. no petechiae. - Labs CBC & Chem 7: 07/27/22 07:07 07/27/22 07:07 Labs: Abnormal Lab Results - Last 24 Hours (Table) 07/26/22 07/26/22 07/26/22 Range/Units 13:00 13:00 13:00 WBC 11.9 H (3.8-10.6) k/uL Hgb (11.4-16.0) gm/dL Neutrophils # (1.3-7.7) k/uL Neutrophils # (Manual) 9.80 H (1.3-7.7) k/uL Lymphocytes # (1.0-4.8) k/uL Monocytes # (0-1.0) k/uL VBG HCO3 (24-28) mmol/L Sodium 136 L (137-145) mmol/L Chloride (98-107) mmol/L Carbon Dioxide 19 L (22-30) mmol/L BUN (7-17) mg/dL Glucose 135 H (74-99) mg/dL POC Glucose (mg/dL) (70-110) mg/dL Plasma Lactic Acid Sudhir 2.2 H* (0.7-2.0) mmol/L Urine Appearance (Clear) Urine Protein (Negative) Urine Ketones (Negative) Hyaline Casts (0-2) /lpf Urine Mucus (None) /hpf U Tricyclic Antidepress (NotDetected) 07/26/22 07/26/22 07/26/22 Range/Units 13:10 14:33 15:36 WBC (3.8-10.6) k/uL Hgb (11.4-16.0) gm/dL Neutrophils # (1.3-7.7) k/uL Neutrophils # (Manual) (1.3-7.7) k/uL Lymphocytes # (1.0-4.8) k/uL Monocytes # (0-1.0) k/uL VBG HCO3 20 L (24-28) mmol/L Sodium (137-145) mmol/L Chloride (98-107) mmol/L Carbon Dioxide (22-30) mmol/L BUN (7-17) mg/dL Glucose (74-99) mg/dL POC Glucose (mg/dL) 134 H (70-110) mg/dL Plasma Lactic Acid Sudhir (0.7-2.0) mmol/L Urine Appearance Cloudy H (Clear) Urine Protein 1+ H (Negative) Urine Ketones 1+ H (Negative) Hyaline Casts 3 H (0-2) /lpf Urine Mucus Few H (None) /hpf U Tricyclic Antidepress Detected H (NotDetected) 07/26/22 07/26/22 07/27/22 Range/Units 22:57 22:57 07:07 WBC 11.4 H 15.2 H (3.8-10.6) k/uL Hgb 11.1 L (11.4-16.0) gm/dL Neutrophils # 12.1 H (1.3-7.7) k/uL Neutrophils # (Manual) 8.00 H (1.3-7.7) k/uL Lymphocytes # 0.8 L (1.0-4.8) k/uL Monocytes # 1.6 H (0-1.0) k/uL VBG HCO3 (24-28) mmol/L Sodium (137-145) mmol/L Chloride 108 H (98-107) mmol/L Carbon Dioxide 20 L (22-30) mmol/L BUN 6 L (7-17) mg/dL Glucose 102 H (74-99) mg/dL POC Glucose (mg/dL) (70-110) mg/dL Plasma Lactic Acid Sudhir (0.7-2.0) mmol/L Urine Appearance (Clear) Urine Protein (Negative) Urine Ketones (Negative) Hyaline Casts (0-2) /lpf Urine Mucus (None) /hpf U Tricyclic Antidepress (NotDetected) 07/27/22 Range/Units 07:07 WBC (3.8-10.6) k/uL Hgb (11.4-16.0) gm/dL Neutrophils # (1.3-7.7) k/uL Neutrophils # (Manual) (1.3-7.7) k/uL Lymphocytes # (1.0-4.8) k/uL Monocytes # (0-1.0) k/uL VBG HCO3 (24-28) mmol/L Sodium (137-145) mmol/L Chloride 108 H (98-107) mmol/L Carbon Dioxide (22-30) mmol/L BUN 5 L (7-17) mg/dL Glucose (74-99) mg/dL POC Glucose (mg/dL) (70-110) mg/dL Plasma Lactic Acid Sudhir (0.7-2.0) mmol/L Urine Appearance (Clear) Urine Protein (Negative) Urine Ketones (Negative) Hyaline Casts (0-2) /lpf Urine Mucus (None) /hpf U Tricyclic Antidepress (NotDetected) Assessment and Plan Assessment: Altered mental status most likely secondary to medication overuse, significantly resolved Medication overdose most likely secondary to suicidal attempt. Confirmed with The patient Leukocytosis dehydration and hypovolemia Bipolar and other psych illnesses Substance abuse with marijuana History of opioids use disorder Plan: Continue with gentle hydration, D5 normal saline sta continue with thiamine Telemetry monitoring Monitored QTC Monitored wbc and blood pressure and heart rate Psychiatric consult Suicidal precautions with sitter at bedside. Patient cannot leave AMA, if she decides to leave AMA she needs to be petitioned This patient mentation does not improve we'll consider further workup however the critical presentation is suspicious for medication overdose. Labs and medication were reviewed.. Continue same treatment. Continue with symptomatic treatment. Resume home medication. Monitor labs and vitals. DVT and GI prophylaxis. Further recommendations as per clinical course of the patient DVT prophylaxis: Subcutaneous heparin GI Prophylaxis: Pepcid Prognosis is guarded
--- NOTE | 2022-07-27 14:00 | P.CN ---
Psychiatric Consult - . Consult date: 07/27/22 Consult:: 07/27/22 11:36 IDENTIFYING DATA: Patient is a 37 yo cuacasian female, currently lives with her son and also with her boyfriend in an apartment. She has 4 kids total, is currently unemployed. HPI: Patient presented to the hospital through the ER yesterday after a overdose on her medications. The patient apparently had a list of her medications on a piece of paper on her when she presented. Poison control was contacted and patient was admitted medically for further treatment and monitoring. Patient was recently discharged from the mental health unit about 2 weeks ago. Patient was prescribed at that time Seroquel, BuSpar, Cymbalta and had a primary diagnosis of bipolar depression. Patient was seen today for psychiatric evaluation on the medical floors for consultation for her overdose suicide attempt. Nail Maker introduced himself to patient and patient was with a one-to-one sitter at her side. She claims that she was feeling overwhelmed and also had a "breaking point". She appeared to be fairly anxious and mildly agitated during the conversation. She claims that she overdosed on her medications and claims that "I wanted to take every single one of those pills to kill myself". She states that [place]. She claims that her ex-boyfriend may have called the police or ambulance to get her. She states that she took Seroquel BuSpar and also clonidine however does not know the quantity. She states that she has been having several stressors lately with regarding to her family not wanting to see her, finances and also dealing with her 3 children. States that she is feeling overwhelmed and hopeless. States that her sleep has been on and off, appetite as been fair. Claims that she is very anxious and also having depression at this time. She claims that she did go to [facility] to get her medications adjusted and had her Seroquel increased. She states that she still has suicidal thoughts, no intent or plan. Patient denies any homicidal ideations intent or plan. At this time patient denies any auditory or visual hallucinations. Patient denies any flight of ideas racing thoughts and increased in goal directed behavior. Patient admits to using smokes marijuana before bed, denying any other recreational drug use or cigarettes. PAST PSYCHIATRIC HISTORY: Patient states that she has a history of depression and bipolar disorder depression along with polysubstance abuse. Patient is currently taking Seroquel, BuSpar clonidine. She was last psychiatrically hospitalized 2 weeks ago on a mental health unit. Claims that her [facility] appointment intake was about a week ago with the nurse practitioner. States that she overdosed several times in the past in a suicide attempt. Past Medical History: No Reported History Additional Past Medical History / Comment(s): migraines History of Any Multi-Drug Resistant Organisms: None Reported Past Surgical History: Section Additional Past Surgical History / Comment(s): ovarian cyst removal Past Anesthesia/Blood Transfusion Reactions: No Reported Reaction Past Psychological History: Bipolar, Depression, PTSD Smoking Status: Former smoker Past Alcohol Use History: None Reported Past Drug Use History: Marijuana ALLERGIES: as per EMR CHEMICAL DEPENDENCY HISTORY: as per HPI FAMILY PSYCHIATRIC/SUBSTANCE USE HISTORY: Claims that her mother has schizophrenia, father has bipolar disorder. SOCIAL HISTORY: Patient was born and raised in [facility] [place] and also [place]. She states that she did complete high school and did some college. States that she does not have a legal history. She claims that she currently lives with her son and also her boyfriend at times in an apartment. She has 4 kids total. Is currently unemployed. MENTAL STATUS EXAM: General Appearance: Patient appears to be a tall, stated age is alert, directable, and attempts to cooperate. Appears to be frustrated, anxious, Patient appears to have poor hygiene and grooming. Behavior: Patient is seated without any agitated behavior. Frustrated and anxious. Speech: Patient's speech is fluent and nonpressured. Irritable tone. Mood/Affect: Patient reports their mood is depressed and anxious, affect is c ongruent and labile Suicidality/Homicidality: Patient denies having any homicidal ideation intent or plan. Admits to current suicidal thoughts, no intent or plan. Perceptions: Patient denies any visual hallucinations and denies any auditory hallucinations Though content/process: There is no evidence of any delusional thought content and thought process is linear and goal-directed.] Focused on her symptoms and stressors. Memory and concentration: AOX3, grossly intact for the purposes of this session. Can spell "WORLD" backwards Judgment and insight: poor/impulsive IMPRESSIONS: Bipolar disorder, current episode depressed Opioid use disorder currently in sustained remission Methamphetamine use disorder currently in sustained remission Cannabis use disorder PLAN: -At this time patient DOES meet criteria for inpatient psychiatric admission. -Would recommend the following medication changes/additions: will hold off on psychiatric meds until patient is admitted to the [facility] -Continue 1:1 sitter for safety until patient is safely transferred to [facility]. -Cannot leave AMA at this time. Patient will need a petition and certification if attempting to leave AMA. -When medically stable, patient is eligible for transfer to a psych bed when available. spoke with Dr Garvey about this and will give patient at least 24 hrs on the medical floors to treat overdose before patient can be cleared medically to come to MHU. -Communicated plan to patient's nurse -Psychiatry will sign off at this time -Please contact with any questions.
[2022-07-27] MEDS: DEXTROSE 5%-0.9% NACL 1,000 ML IV SCH ×2 (16:53→20:15)
[2022-07-27 18:42] LABS: Appearance,Urine Clear (Clear); Bilirubin,Urine Negative (Negative); Blood,Urine Moderate (Negative); Color,Urine Yellow; Glucose,Urine (UA) Negative (Negative); Ketones,Urine Negative (Negative); Leukocyte Esterase,Urine Negative (Negative); Mucus,Urine Rare /hpf; Nitrite,Urine Negative (Negative); PH, Urine 6.5 (5.0-8.0); Protein,Urine Trace (Negative); RBC,Urine 16 /hpf (0-5); Specific Gravity,Urine 1.008 (1.001-1.035); Squamous Epithelial Cell,Urine 1 /hpf (0-4); Urobilinogen,Urine <2.0 mg/dL (<2.0); WBC,Urine 3 /hpf (0-5)
[2022-07-28] MEDS ORDERED: SODIUM CHLORIDE 0.9% 1,000 ML IV ONE (06:47)
[2022-07-28 08:58] LABS: Basophils % (A) 0 %; Eosinophils # (A) 0.5 k/uL (0-0.7); Eosinophils % (A) 3 %; HCT 36.7 % (34.0-46.0); HGB 11.6 gm/dL (11.4-16.0); Lymphocytes # (A) 1.6 k/uL (1.0-4.8); Lymphocytes % (A) 10 %; MCH 26.8 pg (25.0-35.0); MCHC 31.6 g/dL (31.0-37.0); MCV 84.7 fL (80.0-100.0); Mean Platelet Volume 10.4; Monocytes % (A) 12 %; Neutrophils # (A) 12.2 k/uL (1.3-7.7); Neutrophils % (A) 72 %; Platelet Count 205 k/uL (150-450); RBC 4.34 m/uL (3.80-5.40); RDW 15.1 % (11.5-15.5); WBC 16.9 k/uL (3.8-10.6)
[2022-07-28 09:01] LABS: African American GFR (CKD) >90 (>60 ml/min/1.73 sqM); Anion Gap 10 mmol/L; Blood Urea Nitrogen 3 mg/dL (7-17); Calcium 8.5 mg/dL (8.4-10.2); Carbon Dioxide 19 mmol/L (22-30); Chloride 109 mmol/L (98-107); Glucose 121 mg/dL (74-99); Non-African American GFR(CKD) >90 (>60 ml/min/1.73 sqM); Potassium 3.9 mmol/L (3.5-5.1); Sodium 138 mmol/L (137-145)
[2022-07-28] MEDS: THIAMINE 100 MG in SODIUM CHLORIDE 0.9% 50 ML IVPB SCH ×2 (09:06→22:30)
[2022-07-28] MEDS: PANTOPRAZOLE 40 MG/10 ML VIAL IV SCH (09:06)
--- NOTE | 2022-07-28 09:19 | US ---
EXAMINATION TYPE: US venous doppler duplex LE DATE OF EXAM: 07/28/2022 9:08 AM COMPARISON: 06/20/2014 CLINICAL INDICATION: Female, 37 years old with history of leg swelling; leg swelling, h/o overdose an d ams SIDE PERFORMED: Bilateral TECHNIQUE: The lower extremity deep venous system is examined utilizing real time linear array sonog alexander with graded compression, doppler sonography and color-flow sonography. VESSELS IMAGED: Common Femoral Vein Deep Femoral Vein Greater Saphenous Vein * Femoral Vein Popliteal Vein Small Saphenous Vein * Proximal Calf Veins (* superficial vessels) Right Leg: Negative for DVT Left Leg: Negative for DVT IMPRESSION: Grayscale, color doppler, spectral doppler imaging performed of the deep veins of the lo wer extremities. There is normal flow, compressibility, vascular waveforms.
--- NOTE | 2022-07-28 10:53 | XR ---
EXAMINATION TYPE: XR chest 1V DATE OF EXAM: 07/28/2022 10:26 AM COMPARISON: Chest radiographs from 07/26/2022 TECHNIQUE: XR chest 1V Frontal view of the chest. CLINICAL INDICATION:Female, 37 years old with history of coughing and sob; FINDINGS: Lungs/Pleura: Left basilar airspace opacities. There is no evidence of pleural effusion, focal consol idation, or pneumothorax. Pulmonary vascularity: Unremarkable. Heart/mediastinum: Cardiomediastinal silhouette is unremarkable. Musculoskeletal: No acute osseous pathology. IMPRESSION: Left basilar airspace opacities concerning for pneumonia.
--- NOTE | 2022-07-28 12:57 | P.PN ---
Subjective This is a pleasant 37 years old female with past medical history of bipolar disorder. History of marijuana abuse, opioids use disorder Patient was brought to the emergency room unresponsive with suspected medication overdose. Patient could not provide information because of her mental status. Her boyfriend Marquis was at bedside, he wasn't sure what happened exactly to come to emergency room. 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 As per Dr. Black from ER wasn't control was contacted and they recommended IV fluids and monitored QT interval. Also of note the patient was recently admitted to the psych unit on this facility 07/03-07/10 when she admitted herself voluntarily and treated voluntarily, as per noy she was discharged in stable condition and she followed up with [facility] office which increase her psych medications. As per noy patient does not follow up with PCP and she is not known to have medical problem as far as he knows, when asking him if she has history of seizure he declines such history. Patient herself is very sleepy and drowsy, however when we call her if she wakes up to verbal stimuli and sit up, she will with acetabular question telling her name and she could recognize Marquis as her boyfriend and she knew his name, however she goes back to sleep, butHarder to wake up and she could not provide more information or answer more questions. Patient has no involuntary movements. No neck rigidity. Boyfriend patient has no history of smoking alcohol or illicit tracts. On reviewing the records she has history of marijuana abuse Currently patient is tachycardic with heart rate about 138. She is afebrile. Blood pressure is stable. She is not tachypneic. Labs showed mild leukocytosis of 11.9. Rest of CBC is unremarkable. INR 1.0. The venous pH is normal 7.3 Sodium 136, rest of the BMP is unremarkable. Glucose slightly elevated 134. Mildly elevated lactic acid 2.2 came back to normal at 1.8. Enzymes not elevated. Troponin is negative. Urine analysis is negative for infection. Urine drug screen is positive for tricyclic antidepressant. Acetaminophen and salicylates are low as well as serum alcohol level EKG: Sinus tachycardia at [address]-T changes and QTC 429 Second EKG:Sinus tachycardia at [address]-T changes and QTC 443 CT of the brain: No acute intracranial hemorrhage, mass effect or midline shift Chest x-ray: Bilateral atelectasis. No acute cardiopulmonary process. in emergency room patient received Ativan and normal saline 07/27/2022 Patient today is more awake and oriented to time place and person, she looks comfortable relaxed but that'll generally tired She denies any specific symptoms no chest pain headache weakness or numbness. No abdominal pain vomiting or diarrhea, no urinary complaints, no vaginal discharge or itching. patient still tachycardic with heart rates slightly better 117-125, blood pressure is borderline, she is on normal saline at 75 mL/h we will increase the rate to 1:30 also given 1.5 L of bolus. I checked with telemetry, no events but her heart rate is around 120 and goes up to 150 with movement. Patient conference to me that she was trying to go herself by taking extra pills including Seroquel and Cymbalta about 18-20 and the bottle. Subjective still at bedside. I talked to the patient she needs to go to psych unit after medical clearance and stabilization and she verbalized understanding and acceptance. TSH is normal at 1.1. Consent diagnosis is likely worse 11.4 up to 15.2. Labs and images and urinalysis are reviewed, no fever, no strong evidence of infection for now but will keep monitoring 07/28/2022 Patient remains awake and alert she feels tired, she is complaining of sore throat and coughing.. On examination she has peritonitis and enlarged tonsils on both sides, with some tenderness. patient is able to walk by herself but she is complaining of from tenderness in both calves, we ordered venous Doppler also ordered repeat chest x-ray which showed possible left lower lobe infiltrate suspicious for aspiration pneumonia, potential And Is Also Elevated and Patient Is Tachycardic with Leukocytosis Will Give Us with Normal Saline saw the patient on Zosyn. We'll ask for ENT evaluation for bilateral enlarged tonsils Objective - Vital Signs Vital signs: Vital Signs Temp 98.4 F 07/28/22 11:34 Pulse 91 07/28/22 11:34 Resp 16 07/28/22 11:34 BP 111/74 07/28/22 11:34 Pulse Ox 97 07/28/22 11:34 FiO2 Intake & Output 07/27/22 07/28/22 07/28/22 18:59 06:59 18:59 Intake Total 480 118 Balance 480 118 Intake: Oral 480 118 Other: # Voids 1 - Exam GENERAL: The patient is alert and oriented x3, not in any acute distress. Well developed, well nourished. HEENT: Pupils are round and equally reacting to light. EOMI. No scleral icterus. No conjunctival pallor. Normocephalic, atraumatic. No pharyngeal erythema. No thyromegaly. CARDIOVASCULAR: S1 and S2 present. No murmurs, rubs, or gallops. PULMONARY: Chest is clear to auscultation, no wheezing or crackles. ABDOMEN: Soft, nontender, nondistended, normoactive bowel sounds. No palpable organomegaly. MUSCULOSKELETAL: No joint swelling or deformity. EXTREMITIES: No cyanosis, clubbing, or pedal edema. NEUROLOGICAL: Gross neurological examination did not reveal any focal deficits. SKIN: No rashes. no petechiae. - Labs CBC & Chem 7: 07/28/22 08:00 07/28/22 08:00 Labs: Abnormal Lab Results - Last 24 Hours (Table) 07/27/22 07/27/22 07/28/22 Range/Units 07:07 18:00 08:00 WBC 16.9 H (3.8-10.6) k/uL Neutrophils # 12.2 H (1.3-7.7) k/uL Monocytes # 2.0 H (0-1.0) k/uL Chloride (98-107) mmol/L Carbon Dioxide (22-30) mmol/L BUN (7-17) mg/dL Glucose (74-99) mg/dL Procalcitonin 0.16 H (0.02-0.09) ng/mL Urine Protein Trace H (Negative) Urine Blood Moderate H (Negative) Urine RBC 16 H (0-5) /hpf Urine Mucus Rare H (None) /hpf 07/28/22 Range/Units 08:00 WBC (3.8-10.6) k/uL Neutrophils # (1.3-7.7) k/uL Monocytes # (0-1.0) k/uL Chloride 109 H (98-107) mmol/L Carbon Dioxide 19 L (22-30) mmol/L BUN 3 L (7-17) mg/dL Glucose 121 H (74-99) mg/dL Procalcitonin (0.02-0.09) ng/mL Urine Protein (Negative) Urine Blood (Negative) Urine RBC (0-5) /hpf Urine Mucus (None) /hpf Assessment and Plan Assessment: Altered mental status most likely secondary to medication overuse, significantly resolved Medication overdose most likely secondary to suicidal attempt. Confirmed with The patient Leukocytosis secondary to aspiration pneumonia dehydration and hypovolemia Bipolar and other psych illnesses Substance abuse with marijuana History of opioids use disorder Plan: Start Zosyn Bypasses were undetected. Throat Is negative. We'll consult ENT service for enlarged tonsils. Continue with intravenous hydration, D5 normal saline. Give bolus of 1 L of normal saline continue with thiamine Monitored wbc and blood pressure and heart rate Psychiatric consult Suicidal precautions with sitter at bedside. Patient will be discharged to psychiatric unit when medically stable Patient cannot leave AMA, if she decides to leave AMA she needs to be petitioned This patient mentation does not improve we'll consider further workup however the critical presentation is suspicious for medication overdose. Labs and medication were reviewed.. Continue same treatment. Continue with symptomatic treatment. Resume home medication. Monitor labs and vitals. DVT and GI prophylaxis. Further recommendations as per clinical course of the patient DVT prophylaxis: Subcutaneous heparin GI Prophylaxis: Pepcid Prognosis is guarded
[2022-07-28] MEDS: PIPERACILLIN-TAZOBACTAM 3.375 GM in SODIUM CHLORIDE 0.9% 100 ML IVPB SCH ×2 (14:00→20:13)
[2022-07-28] MEDS ORDERED: ACETAMINOPHEN TAB 325 MG TAB PO PRN (14:18)
[2022-07-28] MEDS ORDERED: ACETAMINOPHEN TAB 325 MG TAB PO STA (14:19)
--- NOTE | 2022-07-28 14:56 | CDI ---
Documentation Clarification Form Date: 07/28/2022 02:40:50 PM From: Ellen Jackson RN CCDS Phone: [phone] Admit Date: 07/26/2022 03:53:00 PM Patient Name: Ayleen Christina Visit Number: [id number] Discharge Date: ATTENTION: The Clinical Documentation Specialists (CDI) and [facility] Coding Staff appreciate your assistance in clarifying documentation. Please respond to the clarification below the line at the bottom and electronically sign. The CDI & [facility] Coding staff will review the response and follow-up if needed. Please note: Queries are made part of the Legal Health Record. If you have any questions, please contact the author of this message via ITS. Dr. Oshea E Sheet Your patient has the documented symptom of Altered Mental Status 07/26, H&P. Additional clarification regarding the etiology/cause of this symptom is requested. History/Risk Factors: 37 year old female was brought to the ED with concern of overdose. Medical History: Substance abuse with marijuana and Bipolar. 07/26, H&P Clinical Indicators: 08/26, ED note Neuro exam: Alert but not oriented. GCS is 11-12. Moving all 4 extremities. Exam difficult to obtain secondary to patients current neurological status likely from overdose. 07/26, Labs: Wbc 11.9; Neutrophils 9.80; Blood gas ph 7.32; pCo2 40; HCO3 20; NA 136; Carbon dioxide 19; Lactic acid 2.2; Toxicology detected Tricyclic Antidepress 07/26. CXR: Bibasilar atelectasis 07/[address]: no acute process. Treatment: 07/26 Narcan iv x 1; 0.9 NS 1L IV bolus; 0.9ns IV 100cchr d/c 07/26; Ativan IV x 1; 07/26 D5% Ns IV 130cchr; Thiamine IVPB Q12H; 07/27 0.9NS 1L IV Bolus; 07/28 0.9 NS IV Bolus x1. Neruo exam; Patient safety monitor. Please clarify the etiology of the symptom of Altered Mental Status: [ ] Toxic Metabolic Encephalopathy due to Medication overuse [ ] Other condition (please specify) [ ] Unable to determine (Template Last Revised: March 2020) Toxic Metabolic Encephalopathy due to Medication overuse MTDD
[2022-07-28] MEDS: DEXTROSE 5%-0.9% NACL 1,000 ML IV SCH ×2 (20:14→22:31)
[2022-07-28] MEDS ORDERED: guaiFENesin-DM 100-10MG/5ML 10 ML CUP PO PRN (21:05)
[2022-07-29] MEDS: PIPERACILLIN-TAZOBACTAM 3.375 GM in SODIUM CHLORIDE 0.9% 100 ML IVPB SCH ×3 (00:23→09:41)
[2022-07-29] MEDS: DEXTROSE 5%-0.9% NACL 1,000 ML IV SCH (06:07)
[2022-07-29 07:38] LABS: Basophils % (A) 0 %; Eosinophils # (A) 0.6 k/uL (0-0.7); Eosinophils % (A) 5 %; HCT 35.5 % (34.0-46.0); HGB 11.4 gm/dL (11.4-16.0); Lymphocytes # (A) 1.6 k/uL (1.0-4.8); Lymphocytes % (A) 14 %; MCH 27.4 pg (25.0-35.0); MCHC 32.2 g/dL (31.0-37.0); MCV 85.4 fL (80.0-100.0); Mean Platelet Volume 10.2; Monocytes # (A) 1.4 k/uL (0-1.0); Monocytes % (A) 12 %; Neutrophils # (A) 7.9 k/uL (1.3-7.7); Neutrophils % (A) 66 %; Platelet Count 235 k/uL (150-450); RBC 4.16 m/uL (3.80-5.40); RDW 15.1 % (11.5-15.5); WBC 11.9 k/uL (3.8-10.6)
[2022-07-29] MEDS: PANTOPRAZOLE 40 MG/10 ML VIAL IV SCH (09:29)
[2022-07-29] MEDS: THIAMINE 100 MG in SODIUM CHLORIDE 0.9% 50 ML IVPB SCH ×2 (09:29→09:32)
[2022-07-29 11:16] VITALS: RESP 18
[2022-07-29 12:06] VITALS: BP 135/93; PULSE 92; TEMP 98.3
--- NOTE | 2022-07-29 12:16 | P.DS ---
Providers Date of admission: 07/26/22 15:53 Attending physician: Dayo Garvey MD Consults: 07/26/22 15:51 Consult Physician Routine Consulting Provider: Blayne Layton Consult Reason/Comments: overdose Do you want consulting provider notified?: Yes 07/28/22 08:15 Consult Physician Routine Consulting Provider: Krytsian Hughes Consult Reason/Comments: enlarged tonsils and sore throat Do you want consulting provider notified?: Yes Primary care physician: Stated None Hospital Course: Diagnoses: Altered mental status most likely secondary to medication overuse, significantly resolved Medication overdose most likely secondary to suicidal attempt. Confirmed with The patient left lower lobe pneumonia, aspiration pneumonia is suspected Leukocytosis secondary to aspiration pneumonia dehydration and hypovolemia Bipolar and other psych illnesses Substance abuse with marijuana History of opioids use disorder Hospital course: This is a pleasant 37 years old female with past medical history of bipolar disorder. History of marijuana abuse, opioids use disorder Patient was brought to the emergency room unresponsive with suspected medication overdose. Patient eventually workup and states she overdose on Seroquel Cymbalta and BuSpar about 18-20 pills trying to kill herself. Her mentation is back to baseline and she is fully awake and oriented now and she follow command and has insight into her illness. Patient confirms to me that she tried to go herself with this medication because of her depression and stress in her life. Patient evaluated by psychiatrist and recommended inpatient admission to mental health unit. Patient informed and she told me she wants to go home but agrees to go to psych unit, she told me these to statements of the same time and because of uncertainty repetition and cert is signed and placed in the chart for the patient to be admitted to the psych unit as she is at great risk of self- harm and suicidal ideation and attempts. Also patient on admission was significantly tachycardic with borderline blood pressure she was severely dehydrated and she required aggressive intravenous hydration. Her blood pressure and heart rate improved after that and currently close to normal NORMAL. Clonidine is held upon discharge and can be assessed tomorrow and if his uptake can be restarted. Patient takes clonidine 0.1 mg by mouth twice a day at home which is on hold now Also patient was complaining of from respiratory symptoms, sore throat, coughing and some dyspnea especially with exertion. Chest x-ray showing left lower lobe infiltrate and suspicious for early infiltrate and pneumonia. She has worsening leukocytosis and throatcalcitonin was elevated. Patient was started on antibiotic Zosyn and she showed interval improvement and her symptoms improved significantly. Also on examination she has evidence of pharyngitis and bilateral tonsillar enlargement, there were more tender than yesterday , but on today's exam there are nontender. ENT consult was requested and patient can follow up with Dr. Shore as an outpatient in 1 week as she was instructed and she is agreeable. Other than that she denies any other neurological, GI or urinary symptoms. Problems and management plan were discussed with the patient and he verbalized understanding and acceptance Patient was found stable and can be discharged to the psych unit today. Patient was instructed to follow up with PCP within one week and patient agrees Patient was instructed to follow up with ENT physician Dr. Shore in one week after discharge and she is agreeable Physical exam -Gen: patient is a AAOx3, no distress. Both tonsils enlarged, no exudate with pharyngitis CVS: S1-S2, RRR, no murmur -Lungs: B/L CTA, no wheezing. Mild left basal crepitation Abdomen: soft, no distention, no tenderness, positive bowel sounds Extremity: no leg edema or induration Time spent more than 35 minutes Patient Condition at Discharge: Serious Plan - Discharge Summary Discharge Rx Participant: Yes New Discharge Prescriptions: New Acetaminophen Tab [Tylenol] 325 mg PO Q6HR PRN tab PRN Reason: Fever And/ Or Pain Amoxic-Pot Clav 875-125Mg [Augmentin 875-125] 1 tab PO Q12HR 5 Days #10 tab guaiFENesin-DM 100-10MG/5ML [Robitussin DM] 10 ml PO Q6HR PRN ml PRN Reason: Cough Discontinued cloNIDine HCL 0.1 mg PO BID PRN PRN Reason: Anxiety No Action QUEtiapine [SEROquel] 50 mg PO DAILY DULoxetine HCL [Cymbalta] 60 mg PO BID 30 Days #60 cap busPIRone HCl [Buspar] 10 mg PO BID QUEtiapine FUMARATE [SEROquel] 300 mg PO HS Discharge Medication List DULoxetine HCL [Cymbalta] 60 mg PO BID 30 Days #60 cap 07/11/22 [Rx] QUEtiapine FUMARATE [SEROquel] 300 mg PO HS 07/26/22 [History] QUEtiapine [SEROquel] 50 mg PO DAILY 07/26/22 [History] busPIRone HCl [Buspar] 10 mg PO BID 07/26/22 [History] Acetaminophen Tab [Tylenol] 325 mg PO Q6HR PRN tab 07/29/22 [Rx] Amoxic-Pot Clav 875-125Mg [Augmentin 875-125] 1 tab PO Q12HR 5 Days #10 tab 07/29/22 [Rx] guaiFENesin-DM 100-10MG/5ML [Robitussin DM] 10 ml PO Q6HR PRN ml 07/29/22 [Rx] Follow up Appointment(s)/Referral(s): None,Stated [Primary Care Provider] - 1-2 days Activity/Diet/Wound Care/Special Instructions: we recommend to check your chest x-ray in one week with your doctor please regular diet activity is as tolerated
== END 2022-07-29 15:02 | disposition psychiatric hospital, planned readmission (93) | DRG 917 ==
LOC: EC 13:00 → 3SCARD 15:53
PROVIDERS: ADMIT Internal Medicine; ATTEND Internal Medicine
DX: T43.592A Poisoning by other antipsychotics and neuroleptics, intentional self-harm, initial encounter (principal); G92.8 Other toxic encephalopathy; J69.0 Pneumonitis due to inhalation of food and vomit; J98.11 Atelectasis; Z20.822 Contact with and (suspected) exposure to COVID-19; F12.10 Cannabis abuse, uncomplicated; R00.0 Tachycardia, unspecified; F31.9 Bipolar disorder, unspecified; E86.0 Dehydration; G43.909 Migraine, unspecified, not intractable, without status migrainosus; E86.1 Hypovolemia; J35.1 Hypertrophy of tonsils; Z79.899 Other long term (current) drug therapy; Z88.8 Allergy status to other drugs, medicaments and biological substances; Z87.891 Personal history of nicotine dependence
CPT/HCPCS: 36415; 70450; 71045; 80048; 80053; 80143; 80179; 80306; 80320; 81001; 82248; 82550; 82803; 83605; 84145; 84443; 84484; 84703; 85025; 85610; 87636; 87651; 93005; 93970; 94760; 96361; 96374; 96375; 99291

== ENCOUNTER 2022-07-29 15:21 | Inpatient (IN) | payer MEDICAID ==
[2022-07-29] MEDS ORDERED: MAG HYDROX/AL HYDROX/SIMETH 30 ML CUP PO PRN (15:26)
[2022-07-29] MEDS ORDERED: MAGNESIUM HYDROXIDE 2,400 MG/10 ML CUP PO PRN (15:26)
[2022-07-29] MEDS ORDERED: guaiFENesin-DM 100-10MG/5ML 10 ML CUP PO PRN (15:29)
[2022-07-29] MEDS ORDERED: LORazepam 2 MG/ML INJ IM PRN (15:30)
[2022-07-29] MEDS: LORazepam 1 MG TAB PO PRN (16:08)
[2022-07-29] MEDS: busPIRone HCl 10 MG TAB PO SCH (21:11)
[2022-07-29] MEDS: AMOXIC-POT CLAV 875-125MG 1 EACH TAB PO SCH (21:11)
[2022-07-29] MEDS: DULoxetine HCL 60 MG CAPSULE.DR PO SCH (21:35)
[2022-07-29] MEDS: QUEtiapine 100 MG TAB PO SCH (21:37)
[2022-07-30] MEDS: ACETAMINOPHEN TAB 325 MG TAB PO PRN ×2 (07:00→16:57)
[2022-07-30] MEDS: LORazepam 1 MG TAB PO PRN ×3 (07:01→21:31)
[2022-07-30] MEDS: DULoxetine HCL 60 MG CAPSULE.DR PO SCH ×2 (08:18→21:31)
[2022-07-30] MEDS: QUEtiapine 50 MG TAB PO SCH (08:18)
[2022-07-30] MEDS: busPIRone HCl 10 MG TAB PO SCH ×2 (08:19→21:31)
[2022-07-30] MEDS: AMOXIC-POT CLAV 875-125MG 1 EACH TAB PO SCH ×2 (08:19→21:31)
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
[2022-07-30] MEDS: QUEtiapine 100 MG TAB PO SCH (21:31)
--- NOTE | 2022-07-31 00:11 | P.PN ---
Progress Note - Text Progress Note Date: 07/31/22 Attempted to see the patient at 1999 on 07/30. The patient refused to be seen or be evaluated.
[2022-07-31] MEDS: ACETAMINOPHEN TAB 325 MG TAB PO PRN ×2 (05:17→14:43)
[2022-07-31] MEDS: LORazepam 1 MG TAB PO PRN ×3 (05:17→20:56)
[2022-07-31] MEDS: busPIRone HCl 10 MG TAB PO SCH ×2 (08:50→20:52)
[2022-07-31] MEDS: AMOXIC-POT CLAV 875-125MG 1 EACH TAB PO SCH ×2 (08:50→20:52)
[2022-07-31] MEDS: QUEtiapine 50 MG TAB PO SCH (08:50)
[2022-07-31] MEDS: DULoxetine HCL 60 MG CAPSULE.DR PO SCH ×2 (08:50→20:55)
[2022-07-31 09:27] LABS: Chol/HDL Ratio 4.72 Ratio; LDL Cholesterol,Calculated 112.9 mg/dL
--- NOTE | 2022-07-31 11:46 | P.PN ---
Subjective Progress Note Date: 07/31/22 Principal diagnosis: IMPRESSIONS: Depressive disorder unspecified generalized anxiety disorder PTSD by history Borderline personality disorder Subjective/subjective data: Patient reports that she is feeling better Patient states that she is getting a lot of cooperation from her boyfriend who plans to put her medications in a lock box and will be dispensing Bowen Mukherjee medications She says that she has started feeling much more positive She denies any auditory or visual hallucinations She says that her thoughts are not racing anymore and that she feels back to her normal self She denies any suicidal or homicidal ideations or plans Mental status examination: MENTAL STATUS EXAM: General Appearance: Patient patient appears in no acute distress she is quite cooperative directable, and attempts to cooperate. Pleasant overall, Patient appears to have fair hygiene and grooming. Behavior: Patient is seated without any agitated behavior. Pleasant. Cooperative. Speech: Patient's speech is fluent and nonpressured. Appears to have a mild lisp Mood/Affect: Patient reports their mood is a little depressed, affect is congruent and constricted. Suicidality/Homicidality: Patient denies having any homicidal ideation intent or plan. Denies any suicidal ideations intent or plan Perceptions: Patient denies any visual hallucinations and denies any auditory hallucinations Though content/process: There is no evidence of any delusional thought content and thought process is linear and goal-directed. Memory and concentration: AOX3, grossly intact for the purposes of this session. Can spell "WORLD" backwards Judgment and insight: poor STRENGTHS/WEAKNESSES: strength is that patient is resilient. Weakness is that patient has poor judgment and is impulsive and a history of self abuse behavior INTELLECT: dull average IMPRESSIONS: Depressive disorder unspecified generalized anxiety disorder PTSD by history Borderline personality disorder PLAN: -Patient is admitted under voluntary status to [facility]HU for stabilization of psychiatric symptoms and safety. Patient has signed adult voluntary form and medication consent and is placed in patient's chart. -Medications : Patient's current medications include clonidine 0.1 mg twice a day when necessary buspirone 10 mg twice a day Seroquel 300 mg at bedtime Seroquel 50 mg daily when necessary Cymbalta 60 mg twice a day -Patient was informed of the risks, benefits and side effects of the medication and patient verbally consented to taking the medications. Patient signed med consent form and was placed in chart. -Internal Medicine consult to perform medical evaluation and physical. -NRT - not needed as patient does not smoke -SW on board for discharge planning. Encourage patient to participate in groups to work on coping skills. Will Hooper M.D. 07/31/2022 Objective - Vital Signs Vital signs: Vital Signs Temp 97.7 F 07/31/22 05:40 Pulse 88 07/31/22 11:39 Resp 14 07/31/22 05:40 BP 112/73 07/31/22 11:39 Pulse Ox 96 07/30/22 06:50 FiO2 Intake & Output 07/30/22 07/31/22 07/31/22 18:59 06:59 18:59 Weight 83 kg - Labs Labs: Abnormal Lab Results - Last 24 Hours (Table) 07/30/22 Range/Units 07:02 HDL Cholesterol 37.70 L mg/dL
[2022-07-31] MEDS: QUEtiapine 100 MG TAB PO SCH (20:52)
[2022-08-01] MEDS: ACETAMINOPHEN TAB 325 MG TAB PO PRN (06:34)
[2022-08-01] MEDS: LORazepam 1 MG TAB PO PRN ×4 (07:50→20:28)
[2022-08-01] MEDS: QUEtiapine 50 MG TAB PO SCH (07:50)
[2022-08-01] MEDS: busPIRone HCl 10 MG TAB PO SCH ×2 (07:51→20:26)
[2022-08-01] MEDS: AMOXIC-POT CLAV 875-125MG 1 EACH TAB PO SCH ×2 (07:51→20:26)
[2022-08-01] MEDS: DULoxetine HCL 60 MG CAPSULE.DR PO SCH ×2 (07:51→20:26)
--- NOTE | 2022-08-01 10:50 | P.PN ---
Progress Note - Text Progress Note Date: 08/01/22 Interval History: Patient was seen talking with another patient in the lounge and was directable and agreeable to speak with teletypewriter operator in the office. Patient was fairly focused on discharge today. She states that her boyfriend is going to help her manage her medications and had bought a safe for them at home. She claims that she regretted what she did and states that he was very impulsive of hurt overdose. He spoke about the reality of what had occurred and also her safety. She states that she is doing better in terms of her mood today, continues to have anxiety. She requested to have her BuSpar increased. States that she is sleeping fairly at nighttime. Claims have a fair appetite at this time. She continues to have fairly superficial insight and judgment. At this time patient denies any suicidal or homical ideations, intent or plan. Patient denies any auditory, visual hallucinations and denies any paranoia or delusions. Patient denies any side effects from the medications and has been compliant with meds. Mental Status Exam: General Appearance: Patient patient appears in no acute distress she is quite cooperative, dressed in street clothing. directable, and attempts to cooperate. Superficial at times. Pleasant overall Behavior: Patient is seated without any agitated behavior. Superficially cooperative. Speech: Patient's speech is fluent and nonpressured. Appears to have a mild lisp Mood/Affect: Patient reports their mood is a little anxious, affect is congruent Suicidality/Homicidality: Patient denies having any homicidal ideation intent or plan. Denies any suicidal ideations intent or plan Perceptions: Patient denies any visual hallucinations and denies any auditory hallucinations Though content/process: There is no evidence of any delusional thought content and thought process is linear and goal-directed. minimizing her suicide attempt. Memory and concentration: AOX3, grossly intact for the purposes of this session Judgment and insight: poor/impuslive, improving mildly IMPRESSIONS: Depressive disorder unspecified generalized anxiety disorder overdose of medications PTSD by history Borderline personality disorder Plan: -Patient continues to meet criteria for inpatient psychiatric admission for symptom stabilization and safety. Patient has signed [adult voluntary form and] [medication consent] and was placed in patient's chart. -Medications: increase buspar 20 mg bid for anxiety, continue with Seroquel 50 mg daily +300 mg daily at bedtime for mood stabilization/insomnia. Cymbalta 60 mg twice a day for anxiety/mood. -When necessary Ativan and Haldol for agitation/aggression. -NRT - not needed as patient does not smoke -SW on board for discharge planning. Encouraged the patient to participate in milieu. will need to coordinate today with cm and SW good plan for dispo given patients recurrent and recent hospitalization and severe overdose attempt and to help manage her medications at home. possible discharge in 2-3 days.
[2022-08-01 12:16] LABS: HCT 38.1 % (34.0-46.0); HGB 12.4 gm/dL (11.4-16.0); MCHC 32.4 g/dL (31.0-37.0); MCV 83.3 fL (80.0-100.0); Mean Platelet Volume 10.3; Platelet Count 306 k/uL (150-450); RBC 4.58 m/uL (3.80-5.40); RDW 14.8 % (11.5-15.5); WBC 10.9 k/uL (3.8-10.6)
[2022-08-01 12:22] LABS: ALT 24 U/L (4-34); AST 26 U/L (14-36); African American GFR (CKD) >90 (>60 ml/min/1.73 sqM); Albumin 4.1 g/dL (3.5-5.0); Alkaline Phosphatase 50 U/L (38-126); Anion Gap 12 mmol/L; Blood Urea Nitrogen 10 mg/dL (7-17); Calcium 9.5 mg/dL (8.4-10.2); Carbon Dioxide 24 mmol/L (22-30); Chloride 101 mmol/L (98-107); Glucose 82 mg/dL (74-99); Non-African American GFR(CKD) >90 (>60 ml/min/1.73 sqM); Potassium 4.6 mmol/L (3.5-5.1); Sodium 137 mmol/L (137-145); Total Bilirubin 0.4 mg/dL (0.2-1.3); Total Protein 7.4 g/dL (6.3-8.2)
[2022-08-01 13:53] LABS: Lymphocytes # (M) 3.38 k/uL (1.0-4.8); Monocytes # (M) 0.65 k/uL (0-1.0); Neutrophils # (M) 6.87 k/uL (1.3-7.7); Neutrophils % (M) 63 %; Nucleated Red Blood Cells 0 /100 WBC (0-0); Total Cells Counted 100
[2022-08-01 13:57] LABS: Anisocytosis (M) Present; Poikilocytosis (M) Present
[2022-08-01] MEDS: QUEtiapine 100 MG TAB PO SCH (20:26)
[2022-08-02] MEDS: ACETAMINOPHEN TAB 325 MG TAB PO PRN (02:00)
[2022-08-02 06:53] VITALS: BP 118/74; PULSE 110; RESP 17; TEMP 98
[2022-08-02] MEDS: AMOXIC-POT CLAV 875-125MG 1 EACH TAB PO SCH (08:19)
[2022-08-02] MEDS: DULoxetine HCL 60 MG CAPSULE.DR PO SCH (08:19)
[2022-08-02] MEDS: LORazepam 1 MG TAB PO PRN (08:19)
[2022-08-02] MEDS: busPIRone HCl 10 MG TAB PO SCH (08:19)
[2022-08-02] MEDS: QUEtiapine 50 MG TAB PO SCH (08:19)
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
[2022-08-02] MEDS ORDERED: busPIRone HCl 10 MG TAB PO SCH (16:00)
== END 2022-08-02 12:06 | disposition home or self-care (01) | DRG 753 ==
LOC: 3MHU 15:21
PROVIDERS: ADMIT Psychiatry & Neurology Psychiatry; ATTEND Psychiatry & Neurology Psychiatry
DX: F31.9 Bipolar disorder, unspecified (principal); F41.1 Generalized anxiety disorder; F43.10 Post-traumatic stress disorder, unspecified; F60.3 Borderline personality disorder; G47.00 Insomnia, unspecified; T43.592A Poisoning by other antipsychotics and neuroleptics, intentional self-harm, initial encounter; Z79.899 Other long term (current) drug therapy; Z28.310 Unvaccinated for COVID-19; Z53.29 Procedure and treatment not carried out because of patient's decision for other reasons; Z91.410 Personal history of adult physical and sexual abuse; Z71.89 Other specified counseling; Z91.52 Personal history of nonsuicidal self-harm; Z88.8 Allergy status to other drugs, medicaments and biological substances
CPT/HCPCS: 80053; 80061; 83036; 84443; 85025

== ENCOUNTER 2022-09-02 04:44 | Emergency (ER) | payer OTHER ==
[2022-09-02 04:52] VITALS: TEMP 99
[2022-09-02] MEDS ORDERED: ASPIRIN 81 MG PO STA (05:46)
--- NOTE | 2022-09-02 05:48 | ED ---
General Adult HPI - General Chief complaint: Anxiety Stated complaint: Chest Pain Time Seen by Provider: 09/02/22 05:39 Source: patient Mode of arrival: wheelchair - History of Present Illness Initial comments: Dictation was produced using archify dictation software. please excuse any grammatical, word or spelling errors. Chief Complaint: 37-year-old female presents with chest pressure History of Present Illness: [id number] female presents with chest pressure. Patient has a history of anxiety disorder. She decided to stop taking her anxiety medications. She takes multiple medications for anxiety. Patient had a which she describes as a severe panic attack yesterday. States that the lasted for an hour. During the event she fractured some chest pressure. States that packet tach resolved however she still having persistent chest pressure. Pain is nonradiating. No associated with diaphoresis or nausea. The ROS documented in this emergency department record has been reviewed and confirmed by me. Those systems with pertinent positive or negative responses have been documented in the HPI. All other systems are other negative and/or noncontributory. - Related Data Previous Rx's Medication Instructions Recorded Amoxic-Pot Clav 875-125Mg 1 each PO Q12HR 5 Days #10 tab 08/02/22 [Augmentin 875-125] DULoxetine HCL [Cymbalta] 60 mg PO BID 14 Days #28 cap 08/02/22 QUEtiapine FUMARATE [SEROquel] 300 mg PO HS 14 Days #14 tab 08/02/22 QUEtiapine [SEROquel] 50 mg PO DAILY 14 Days #14 tab 08/02/22 busPIRone HCl [Buspar] 20 mg PO TID 14 Days #84 tab 08/02/22 Allergies Allergy/AdvReac Type Severity Reaction Status Date / Time haloperidol [From Haldol] Allergy Severe Facial & Verified 09/02/22 04:52 Tongue Swelling/Lethargic diphenhydramine AdvReac Hallucinati Verified 09/02/22 04:52 [From Triaminic Allergy] ons Review of Systems ROS Statement: Those systems with pertinent positive or pertinent negative responses have been documented in the HPI. ROS Other: All systems not noted in ROS Statement are negative. Past Medical History Past Medical History: No Reported History Additional Past Medical History / Comment(s): migraines History of Any Multi-Drug Resistant Organisms: None Reported Past Surgical History: Section Additional Past Surgical History / Comment(s): ovarian cyst removal Past Anesthesia/Blood Transfusion Reactions: No Reported Reaction Past Psychological History: Bipolar, Depression, PTSD Smoking Status: Former smoker Past Alcohol Use History: None Reported Past Drug Use History: Marijuana - Past Family History Father Family Medical History: Blood Disorder, Cancer, Diabetes Mellitus, Hypertension Additional Family Medical History / Comment(s): type 1 diabetes, pancreatic cancer Mother Family Medical History: Diabetes Mellitus, Hypertension, Seizure Disorder Additional Family Medical History / Comment(s): type 2 General Exam - General Exam Comments Initial Comments: PHYSICAL EXAM: General Impression: Alert and oriented x3, not in acute distress HEENT: Normocephalic atraumatic, extra-ocular movements intact, pupils equal and reactive to light bilaterally, mucous membranes moist. Cardiovascular: Heart regular rate and rhythm Chest: Able to complete full sentences, no retractions, no tachypnea Abdomen: abdomen soft, non-tender, non-distended, no organomegaly Musculoskeletal: Pulses present and equal in all extremities, no peripheral edema Motor: no focal deficits noted Neurological: CN II-XII grossly intact, no focal motor or sensory deficits noted Skin: Intact with no visualized rashes Psych: Normal affect and mood Course Vital Signs 09/02/22 09/02/22 09/02/22 04:47 06:00 08:32 Temperature 99.0 F Pulse Rate 99 83 86 Pulse Rate [ 80 Layout Artist ] Respiratory 28 H 20 20 Rate Blood Pressure 129/90 143/96 120/83 O2 Sat by Pulse 99 98 99 Oximetry EKG Findings - EKG Comments: EKG Findings:: My EKG interpretation: Ventricular rate 81, sinus rhythm,. 189, QRS 85, QTc 438. No MI prolongation, no QTC prolongation, no ST or T-wave changes noted.. Overall, this EKG is unremarkable Medical Decision Making - Medical Decision Making Was pt. sent in by a medical professional or institution (, PA, CHEMICAL DEPENDENCY COUNSELOR, urgent care, hospital, or fdc...) When possible be specific @ -No Did you speak to anyone other than the patient for history (EMS, parent, family, police, friend...)? What history was obtained from this source @ - at the bedside states that patient has chest pain Did you review nursing and triage notes (agree or disagree)? Why? @ -I reviewed and agree with nursing and triage notes Were old charts reviewed (outside hosp., previous admission, EMS record, old EKG, old radiological studies, urgent care reports/EKG's, fdc records)? Report findings @ -No old charts were reviewed Differential Diagnosis (chest pain, altered mental status, abdominal pain women, abdominal pain men, vaginal bleeding, musculoskeletal, weakness, fever, dyspnea, syncope, headache, dizziness, GI bleed, back pain, seizure, CVA, palpatations, mental health)? @ -Differential Chest Pain: Stable Angina, Unstable Angina, STEMI, NSTEMI Aortic Dissection, Pneumothorax, Musculoskeletal, Esophageal Spasm GERD, Cholecystitis, Pancreatitis, Zoster, this is not meant to be an all-inclusive list. EKG interpreted by me (3pts min.). @ -As above X-rays interpreted by me (1pt min.). @ -Chest x-ray shows no acute processes CT interpreted by me (1pt min.). @ -None done U/S interpreted by me (1pt. min.). @ -None done What testing was considered but not performed or refused? (CT, X-rays, U/S, labs)? Why? @ -None What meds were considered but not given or refused? Why? @ -None Did you discuss the management of the patient with other professionals (professionals i.e. , PA, CHEMICAL DEPENDENCY COUNSELOR, lab, RT, psych nurse, manager social responsibility, home stager, teacher, correctional program officer, upper caser)? Give summary @ -No Was smoking cessation discussed for >3mins.? @ -No Was critical care preformed (if so, how long)? @ -No Were there social determinants of health that impacted care today? How? (Homelessness, low income, unemployed, alcoholism, drug addiction, transportation, low edu. Level, literacy, decrease access to med. care, nursing home, rehab)? @ -No Was there de-escalation of care discussed even if they declined (Discuss DNR or withdrawal of care, Hospice)? DNR status @ -No What co-morbidities impacted this encounter? (DM, HTN, Smoking, COPD, CAD, Cancer, CVA, ARF, Chemo, Hep., AIDS, mental health diagnosis, sleep apnea, morbid obesity)? @ -None Was patient admitted / discharged? Hospital course, mention meds given and route, prescriptions, significant lab abnormalities, going to OR and other pertinent info. @ -37-year-old female presents emergency department with chest pain. She had a panic attack which she feels is what triggered her chest pain. Vital signs stable. EKG is unremarkable. Laboratory evaluation obtained. CBC, coag panel, metabolic panel is unremarkable. Troponin is negative. Disposition options were discussed with patient it was recommended she be admitted for cardiac monitoring and cardiology consultation. She did not like that plan. She is agreeable for her second troponin and discharge. serial troponins negative. patient discharged Undiagnosed new problem with uncertain prognosis? @ -No Drug Therapy requiring intensive monitoring for toxicity (Heparin, Nitro, Insulin, Cardizem)? @ -No Were any procedures done? @ -No Diagnosis/symptom? Acute, or Chronic, or Acute on Chronic? Uncomplicated (without systemic symptoms) or Complicated (systemic symptoms)? @ -1. Anxiety reaction Side effects of treatment? @ -No Exacerbation, Progression, or Severe Exacerbation? @ -No Poses a threat to life or bodily function? How? (Chest pain, [place], [place], pneumonia, PE, COPD, DKA, ARF, appy, cholecystitis, CVA, Diverticulitis, Homicidal, S uicidal, threat to staff... and all critical care pts) @ -No - Lab Data Result diagrams: 09/02/22 06:11 09/02/22 06:11 Lab Results 09/02/22 09/02/22 09/02/22 Range/Units 06:11 06:11 06:11 WBC 14.2 H (3.8-10.6) k/uL RBC 4.69 (3.80-5.40) m/uL Hgb 12.5 (11.4-16.0) gm/dL Hct 39.8 (34.0-46.0) % MCV 84.9 (80.0-100.0) fL MCH 26.7 (25.0-35.0) pg MCHC 31.4 (31.0-37.0) g/dL RDW 15.3 (11.5-15.5) % Plt Count 288 (150-450) k/uL MPV 9.1 Neutrophils % 68 % Lymphocytes % 14 % Monocytes % 15 % Eosinophils % 2 % Basophils % 0 % Neutrophils # 9.7 H (1.3-7.7) k/uL Lymphocytes # 1.9 (1.0-4.8) k/uL Monocytes # 2.1 H (0-1.0) k/uL Eosinophils # 0.3 (0-0.7) k/uL Basophils # 0.0 (0-0.2) k/uL Hypochromasia Slight PT 10.4 (9.0-12.0) sec INR 1.0 (<1.2) APTT 24.7 (22.0-30.0) sec Sodium 139 (137-145) mmol/L Potassium 4.0 (3.5-5.1) mmol/L Chloride 106 (98-107) mmol/L Carbon Dioxide 23 (22-30) mmol/L Anion Gap 10 mmol/L BUN 12 (7-17) mg/dL Creatinine 0.60 (0.52-1.04) mg/dL Est GFR (CKD-EPI)AfAm >90 (>60 ml/min/1.73 sqM) Est GFR (CKD-EPI)NonAf >90 (>60 ml/min/1.73 sqM) Glucose 87 (74-99) mg/dL Calcium 9.0 (8.4-10.2) mg/dL Troponin I (0.000-0.034) ng/mL 09/02/22 09/02/22 Range/Units 06:11 07:49 WBC (3.8-10.6) k/uL RBC (3.80-5.40) m/uL Hgb (11.4-16.0) gm/dL Hct (34.0-46.0) % MCV (80.0-100.0) fL MCH (25.0-35.0) pg MCHC (31.0-37.0) g/dL RDW (11.5-15.5) % Plt Count (150-450) k/uL MPV Neutrophils % % Lymphocytes % % Monocytes % % Eosinophils % % Basophils % % Neutrophils # (1.3-7.7) k/uL Lymphocytes # (1.0-4.8) k/uL Monocytes # (0-1.0) k/uL Eosinophils # (0-0.7) k/uL Basophils # (0-0.2) k/uL Hypochromasia PT (9.0-12.0) sec INR (<1.2) APTT (22.0-30.0) sec Sodium (137-145) mmol/L Potassium (3.5-5.1) mmol/L Chloride (98-107) mmol/L Carbon Dioxide (22-30) mmol/L Anion Gap mmol/L BUN (7-17) mg/dL Creatinine (0.52-1.04) mg/dL Est GFR (CKD-EPI)AfAm (>60 ml/min/1.73 sqM) Est GFR (CKD-EPI)NonAf (>60 ml/min/1.73 sqM) Glucose (74-99) mg/dL Calcium (8.4-10.2) mg/dL Troponin I <0.012 <0.012 (0.000-0.034) ng/mL Disposition Clinical Impression: Chest pain Disposition: HOME SELF-CARE Instructions (If sedation given, give patient instructions): Generalized Anxiety Disorder (ED) Is patient prescribed a controlled substance at d/c from ED?: No Referrals: None,Stated [Primary Care Provider] - 1-2 days
[2022-09-02 06:30] LABS: Basophils % (A) 0 %; Eosinophils # (A) 0.3 k/uL (0-0.7); Eosinophils % (A) 2 %; HCT 39.8 % (34.0-46.0); HGB 12.5 gm/dL (11.4-16.0); Hypochromasia Slight; Lymphocytes # (A) 1.9 k/uL (1.0-4.8); Lymphocytes % (A) 14 %; MCH 26.7 pg (25.0-35.0); MCHC 31.4 g/dL (31.0-37.0); MCV 84.9 fL (80.0-100.0); Mean Platelet Volume 9.1; Monocytes # (A) 2.1 k/uL (0-1.0); Monocytes % (A) 15 %; Neutrophils # (A) 9.7 k/uL (1.3-7.7); Neutrophils % (A) 68 %; Platelet Count 288 k/uL (150-450); RBC 4.69 m/uL (3.80-5.40); RDW 15.3 % (11.5-15.5); WBC 14.2 k/uL (3.8-10.6)
[2022-09-02 06:35] VITALS: RESP 20
[2022-09-02 06:41] LABS: African American GFR (CKD) >90 (>60 ml/min/1.73 sqM); Anion Gap 10 mmol/L; Blood Urea Nitrogen 12 mg/dL (7-17); Carbon Dioxide 23 mmol/L (22-30); Chloride 106 mmol/L (98-107); Glucose 87 mg/dL (74-99); Non-African American GFR(CKD) >90 (>60 ml/min/1.73 sqM); Sodium 139 mmol/L (137-145)
[2022-09-02 06:43] LABS: Partial Thromboplastin Time 24.7 sec (22.0-30.0); Prothrombin Time 10.4 sec (9.0-12.0)
--- NOTE | 2022-09-02 07:03 | XR ---
EXAMINATION TYPE: XR chest 2V DATE OF EXAM: 09/02/2022 6:32 AM COMPARISON: Chest radiographs from 07/28/2022 TECHNIQUE: XR chest 2V Frontal and lateral views of the chest. CLINICAL INDICATION:Female, 37 years old with history of chest pressure; FINDINGS: Lungs/Pleura: There is no evidence of pleural effusion, focal consolidation, or pneumothorax. Azygou s fissure noted. Pulmonary vascularity: Unremarkable. Heart/mediastinum: Cardiomediastinal silhouette is unremarkable. Musculoskeletal: No acute osseous pathology. IMPRESSION: No acute cardiopulmonary disease/process.
[2022-09-02] MEDS ORDERED: KETOROLAC 15 MG/ML 1 ML VIAL IVP STA (07:05)
[2022-09-02 08:33] VITALS: BP 120/83; PULSE 86
== END 2022-09-02 08:37 | disposition home or self-care (01) ==
LOC: EC 04:44
DX: F41.9 Anxiety disorder, unspecified (principal); R07.89 Other chest pain; F12.90 Cannabis use, unspecified, uncomplicated; Z87.891 Personal history of nicotine dependence; Z88.8 Allergy status to other drugs, medicaments and biological substances
CPT/HCPCS: 36415; 93005; 80048; 84484; 85025; 85610; 85730; 71046; 99284; 96374; J1885

== ENCOUNTER 2023-05-16 16:30 | Emergency (ER) | payer OTHER ==
[2023-05-16 16:35] VITALS: RESP 18; TEMP 97.5
--- NOTE | 2023-05-16 17:21 | ED ---
Headache HPI - General Chief Complaint: Headache Stated Complaint: Headache Time Seen by Provider: 05/16/23 17:19 Source: patient, RN notes reviewed Mode of arrival: ambulatory Limitations: no limitations - History of Present Illness Initial Comments: Patient is a 38-year-old female presented to the ER with a chief complaint of a headache. She states she has had a headache for the past 4 days. She also is endorsing mild congestion and cough. Report decreased appetite. Denies fevers or chills. Denies nausea vomiting, double blurry vision. She states earlier today she was starting to have shortness of breath with exertion. Denies chest pain, abdominal pain, constipation/diarrhea. She does believe she has a urinary tract infection as she is having dark urine and does not drink enough water throughout the day. Denies any peripheral edema. Denies history of blood clots or smoking. - Related Data Previous Rx's Medication Instructions Recorded Amoxic-Pot Clav 875-125Mg 1 each PO Q12HR 5 Days #10 tab 08/02/22 [Augmentin 875-125] DULoxetine HCL [Cymbalta] 60 mg PO BID 14 Days #28 cap 08/02/22 QUEtiapine FUMARATE [SEROquel] 300 mg PO HS 14 Days #14 tab 08/02/22 QUEtiapine [SEROquel] 50 mg PO DAILY 14 Days #14 tab 08/02/22 busPIRone HCl [Buspar] 20 mg PO TID 14 Days #84 tab 08/02/22 Nitrofurantoin Monohyd/M-Cryst 100 mg PO Q12HR #14 cap 05/16/23 [Macrobid] Allergies Allergy/AdvReac Type Severity Reaction Status Date / Time haloperidol [From Haldol] Allergy Severe Facial & Verified 05/16/23 16:35 Tongue Swelling/Lethargic diphenhydramine AdvReac Hallucinati Verified 05/16/23 16:35 [From Triaminic Allergy] ons Review of Systems ROS Statement: Those systems with pertinent positive or pertinent negative responses have been documented in the HPI. ROS Other: All systems not noted in ROS Statement are negative. Past Medical History Past Medical History: No Reported History Additional Past Medical History / Comment(s): migraines History of Any Multi-Drug Resistant Organisms: None Reported Past Surgical History: Section Additional Past Surgical History / Comment(s): ovarian cyst removal Past Anesthesia/Blood Transfusion Reactions: No Reported Reaction Past Psychological History: Bipolar, Depression, PTSD Smoking Status: Former smoker Past Alcohol Use History: Occasional Past Drug Use History: Marijuana - Past Family History Father Family Medical History: Blood Disorder, Cancer, Diabetes Mellitus, Hypertension Additional Family Medical History / Comment(s): type 1 diabetes, pancreatic cancer Mother Family Medical History: Diabetes Mellitus, Hypertension, Seizure Disorder Additional Family Medical History / Comment(s): type 2 General Exam Limitations: no limitations General appearance: alert, in no apparent distress Head exam: Present: atraumatic, normocephalic, normal inspection Eye exam: Present: normal appearance, PERRL, EOMI. Absent: scleral icterus, conjunctival injection, periorbital swelling Pupils: Present: normal accommodation ENT exam: Present: normal exam, normal oropharynx, mucous membranes moist Neck exam: Present: normal inspection. Absent: tenderness, meningismus, lymphadenopathy Respiratory exam: Present: normal lung sounds bilaterally. Absent: respiratory distress, wheezes, rales, rhonchi, stridor Cardiovascular Exam: Present: regular rate, normal rhythm, normal heart sounds. Absent: systolic murmur, diastolic murmur, rubs, gallop, clicks GI/Abdominal exam: Present: soft, tenderness (suprapubic), normal bowel sounds Neurological exam: Present: alert, oriented X3, CN II-XII intact Psychiatric exam: Present: normal affect, normal mood Skin exam: Present: warm, dry, intact, normal color. Absent: rash Course Vital Signs 05/16/23 05/16/23 16:31 20:38 Temperature 97.5 F L Pulse Rate 84 62 Respiratory 18 18 Rate Blood Pressure 128/84 117/70 O2 Sat by Pulse 100 96 Oximetry Medical Decision Making - Medical Decision Making Was pt. sent in by a medical professional or institution (, PA, ADMINISTRATION CLERK, urgent care, hospital, or custodial...) When possible be specific @ -No Did you speak to anyone other than the patient for history (EMS, parent, family, police, friend...)? What history was obtained from this source @ -No Did you review nursing and triage notes (agree or disagree)? Why? @ -I reviewed and agree with nursing and triage notes Were old charts reviewed (outside hosp., previous admission, EMS record, old E KG, old radiological studies, urgent care reports/EKG's, custodial records)? Report findings @ -No old charts were reviewed Differential Diagnosis (chest pain, altered mental status, abdominal pain women, abdominal pain men, vaginal bleeding, weakness, fever, dyspnea, syncope, headache, dizziness, GI bleed, back pain, seizure, CVA, palpatations, mental health, musculoskeletal)? @ -Differential Headache:Migraine, tension, cluster, carbon monoxide, central venous thrombosis, pension karma temporal arteritis, acute closure glaucoma, intercranial hemorrhage, mastoiditis, sinusitis, head injury, this is not meant to be an all-inclusive list. EKG interpreted by me (3pts min.). @ -As above X-rays interpreted by me (1pt min.). @ -Chest x-ray interpreted by me negative for acute cardiopulmonary process. CT interpreted by me (1pt min.). @ -None done U/S interpreted by me (1pt. min.). @ -None done What testing was considered but not performed or refused? (CT, X-rays, U/S, labs)? Why? @ -None What meds were considered but not given or refused? Why? @ -None Did you discuss the management of the patient with other professionals (professionals i.e. , PA, ADMINISTRATION CLERK, lab, RT, psych nurse, licensed social worker, thread tool grinder set up operator, teacher, trust officer, case monitor)? Give summary @ -No Was smoking cessation discussed for >3mins.? @ -No Was critical care preformed (if so, how long)? @ -No Were there social determinants of health that impacted care today? How? (Homelessness, low income, unemployed, alcoholism, drug addiction, transportation, low edu. Level, literacy, decrease access to med. care, intermediate, rehab)? @ -No Was there de-escalation of care discussed even if they declined (Discuss DNR or withdrawal of care, Hospice)? DNR status @ -No What co-morbidities impacted this encounter? (DM, HTN, Smoking, COPD, CAD, Cancer, CVA, ARF, Chemo, Hep., AIDS, mental health diagnosis, sleep apnea, m orbid obesity)? @ -None Was patient admitted / discharged? Hospital course, mention meds given and route, prescriptions, significant lab abnormalities, going to OR and other pertinent info. @ -Discharge. Patient is a 38-year-old female presenting to the ER with a chief complaint of a headache and exertional dyspnea. History and physical exam completed. Vitals stable. Patient in no signs of acute distress and nontoxic- appearing. Lung sounds clear to auscultation bilaterally. No acute neur ological findings on exam. Labs obtained significant for white blood cell count 13.4 otherwise unremarkable. D-dimer and troponin negative. Urine showing concern of infection. Influenza, RSV, COVID-negative. Patient received symptomatic treatment and control in the ER. EKG without acute evidence of infarct or ischemia. Chest x-ray interpreted by me negative for acute cardiopulmonary process. Results discussed with patient, all questions answered. Macrobid prescribed. Advised close follow-up with PCP. Strict return parameters discussed. Patient discharged stable condition with follow-up to PCP patient expressed understanding and agreement with care plan. Case discussed with ED attending, Dr. Portillo. Undiagnosed new problem with uncertain prognosis? @ -No Drug Therapy requiring intensive monitoring for toxicity (Heparin, Nitro, Insulin, Cardizem)? @ -No Were any procedures done? @ -No Diagnosis/symptom? @ -UTI/headache Acute, or Chronic, or Acute on Chronic? @ -Acute Uncomplicated (without systemic symptoms) or Complicated (systemic symptoms)? @ -Uncomplicated Side effects of treatment? @ -No Exacerbation, Progression, or Severe Exacerbation? @ -No Poses a threat to life or bodily function? How? (Chest pain, [place], [place], pneumonia, PE, COPD, DKA, ARF, appy, cholecystitis, CVA, Diverticulitis, Homicidal, Suicidal, threat to staff... and all critical care pts) @ -No - Lab Data Result diagrams: 05/16/23 17:27 05/16/23 17:27 Lab Results 05/16/23 05/16/23 05/16/23 Range/Units 17:27 17:27 17:27 WBC 13.4 H (3.8-10.6) k/uL RBC 5.16 (3.80-5.40) m/uL Hgb 13.8 (11.4-16.0) gm/dL Hct 42.8 (34.0-46.0) % MCV 82.9 (80.0-100.0) fL MCH 26.7 (25.0-35.0) pg MCHC 32.2 (31.0-37.0) g/dL RDW 14.7 (11.5-15.5) % Plt Count 280 (150-450) k/uL MPV 10.7 Neutrophils % (Manual) 74 % Lymphocytes % (Manual) 20 % Monocytes % (Manual) 4 % Eosinophils % (Manual) 2 % Neutrophils # (Manual) 9.92 H (1.3-7.7) k/uL Lymphocytes # (Manual) 2.68 (1.0-4.8) k/uL Monocytes # (Manual) 0.54 (0-1.0) k/uL Eosinophils # (Manual) 0.27 (0-0.7) k/uL Nucleated RBCs 0 (0-0) /100 WBC Manual Slide Review Performed Large Platelets Present Hypochromasia Slight PT (10.0-12.5) sec INR (<1.2) APTT (22.0-30.0) sec D-Dimer (<0.60) mg/L FEU Sodium 138 (137-145) mmol/L Potassium 4.3 (3.5-5.1) mmol/L Chloride 105 (98-107) mmol/L Carbon Dioxide 26 (22-30) mmol/L Anion Gap 7 mmol/L BUN 11 (7-17) mg/dL Creatinine 0.67 (0.52-1.04) mg/dL Est GFR (CKD-EPI)AfAm >90 (>60 ml/min/1.73 sqM) Est GFR (CKD-EPI)NonAf >90 (>60 ml/min/1.73 sqM) Glucose 92 (74-99) mg/dL Calcium 9.1 (8.4-10.2) mg/dL Total Bilirubin 0.3 (0.2-1.3) mg/dL AST 22 (14-36) U/L ALT 13 (4-34) U/L Alkaline Phosphatase 45 (38-126) U/L Troponin I (0.000-0.034) ng/mL Total Protein 6.9 (6.3-8.2) g/dL Albumin 4.1 (3.5-5.0) g/dL Urine Color Light Yellow Urine Appearance Cloudy H (Clear) Urine pH 6.0 (5.0-8.0) Ur Specific [place] 1.022 (1.001-1.035) Urine Protein Trace H (Negative) Urine Glucose (UA) Negative (Negative) Urine Ketones Negative (Negative) Urine Blood Moderate H (Negative) Urine Nitrite Negative (Negative) Urine Bilirubin Negative (Negative) Urine Urobilinogen <2.0 (<2.0) mg/dL Ur Leukocyte Esterase Large H (Negative) Urine RBC 20 H (0-5) /hpf Urine WBC 56 H (0-5) /hpf Ur Squamous Epith Cells 41 H (0-4) /hpf Urine Bacteria Occasional H (None) /hpf Urine Mucus Rare H (None) /hpf Influenza Type A (PCR) (Not Detectd) Influenza Type B (PCR) (Not Detectd) RSV (PCR) (Not Detectd) SARS-CoV-2 (PCR) (Not Detectd) 05/16/23 05/16/23 05/16/23 Range/Units 17:27 18:55 18:55 WBC (3.8-10.6) k/uL RBC (3.80-5.40) m/uL Hgb (11.4-16.0) gm/dL Hct (34.0-46.0) % MCV (80.0-100.0) fL MCH (25.0-35.0) pg MCHC (31.0-37.0) g/dL RDW (11.5-15.5) % Plt Count (150-450) k/uL MPV Neutrophils % (Manual) % Lymphocytes % (Manual) % Monocytes % (Manual) % Eosinophils % (Manual) % Neutrophils # (Manual) (1.3-7.7) k/uL Lymphocytes # (Manual) (1.0-4.8) k/uL Monocytes # (Manual) (0-1.0) k/uL Eosinophils # (Manual) (0-0.7) k/uL Nucleated RBCs (0-0) /100 WBC Manual Slide Review Large Platelets Hypochromasia PT 10.5 (10.0-12.5) sec INR 0.9 (<1.2) APTT 21.5 L (22.0-30.0) sec D-Dimer 0.23 (<0.60) mg/L FEU Sodium (137-145) mmol/L Potassium (3.5-5.1) mmol/L Chloride (98-107) mmol/L Carbon Dioxide (22-30) mmol/L Anion Gap mmol/L BUN (7-17) mg/dL Creatinine (0.52-1.04) mg/dL Est GFR (CKD-EPI)AfAm (>60 ml/min/1.73 sqM) Est GFR (CKD-EPI)NonAf (>60 ml/min/1.73 sqM) Glucose (74-99) mg/dL Calcium (8.4-10.2) mg/dL Total Bilirubin (0.2-1.3) mg/dL AST (14-36) U/L ALT (4-34) U/L Alkaline Phosphatase (38-126) U/L Troponin I <0.012 (0.000-0.034) ng/mL Total Protein (6.3-8.2) g/dL Albumin (3.5-5.0) g/dL Urine Color Urine Appearance (Clear) Urine pH (5.0-8.0) Ur Specific [place] (1.001-1.035) Urine Protein (Negative) Urine Glucose (UA) (Negative) Urine Ketones (Negative) Urine Blood (Negative) Urine Nitrite (Negative) Urine Bilirubin (Negative) Urine Urobilinogen (<2.0) mg/dL Ur Leukocyte Esterase (Negative) Urine RBC (0-5) /hpf Urine WBC (0-5) /hpf Ur Squamous Epith Cells (0-4) /hpf Urine Bacteria (None) /hpf Urine Mucus (None) /hpf Influenza Type A (PCR) Not Detected (Not Detectd) Influenza Type B (PCR) Not Detected (Not Detectd) RSV (PCR) Not Detected (Not Detectd) SARS-CoV-2 (PCR) Not Detected (Not Detectd) - EKG Data -: EKG Interpreted by Me EKG Comments: EKG taken at 19: 56 shows a sinus rhythm with no acute ST segment or T wave abnormalities. Ventricular rate 60, NV interval 161, QRS duration 94, QT/QTc 407/408. - Radiology Data Radiology results: report reviewed, image reviewed Disposition Clinical Impression: Headache, UTI (urinary tract infection) Disposition: HOME SELF-CARE Condition: Stable Instructions (If sedation given, give patient instructions): Acute Headache (ED) Additional Instructions: Complete full course of antibiotics. Follow-up with PCP. Return to the ER for any new or worsening concerns. Prescriptions: Nitrofurantoin Monohyd/M-Cryst [Macrobid] 100 mg PO Q12HR #14 cap Is patient prescribed a controlled substance at d/c from ED?: No Referrals: None,Stated [Primary Care Provider] - 1-2 days Time of Disposition: 20:04
[2023-05-16] MEDS: ONDANSETRON 4 MG/2 ML VIAL IVP STA (17:44)
[2023-05-16] MEDS: KETOROLAC 15 MG/ML 1 ML VIAL IVP STA (17:44)
[2023-05-16] MEDS: methylPREDNISolone SOD SUCCI 125 MG/2 ML VIAL IV STA (17:44)
[2023-05-16] MEDS: SODIUM CHLORIDE 0.9% 1,000 ML IV STA (17:44)
[2023-05-16 18:03] LABS: HCT 42.8 % (34.0-46.0); HGB 13.8 gm/dL (11.4-16.0); Hypochromasia Slight; MCH 26.7 pg (25.0-35.0); MCHC 32.2 g/dL (31.0-37.0); MCV 82.9 fL (80.0-100.0); Mean Platelet Volume 10.7; Platelet Count 280 k/uL (150-450); RBC 5.16 m/uL (3.80-5.40); RDW 14.7 % (11.5-15.5); WBC 13.4 k/uL (3.8-10.6)
[2023-05-16 18:08] LABS: ALT 13 U/L (4-34); AST 22 U/L (14-36); African American GFR (CKD) >90 (>60 ml/min/1.73 sqM); Albumin 4.1 g/dL (3.5-5.0); Alkaline Phosphatase 45 U/L (38-126); Anion Gap 7 mmol/L; Blood Urea Nitrogen 11 mg/dL (7-17); Calcium 9.1 mg/dL (8.4-10.2); Carbon Dioxide 26 mmol/L (22-30); Chloride 105 mmol/L (98-107); Glucose 92 mg/dL (74-99); Non-African American GFR(CKD) >90 (>60 ml/min/1.73 sqM); Potassium 4.3 mmol/L (3.5-5.1); Sodium 138 mmol/L (137-145); Total Bilirubin 0.3 mg/dL (0.2-1.3); Total Protein 6.9 g/dL (6.3-8.2)
[2023-05-16 18:10] LABS: Appearance,Urine Cloudy (Clear); Bacteria,Urine Occasional /hpf; Bilirubin,Urine Negative (Negative); Blood,Urine Moderate (Negative); Color,Urine Light Yellow; Glucose,Urine (UA) Negative (Negative); Ketones,Urine Negative (Negative); Leukocyte Esterase,Urine Large (Negative); Mucus,Urine Rare /hpf; Nitrite,Urine Negative (Negative); Protein,Urine Trace (Negative); RBC,Urine 20 /hpf (0-5); Specific Gravity,Urine 1.022 (1.001-1.035); Squamous Epithelial Cell,Urine 41 /hpf (0-4); Urobilinogen,Urine <2.0 mg/dL (<2.0); WBC,Urine 56 /hpf (0-5)
[2023-05-16 18:39] LABS: Eosinophils # (M) 0.27 k/uL (0-0.7); Large Platelets Present; Lymphocytes # (M) 2.68 k/uL (1.0-4.8); Monocytes # (M) 0.54 k/uL (0-1.0); Neutrophils # (M) 9.92 k/uL (1.3-7.7); Neutrophils % (M) 74 %; Nucleated Red Blood Cells 0 /100 WBC (0-0); Total Cells Counted 100
--- NOTE | 2023-05-16 19:26 | XR ---
EXAMINATION TYPE: XR chest 2V DATE OF EXAM: 05/16/2023 7:09 PM CLINICAL INDICATION:Female, 38 years old with history of exertional dyspnea; COMPARISON: Chest radiographs from 09/02/2022 TECHNIQUE: XR chest 2V Frontal and lateral views of the chest. FINDINGS: Lungs/Pleura: There is no evidence of pleural effusion, focal consolidation, or pneumothorax. Pulmonary vascularity: Unremarkable. Heart/mediastinum: Cardiomediastinal silhouette is unremarkable. Musculoskeletal: No acute osseous pathology. IMPRESSION: No acute cardiopulmonary disease/process.
[2023-05-16 19:34] LABS: INR 0.9 (<1.2); Prothrombin Time 10.5 sec (10.0-12.5)
[2023-05-16 19:36] LABS: Partial Thromboplastin Time 21.5 sec (22.0-30.0)
[2023-05-16 20:49] VITALS: BP 117/70; PULSE 62
== END 2023-05-16 20:39 | disposition home or self-care (01) ==
LOC: EC 16:30
DX: N39.0 Urinary tract infection, site not specified (principal); R51.9 Headache, unspecified; Z87.891 Personal history of nicotine dependence; Z88.8 Allergy status to other drugs, medicaments and biological substances
CPT/HCPCS: 36415; 93005; 85379; 80053; 84484; 85025; 85610; 85730; 81001; 87086; 87636; 71046; 99284; 96374; 96375 ×2; 96361; J2930; J2405; J1885

== ENCOUNTER 2023-08-15 05:47 | Emergency (ER) | payer OTHER ==
[2023-08-15 05:51] VITALS: RESP 18; TEMP 97.9
--- NOTE | 2023-08-15 06:47 | ED ---
Headache HPI - General Chief Complaint: Headache Stated Complaint: Headache NVD Time Seen by Provider: 08/15/23 05:53 Source: patient, RN notes reviewed Mode of arrival: ambulatory Limitations: no limitations - History of Present Illness Initial Comments: 38-year-old female presents emergency department chief complaint of headache, nausea vomiting and cough. Patient states she got sick at work yesterday in which she works at a [employer] so she was sent home from work. She states that she cults morning she continues a headache she states she struggles with migraines so she used her ice Had no relief. Patient states that she still has a lingering cough and congestion and she is concerned about work so she presents to the emergency department. Denies any known fever denies chest pain denies abdominal pain. - Related Data Previous Rx's Medication Instructions Recorded Amoxic-Pot Clav 875-125Mg 1 each PO Q12HR 5 Days #10 tab 08/02/22 [Augmentin 875-125] DULoxetine HCL [Cymbalta] 60 mg PO BID 14 Days #28 cap 08/02/22 QUEtiapine FUMARATE [SEROquel] 300 mg PO HS 14 Days #14 tab 08/02/22 QUEtiapine [SEROquel] 50 mg PO DAILY 14 Days #14 tab 08/02/22 busPIRone HCl [Buspar] 20 mg PO TID 14 Days #84 tab 08/02/22 Nitrofurantoin Monohyd/M-Cryst 100 mg PO Q12HR #14 cap 05/16/23 [Macrobid] Albuterol Inhaler [Ventolin Hfa 1 - 2 puff INHALATION Q6H PRN #1 08/15/23 Inhaler] each Azithromycin [Zithromax Z Pack] 0 tab PO DIRECTED #6 tab 08/15/23 predniSONE 50 mg PO DAILY #5 tab 08/15/23 Allergies Allergy/AdvReac Type Severity Reaction Status Date / Time haloperidol [From Haldol] Allergy Severe Facial & Verified 08/15/23 05:51 Tongue Swelling/Lethargic diphenhydramine AdvReac Hallucinati Verified 08/15/23 05:51 [From Triaminic Allergy] ons Review of Systems ROS Statement: Those systems with pertinent positive or pertinent negative responses have been documented in the HPI. ROS Other: All systems not noted in ROS Statement are negative. Past Medical History Past Medical History: No Reported History Additional Past Medical History / Comment(s): migraines History of Any Multi-Drug Resistant Organisms: None Reported Past Surgical History: Section Additional Past Surgical History / Comment(s): ovarian cyst removal Past Anesthesia/Blood Transfusion Reactions: No Reported Reaction Past Psychological History: Bipolar, Depression, PTSD Smoking Status: Former smoker Past Alcohol Use History: Occasional Past Drug Use History: Marijuana - Past Family History Father Family Medical History: Blood Disorder, Cancer, Diabetes Mellitus, Hypertension Additional Family Medical History / Comment(s): type 1 diabetes, pancreatic cancer Mother Family Medical History: Diabetes Mellitus, Hypertension, Seizure Disorder Additional Family Medical History / Comment(s): type 2 General Exam Limitations: no limitations General appearance: alert, in no apparent distress Head exam: Present: atraumatic, normocephalic, normal inspection Eye exam: Present: normal appearance, PERRL, EOMI. Absent: scleral icterus, conjunctival injection, periorbital swelling ENT exam: Present: normal exam, normal oropharynx, mucous membranes moist Neck exam: Present: normal inspection, full ROM. Absent: tenderness, meningismus, lymphadenopathy Respiratory exam: Present: normal lung sounds bilaterally. Absent: respiratory distress, wheezes, rales, rhonchi, stridor Cardiovascular Exam: Present: regular rate, normal rhythm, normal heart sounds. Absent: systolic murmur, diastolic murmur, rubs, gallop, clicks GI/Abdominal exam: Present: soft, normal bowel sounds. Absent: distended, tenderness, guarding, rebound, rigid Course Vital Signs 08/15/23 08/15/23 08/15/23 05:48 07:51 08:20 Temperature 97.9 F Pulse Rate 81 65 76 Respiratory 18 18 Rate Blood Pressure 134/76 103/72 O2 Sat by Pulse 97 99 Oximetry Medical Decision Making - Medical Decision Making Was pt. sent in by a medical professional or institution (, PA, [employer], urgent care, hospital, or intermediate...) When possible be specific @ -No Did you speak to anyone other than the patient for history (EMS, parent, family, police, friend...)? What history was obtained from this source @ -No Did you review nursing and triage notes (agree or disagree)? Why? @ -I reviewed and agree with nursing and triage notes Were old charts reviewed (outside hosp., previous admission, EMS record, old EKG, old radiological studies, urgent care reports/EKG's, intermediate records)? Report findings @ -No old charts were reviewed Differential Diagnosis (chest pain, altered mental status, abdominal pain women, abdominal pain men, vaginal bleeding, weakness, fever, dyspnea, syncope, headache, dizziness, GI bleed, back pain, seizure, CVA, palpatations, mental health, musculoskeletal)? @ -COVID 19, RSV, influenza, pneumonia, acute bronchitis, URI, this list is not all inclusive EKG interpreted by me (3pts min.). @ -None X-rays interpreted by me (1pt min.). @ -Chest x-ray shows right-sided pneumonia CT interpreted by me (1pt min.). @ -None done U/S interpreted by me (1pt. min.). @ -None done What testing was considered but not performed or refused? (CT, X-rays, U/S, labs)? Why? @ -None What meds were considered but not given or refused? Why? @ -None Did you discuss the management of the patient with other professionals (professionals i.e. , PA, [employer], lab, RT, psych nurse, social service manager, pbx teacher, teacher, registration officer, case finishing machine adjuster)? Give summary @ -No Was smoking cessation discussed for >3mins.? @ -No Was critical care preformed (if so, how long)? @ -No Were there social determinants of health that impacted care today? How? (Homelessness, low income, unemployed, alcoholism, drug addiction, transportation, low edu. Level, literacy, decrease access to med. care, penitentiary, rehab)? @ -No Was there de-escalation of care discussed even if they declined (Discuss DNR or withdrawal of care, Hospice)? DNR status @ -No What co-morbidities impacted this encounter? (DM, HTN, Smoking, COPD, CAD, Cancer, CVA, ARF, Chemo, Hep., AIDS, mental health diagnosis, sleep apnea, morbid obesity)? @ -None Was patient admitted / discharged? Hospital course, mention meds given and route, prescriptions, significant lab abnormalities, going to OR and other pertinent info. @ -Discharge patient has evidence of pneumonia on x-ray patient had negative viral swab. Patient was given Rocephin And DuoNeb treatment. Patient is discharged with steroids, antibiotics and close follow-up. Undiagnosed new problem with uncertain prognosis? @ -No Drug Therapy requiring intensive monitoring for toxicity (Heparin, Nitro, Insulin, Cardizem)? @ -No Were any procedures done? @ -No Diagnosis/symptom? @ -Pneumonia Acute, or Chronic, or Acute on Chronic? @ -Acute Uncomplicated (without systemic symptoms) or Complicated (systemic symptoms)? @ -Uncomplicated Side effects of treatment? @ -No Exacerbation, Progression, or Severe Exacerbation? @ -No Poses a threat to life or bodily function? How? (Chest pain, USA, ID, pneumonia, PE, COPD, DKA, ARF, appy, cholecystitis, CVA, Diverticulitis, Homicidal, Suicidal, threat to staff... and all critical care pts) @ -Yes lower likelihood, pneumonia, respiratory failure - Lab Data Lab Results 08/15/23 Range/Units 05:58 Influenza Type A (PCR) Not Detected (Not Detectd) Influenza Type B (PCR) Not Detected (Not Detectd) RSV (PCR) Not Detected (Not Detectd) SARS-CoV-2 (PCR) Not Detected (Not Detectd) Disposition Clinical Impression: Pneumonia, Headache Disposition: HOME SELF-CARE Condition: Stable Instructions (If sedation given, give patient instructions): Pneumonia (ED) Additional Instructions: Please return to the Emergency Department if symptoms worsen or any other concerns. Prescriptions: predniSONE 50 mg PO DAILY #5 tab Albuterol Inhaler [Ventolin Hfa Inhaler] 1 - 2 puff INHALATION Q6H PRN #1 each PRN Reason: Shortness Of Breath Azithromycin [Zithromax Z Pack] 0 tab PO DIRECTED #6 tab Is patient prescribed a controlled substance at d/c from ED?: No Referrals: None,Stated [Primary Care Provider] - 1-2 days Time of Disposition: 08:26
[2023-08-15] MEDS: KETOROLAC 15 MG/ML 1 ML VIAL IM STA (07:49)
[2023-08-15] MEDS: KETOROLAC 15 MG/ML 1 ML VIAL IVP STA (07:49)
[2023-08-15] MEDS: METOCLOPRAMIDE 5 MG/ML 2 ML VIAL IM STA (07:49)
[2023-08-15] MEDS: METOCLOPRAMIDE 5 MG/ML 2 ML VIAL IVP STA (07:50)
[2023-08-15] MEDS: SODIUM CHLORIDE 0.9% 1,000 ML IV ONE (07:53)
[2023-08-15 07:56] VITALS: BP 103/72
--- NOTE | 2023-08-15 08:14 | XR ---
EXAMINATION TYPE: XR chest 2V DATE OF EXAM: 08/15/2023 COMPARISON: 05/16/2023 INDICATION: Nausea vomiting headache cough TECHNIQUE: Frontal and lateral views of the chest are obtained. FINDINGS: The heart size is normal. The pulmonary vasculature is normal. Some subtle infiltrate may be at the right base. Correlate for atelectasis or early pneumonia. Follow -up can be performed. An azygos fissure is present, normal variant.. IMPRESSION: 1. Subtle minimal infiltrate above the right diaphragm. Correlate for atelectasis or pneumonia.
[2023-08-15] MEDS: IPRATROPIUM-ALBUTEROL 3 ML NEB INHALATION STA (08:20)
[2023-08-15 08:28] VITALS: PULSE 79
[2023-08-15] MEDS: cefTRIAXone IN SWFI 1,000 MG/10 ML SYRINGE IVP STA (08:47)
== END 2023-08-15 08:50 | disposition home or self-care (01) ==
LOC: EC 05:47
DX: J18.9 Pneumonia, unspecified organism (principal); R51.9 Headache, unspecified; Z87.891 Personal history of nicotine dependence; Z88.8 Allergy status to other drugs, medicaments and biological substances
CPT/HCPCS: 94640; 87636; 71046; 99284; 96374; 96375 ×2; 96361; J2765; J0696; J1885

== ENCOUNTER 2023-11-15 07:44 | Emergency (ER) | payer OTHER ==
--- NOTE | 2023-11-15 08:18 | ED ---
Headache HPI - General Chief Complaint: Headache Stated Complaint: vomitting/blurred vision Time Seen by Provider: 11/15/23 07:49 Source: patient, RN notes reviewed Mode of arrival: ambulatory Limitations: no limitations - History of Present Illness Initial Comments: This is a 38-year-old female who presents to the emergency department for a migraine, nausea, and vomiting. Reports a longstanding history of migraines and states that yesterday she started to develop a migraine at work. She then started to dry heave and has felt dizzy. States that since yesterday her migraine has started to improve, however she feels like her vision is blurry and she is off balance. In general she feels very weak. Believes that this may be related to ongoing stress at work. She has generalized abdominal discomfort from all of the vomiting. She has not measured any fevers. Denies any chest pain or shortness of breath. MD Complaint: "migraine" - Related Data Previous Rx's Medication Instructions Recorded Amoxic-Pot Clav 875-125Mg 1 each PO Q12HR 5 Days #10 tab 08/02/22 [Augmentin 875-125] DULoxetine HCL [Cymbalta] 60 mg PO BID 14 Days #28 cap 08/02/22 QUEtiapine FUMARATE [SEROquel] 300 mg PO HS 14 Days #14 tab 08/02/22 QUEtiapine [SEROquel] 50 mg PO DAILY 14 Days #14 tab 08/02/22 busPIRone HCl [Buspar] 20 mg PO TID 14 Days #84 tab 08/02/22 Nitrofurantoin Monohyd/M-Cryst 100 mg PO Q12HR #14 cap 05/16/23 [Macrobid] Albuterol Inhaler [Ventolin Hfa 1 - 2 puff INHALATION Q6H PRN #1 08/15/23 Inhaler] each Azithromycin [Zithromax Z Pack] 0 tab PO DIRECTED #6 tab 08/15/23 predniSONE 50 mg PO DAILY #5 tab 08/15/23 Ketorolac [Toradol] 10 mg PO Q6HR PRN #15 tab 11/15/23 Nirmatrelvir/Ritonavir [Paxlovid 1 pack PO BID 5 Days #30 tab 11/15/23 300-100 mg Dose Pack] Ondansetron Odt [Zofran Odt] 4 mg PO Q8HR PRN #15 tab 11/15/23 cefUROXime axetiL [Ceftin] 500 mg PO BID 7 Days #14 tab 11/15/23 Allergies Allergy/AdvReac Type Severity Reaction Status Date / Time haloperidol [From Haldol] Allergy Severe Facial & Verified 11/15/23 07:49 Tongue Swelling/Lethargic diphenhydramine AdvReac Hallucinati Verified 11/15/23 07:49 [From Triaminic Allergy] ons Review of Systems ROS Statement: Those systems with pertinent positive or pertinent negative responses have been documented in the HPI. ROS Other: All systems not noted in ROS Statement are negative. Past Medical History Past Medical History: No Reported History Additional Past Medical History / Comment(s): migraines History of Any Multi-Drug Resistant Organisms: None Reported Past Surgical History: Section Additional Past Surgical History / Comment(s): ovarian cyst removal Past Anesthesia/Blood Transfusion Reactions: No Reported Reaction Past Psychological History: Bipolar, Depression, PTSD Smoking Status: Former smoker Past Alcohol Use History: Occasional Past Drug Use History: Marijuana - Past Family History Father Family Medical History: Blood Disorder, Cancer, Diabetes Mellitus, Hypertension Additional Family Medical History / Comment(s): type 1 diabetes, pancreatic cancer Mother Family Medical History: Diabetes Mellitus, Hypertension, Seizure Disorder Additional Family Medical History / Comment(s): type 2 General Exam Limitations: no limitations General appearance: alert, in no apparent distress Head exam: Present: atraumatic, normocephalic, normal inspection Eye exam: Present: normal appearance, PERRL, EOMI. Absent: scleral icterus, conjunctival injection, periorbital swelling Respiratory exam: Present: normal lung sounds bilaterally. Absent: respiratory distress, wheezes, rales, rhonchi, stridor Cardiovascular Exam: Present: regular rate, normal rhythm, normal heart sounds. Absent: systolic murmur, diastolic murmur, rubs, gallop, clicks GI/Abdominal exam: Present: soft, normal bowel sounds. Absent: distended, tenderness, guarding, rebound, rigid Neurological exam: Present: alert, oriented X3, CN II-XII intact Psychiatric exam: Present: normal affect, normal mood Skin exam: Present: warm, dry, intact, normal color. Absent: rash Course Vital Signs 11/15/23 11/15/23 11/15/23 07:45 08:27 10:37 Temperature 98.3 F 98.1 F Pulse Rate 88 86 77 Respiratory 18 18 16 Rate Blood Pressure 117/81 100/58 97/60 O2 Sat by Pulse 95 97 97 Oximetry Medical Decision Making - Medical Decision Making This is a 38 year old female who presents to the emergency department for a headache, nausea, and vomiting. Was pt. sent in by a medical professional or institution? @ -No Did you speak to anyone other than the patient for history? @ -No Did you review nursing and triage notes? @ -Yes, and I agree, it is accurate with regards to the patient's symptoms. Were old charts reviewed? @ -No Differential Diagnosis? @ -Differential Headache: Migraine, tension, cluster, carbon monoxide, central venous thrombosis, pension karma temporal arteritis, acute closure glaucoma, intercranial hemorrhage, mastoiditis, sinusitis, head injury, this is not meant to be an all-inclusive list. EKG interpreted by me (3pts min.)? @ -Not obtained X-rays interpreted by me (1pt min.)? @ -Not obtained CT interpreted by me (1pt min.)? @ -Not obtained U/S interpreted by me (1pt. min.)? @ -Not obtained What testing was considered but not performed? (CT, X-rays, U/S, labs)? Why? @ -None What meds were considered but not given? Why? @ -None Did you discuss the management of the patient with other professionals? @ -No Did you reconcile home meds? @ -No Was smoking cessation discussed for >3mins.? @ -No Was critical care preformed (if so, how long)? @ -No Were there social determinants of health that impacted care today? How? (Homelessness, low income, unemployed, alcoholism, drug addiction, transportation, low edu. Level, literacy, decrease access to med. care, intermediate, rehab)? @ -No Was there de-escalation of care discussed even if they declined? (Discuss DNR or withdrawal of care, Hospice)? @ -No What co-morbidities impacted this encounter? (DM, HTN, Smoking, COPD, CAD, Cancer, CVA, Hep., AIDS, mental health diagnosis, sleep apnea, morbid obesity)? @ -Migraines Was patient admitted / discharged? @ -Discharged. Lab work unremarkable. Urinalysis consistent with infection and urine was sent for culture. Patient also positive for COVID-19. Symptoms well-controlled in the emergency department. We discussed the option of Paxlovid, and she requested to proceed. 1 g of Rocephin administered in the emergency department prior to discharge. Prescription for cefuroxime, Paxlovid, Toradol, and Zofran provided. Patient discharged home in stable condition. Case discussed with ED attending Dr. Joseph. Return precautions reviewed in depth, the patient is instructed to return to the emergency department with any new, worsening, or concerning symptoms. Patient verbalized understanding. Undiagnosed new problem with uncertain prognosis? @ -None Drug Therapy requiring intensive monitoring for toxicity (Heparin, Nitro, Insulin, Cardizem)? @ -None Were any procedures done? @ -None Diagnosis/symptom? @ -Migraine, UTI, COVID-19 Acute, or Chronic, or Acute on Chronic? @ -Acute Uncomplicated (without systemic symptoms) or Complicated (systemic symptoms)? @ -Uncomplicated Side effects of treatment? @ -None Exacerbation, Progression, or Severe Exacerbation] @ -Not applicable Poses a threat to life or bodily function? @ -No - Lab Data Result diagrams: 11/15/23 08:54 11/15/23 08:54 Lab Results 11/15/23 11/15/23 11/15/23 Range/Units 08:54 08:54 08:54 WBC 8.5 (3.8-10.6) k/uL RBC 4.78 (3.80-5.40) m/uL Hgb 12.3 (11.4-16.0) gm/dL Hct 39.4 (34.0-46.0) % MCV 82.4 (80.0-100.0) fL MCH 25.7 (25.0-35.0) pg MCHC 31.2 (31.0-37.0) g/dL RDW 14.7 (11.5-15.5) % Plt Count 247 (150-450) k/uL MPV 9.6 Neutrophils % 75 % Lymphocytes % 8 % Monocytes % 11 % Eosinophils % 2 % Basophils % 0 % Neutrophils # 6.4 (1.3-7.7) k/uL Lymphocytes # 0.7 L (1.0-4.8) k/uL Monocytes # 0.9 (0-1.0) k/uL Eosinophils # 0.2 (0-0.7) k/uL Basophils # 0.0 (0-0.2) k/uL Hypochromasia Moderate Sodium 136 L (137-145) mmol/L Potassium 4.7 (3.5-5.1) mmol/L Chloride 103 (98-107) mmol/L Carbon Dioxide 23 (22-30) mmol/L Anion Gap 10 mmol/L BUN 10 (7-17) mg/dL Creatinine 0.69 (0.52-1.04) mg/dL Est GFR (CKD-EPI)AfAm >90 (>60 ml/min/1.73 sqM) Est GFR (CKD-EPI)NonAf >90 (>60 ml/min/1.73 sqM) Glucose 97 (74-99) mg/dL Plasma Lactic Acid Sudhir 0.9 (0.7-2.0) mmol/L Calcium 9.5 (8.4-10.2) mg/dL Total Bilirubin 0.6 (0.2-1.3) mg/dL AST 24 (14-36) U/L ALT 11 (4-34) U/L Alkaline Phosphatase 42 (38-126) U/L Total Protein 7.2 (6.3-8.2) g/dL Albumin 4.4 (3.5-5.0) g/dL Urine Color Urine Appearance (Clear) Urine pH (5.0-8.0) Ur Specific [place] (1.001-1.035) Urine Protein (Negative) Urine Glucose (UA) (Negative) Urine Ketones (Negative) Urine Blood (Negative) Urine Nitrite (Negative) Urine Bilirubin (Negative) Urine Urobilinogen (<2.0) mg/dL Ur Leukocyte Esterase (Negative) Urine RBC (0-5) /hpf Urine WBC (0-5) /hpf Ur Squamous Epith Cells (0-4) /hpf Urine Bacteria (None) /hpf Urine Mucus (None) /hpf Urine Trichomonas (None) /hpf Urine HCG, Qual (Not Detectd) Influenza Type A (PCR) (Not Detectd) Influenza Type B (PCR) (Not Detectd) RSV (PCR) (Not Detectd) SARS-CoV-2 (PCR) (Not Detectd) 11/15/23 11/15/23 11/15/23 Range/Units 08:54 08:54 08:54 WBC (3.8-10.6) k/uL RBC (3.80-5.40) m/uL Hgb (11.4-16.0) gm/dL Hct (34.0-46.0) % MCV (80.0-100.0) fL MCH (25.0-35.0) pg MCHC (31.0-37.0) g/dL RDW (11.5-15.5) % Plt Count (150-450) k/uL MPV Neutrophils % % Lymphocytes % % Monocytes % % Eosinophils % % Basophils % % Neutrophils # (1.3-7.7) k/uL Lymphocytes # (1.0-4.8) k/uL Monocytes # (0-1.0) k/uL Eosinophils # (0-0.7) k/uL Basophils # (0-0.2) k/uL Hypochromasia Sodium (137-145) mmol/L Potassium (3.5-5.1) mmol/L Chloride (98-107) mmol/L Carbon Dioxide (22-30) mmol/L Anion Gap mmol/L BUN (7-17) mg/dL Creatinine (0.52-1.04) mg/dL Est GFR (CKD-EPI)AfAm (>60 ml/min/1.73 sqM) Est GFR (CKD-EPI)NonAf (>60 ml/min/1.73 sqM) Glucose (74-99) mg/dL Plasma Lactic Acid Sudhir (0.7-2.0) mmol/L Calcium (8.4-10.2) mg/dL Total Bilirubin (0.2-1.3) mg/dL AST (14-36) U/L ALT (4-34) U/L Alkaline Phosphatase (38-126) U/L Total Protein (6.3-8.2) g/dL Albumin (3.5-5.0) g/dL Urine Color Yellow Urine Appearance Turbid H (Clear) Urine pH 5.5 (5.0-8.0) Ur Specific [place] 1.021 (1.001-1.035) Urine Protein Trace H (Negative) Urine Glucose (UA) Negative (Negative) Urine Ketones Negative (Negative) Urine Blood Moderate H (Negative) Urine Nitrite Negative (Negative) Urine Bilirubin Negative (Negative) Urine Urobilinogen <2.0 (<2.0) mg/dL Ur Leukocyte Esterase Large H (Negative) Urine RBC 175 H (0-5) /hpf Urine WBC >182 H (0-5) /hpf Ur Squamous Epith Cells 11 H (0-4) /hpf Urine Bacteria Occasional H (None) /hpf Urine Mucus Moderate H (None) /hpf Urine Trichomonas Rare H (None) /hpf Urine HCG, Qual Not Detected (Not Detectd) Influenza Type A (PCR) Not Detected (Not Detectd) Influenza Type B (PCR) Not Detected (Not Detectd) RSV (PCR) Not Detected (Not Detectd) SARS-CoV-2 (PCR) Detected A (Not Detectd) Disposition Clinical Impression: COVID-19, UTI (urinary tract infection), Migraine Disposition: HOME SELF-CARE Instructions (If sedation given, give patient instructions): Acute Headache (ED), COVID-19 (Coronavirus Disease 2019) (ED), How to Recover from COVID-19 at Home (ED) Additional Instructions: Return to the emergency department with any new, worsening, or concerning symptoms. Take the antibiotic as prescribed for 7 days. Take the Paxlovid as prescribed for 5 days. Take the Toradol with Tylenol as needed for pain relief. If you choose to take the Toradol, do not take any other anti-inflammatories such as ibuprofen, take one or the other. Take the Zofran up to every 8 hours as needed for nausea and vomiting. Slowly advance your diet as tolerated and remain well-hydrated. Prescriptions: cefUROXime axetiL [Ceftin] 500 mg PO BID 7 Days #14 tab Nirmatrelvir/Ritonavir [Paxlovid 300-100 mg Dose Pack] 1 pack PO BID 5 Days #30 tab Ketorolac [Toradol] 10 mg PO Q6HR PRN #15 tab PRN Reason: Pain Ondansetron Odt [Zofran Odt] 4 mg PO Q8HR PRN #15 tab PRN Reason: Nausea And Vomiting Is patient prescribed a controlled substance at d/c from ED?: No Referrals: None,Stated [Primary Care Provider] - 1-2 days Time of Disposition: 09:58
[2023-11-15 08:46] VITALS: TEMP 98.1
[2023-11-15] MEDS: DEXAMETHASONE SOD PHOSPHATE 10 MG/ML 1 ML VIAL IVP STA (09:12)
[2023-11-15] MEDS: PANTOPRAZOLE 40 MG/10 ML VIAL IVP STA (09:12)
[2023-11-15] MEDS: METOCLOPRAMIDE 5 MG/ML 2 ML VIAL IVP STA (09:13)
[2023-11-15] MEDS: KETOROLAC 15 MG/ML 1 ML VIAL IVP STA (09:13)
[2023-11-15 09:14] LABS: Basophils % (A) 0 %; Eosinophils # (A) 0.2 k/uL (0-0.7); Eosinophils % (A) 2 %; HCT 39.4 % (34.0-46.0); HGB 12.3 gm/dL (11.4-16.0); Hypochromasia Moderate; Lymphocytes # (A) 0.7 k/uL (1.0-4.8); Lymphocytes % (A) 8 %; MCH 25.7 pg (25.0-35.0); MCHC 31.2 g/dL (31.0-37.0); MCV 82.4 fL (80.0-100.0); Mean Platelet Volume 9.6; Monocytes # (A) 0.9 k/uL (0-1.0); Monocytes % (A) 11 %; Neutrophils # (A) 6.4 k/uL (1.3-7.7); Neutrophils % (A) 75 %; Platelet Count 247 k/uL (150-450); RBC 4.78 m/uL (3.80-5.40); RDW 14.7 % (11.5-15.5); WBC 8.5 k/uL (3.8-10.6)
[2023-11-15] MEDS: SODIUM CHLORIDE 0.9% 1,000 ML IV STA (09:14)
[2023-11-15 09:19] LABS: ALT 11 U/L (4-34); AST 24 U/L (14-36); African American GFR (CKD) >90 (>60 ml/min/1.73 sqM); Albumin 4.4 g/dL (3.5-5.0); Alkaline Phosphatase 42 U/L (38-126); Anion Gap 10 mmol/L; Blood Urea Nitrogen 10 mg/dL (7-17); Calcium 9.5 mg/dL (8.4-10.2); Carbon Dioxide 23 mmol/L (22-30); Chloride 103 mmol/L (98-107); Glucose 97 mg/dL (74-99); Non-African American GFR(CKD) >90 (>60 ml/min/1.73 sqM); Potassium 4.7 mmol/L (3.5-5.1); Sodium 136 mmol/L (137-145); Total Bilirubin 0.6 mg/dL (0.2-1.3); Total Protein 7.2 g/dL (6.3-8.2)
[2023-11-15 09:20] LABS: Appearance,Urine Turbid (Clear); Bacteria,Urine Occasional /hpf; Bilirubin,Urine Negative (Negative); Blood,Urine Moderate (Negative); Color,Urine Yellow; Glucose,Urine (UA) Negative (Negative); Ketones,Urine Negative (Negative); Leukocyte Esterase,Urine Large (Negative); Mucus,Urine Moderate /hpf; Nitrite,Urine Negative (Negative); PH, Urine 5.5 (5.0-8.0); Protein,Urine Trace (Negative); RBC,Urine 175 /hpf (0-5); Specific Gravity,Urine 1.021 (1.001-1.035); Squamous Epithelial Cell,Urine 11 /hpf (0-4); Trichomonas,Urine Rare /hpf; Urobilinogen,Urine <2.0 mg/dL (<2.0); WBC,Urine >182 /hpf (0-5)
[2023-11-15] MEDS: cefTRIAXone IN SWFI 1,000 MG/10 ML SYRINGE IVP STA (10:23)
[2023-11-15] MEDS: ONDANSETRON 4 MG/2 ML VIAL IVP STA (10:23)
[2023-11-15 10:39] VITALS: BP 97/60; PULSE 77; RESP 16
== END 2023-11-15 10:38 | disposition home or self-care (01) ==
LOC: EC 07:44
CPT/HCPCS: 36415; 80053; 81001; 81025; 83605; 85025; 87077; 87086; 87186; 87636